=== PATIENT | female | born 1955 | race Caucasian/White ===

== ENCOUNTER 2019-12-17 08:41 | Outpatient (CLI) | payer BC, SELFPAY ==
--- NOTE | ~2019-12-17 | DEXA_ITS ---
Bone Density Report Name: Rosaura Barber Age: 64 Sex: Female Ethnicity: White Date of : 1955 Indication: postmenopausal osteoporosis; parental hip fracture; height loss; prior fracture; cancer; asthma or emphysema; hysterectomy; Referring Provider: Tylor Jaeger Study: Bone densitometry was performed. Exam Date: December 17, 2019 Accession number: [id number] Bone Density: Region BMD T-score Z-score Classification AP Spine (L2, L3, L4) 0.794 -2.6 -0.8 Osteoporosis Femoral Neck (Left) 0.683 -1.5 0.0 Osteopenia Total Hip (Left) 0.984 0.3 1.5 Normal Total Hip Bilateral Avg 0.967 0.2 1.4 Normal Femoral Neck (Right) 0.713 -1.2 0.3 Osteopenia Total Hip (Right) 0.949 0.1 1.3 Normal World Health Organization criteria for BMD impression classify patients as: Normal (T-score at or above -1.0), Osteopenia (T-score between -1.0 and -2.5), or Osteoporosis (T-score at or below -2.5). 10-year Fracture Risk: FRAX not reported because: Some T-score for Spine Total or Hip Total or Femoral Neck at or below -2.5 Previous Exams: Region Exam Age BMD T-score BMD Change BMD Change Date g/cm2 vs Baseline vs Previous AP Spine(L2, L3, L4) 12/17/2019 64 0.794 -2.6 -0.100(-11.2%) 0.012(1.5%) 11/08/2017 62 0.782 -2.7 -0.112(-12.5%) -0.112(-12.5%) 09/29/2004 49 0.894 -1.7 Total Hip(Left) 12/17/2019 64 0.984 0.3 0.001(0.1%)# -0.013(-1.3%) 11/08/2017 62 0.997 0.4 0.014(1.4%)# 0.014(1.4%)# 09/29/2004 49 0.983 0.3 Total Hip(Right) 12/17/2019 64 0.949 0.1 -0.005(-0.5%)# 0.040(4.4%)* 11/08/2017 62 0.909 -0.3 -0.045(-4.7%)# -0.045(-4.7%)# 09/29/2004 49 0.953 0.1 *Denotes significance at 95% confidence level, LSC for AP Spine = 0.022 g/cm2, LSC for Total Hip = 0.027 g/cm2 Clinical Information Provided by Patient: Has had a low trauma fracture Parent has had a hip fracture Has used the following medications: Vitamin D, Calcium Has the following medical conditions: Asthma or Emphysema, Cancer, Hysterectomy Patient maximum height was 62.5 No regular weight bearing exercise Does not regularly consume dairy products Drinks caffeinated beverages Onset of menses at age 12 Number of children 2 Impression: The patient has established osteoporosis, based on the Total Spine T-score and the existence of a prior fracture. The patient has risk factors, including: parental hip fracture, previous fracture. No significant bone l
== END 2019-12-17 08:42 | disposition home or self-care (01) ==
LOC: ANHIMG 08:44
PROVIDERS: PCP Internal Medicine; Visit Provider Internal Medicine Hematology & Oncology
DX: M81.0 Age-related osteoporosis without current pathological fracture (principal); M85.852 Other specified disorders of bone density and structure, left thigh; M85.851 Other specified disorders of bone density and structure, right thigh
CPT/HCPCS: 77080

== ENCOUNTER 2021-08-02 08:02 | Outpatient (CLI) | payer MEDICARE, SELFPAY ==
--- NOTE | ~2021-08-02 | CT_ITS ---
EXAMINATION: CT diagnostic chest w con EXAM DATE: 08/02/2021 08:55 INDICATION: Lung nodule. MDS. TECHNIQUE: Spiral CT of the chest following intravenous injection of 75 mL Omnipaque 350. Axial, cor onal and sagittal images of the chest were reviewed. Coronal maximum intensity pixel images of chest reviewed. The dose-length product (DLP) for this examination was 498.84 mGy-cm. The exposure was t ailored according to patient size (auto mA exposure control), and iterative reconstruction (ASIR) was used as additional dose reduction technique. Correlation is made to chest x-ray from 2011. FINDINGS: There is an 8 mm nodule in the left upper lobe which may have faint calcification centrall y versus less likely possibility of enhancement. No spiculations. Appearance more suggestive of granu trang or hamartoma than malignancy, but a PET/CT, or a follow-up [address] without contrast is recommended for a nodule of this size. There are no pleural or pericardial effusions. Tracheobronchial tree is patent. There is no media stinal, hilar or axillary lymphadenopathy. There is no pneumothorax. Heart normal in size. Ther e is mild coronary arterial calcification, arterial sclerosis. Hepatic steatosis. There is thoracic spondylosis without osteoblastic or osteolytic lesions identified. IMPRESSION: Left upper lobe indeterminate nodule; recommend PET/CT or 3 month follow-up noncontrast c hest CT. Reviewed, dictated and finalized at location A. OOM HOST/HOSTESS IMPRESSION: Left upper lobe indeterminate nodule; recommend PET/CT or 3 month f ollow-up noncontrast chest CT.
[2021-08-02 08:43] LABS: Estimated Glomerular Filt Rate > 60
== END 2021-08-02 08:03 | disposition home or self-care (01) ==
PROVIDERS: PCP Internal Medicine; Visit Provider Internal Medicine Hematology & Oncology
DX: R91.1 Solitary pulmonary nodule (principal)
CPT/HCPCS: 71260; Q9967

== ENCOUNTER 2021-10-31 08:44 | Outpatient (CLI) | payer MEDICARE, SELFPAY ==
[2021-10-31 09:13] LABS: Basophils Percent Auto 0.3 % (0.2-1.2); Eosinophils Absolute Auto 0.3 K/mm3 (0-0.3); Eosinophils Percent Auto 3.2 % (0-4.4); Hematocrit 32.4 % (37.0-47.0); Immature Granulocyte Absolute 0.03 K/mm3 (0.00-0.031); Immature Granulocyte Percent A 0.3 % (0-0.5); Lymphocytes Absolute Auto 2.92 K/mm3 (0.9-3.2); Lymphocytes Percent Auto 33.4 % (18.3-44.2); Mean Corpuscular HGB Conc 30.9 g/dl (32-36); Mean Corpuscular Hemoglobin 30.3 pg (26-34); Mean Corpuscular Volume 98.2 fl (80-100); Mean Platelet Volume 9.4 fl (7.4-10.4); Monocytes Absolute Auto 0.5 K/mm3 (0.1-0.6); Monocytes Percent Auto 5.6 % (2.6-8.5); Neutrophils Percent Auto 57.2 % (45.5-73.1); Platelet Count Result 244 k/mm3 (150-375); Red Cell Distribution Width 13.3 % (11.5-14.5); White Blood Count 8.7 K/mm3 (4.5-10.0)
[2021-10-31 12:30] LABS: Iron 113 ug/dL (37-170)
[2021-10-31 12:44] LABS: Percent Iron Saturation 44 % (20-50)
== END 2021-10-31 08:45 | disposition home or self-care (01) ==
PROVIDERS: PCP Internal Medicine; Visit Provider Internal Medicine Hematology & Oncology
DX: D46.9 Myelodysplastic syndrome, unspecified (principal)
CPT/HCPCS: 36415; 82607; 82728; 83540; 83550; 85025

== ENCOUNTER 2021-11-02 09:55 | Outpatient (CLI) | payer MEDICARE, SELFPAY ==
--- NOTE | ~2021-11-02 | CT_ITS ---
EXAMINATION: CT diagnostic chest wo con DATE: 11/02/2021 10:16 INDICATION: Follow-up lung nodules TECHNIQUE: Computed tomography (CT) of the chest was performed without intravenous contrast. The dose -length product was 340.33 mGy-cm. Automated exposure control and iterative reconstruction technique were employed. COMPARISON: CT dated 08/02/2021 FINDINGS: There is a 10 x 9 mm left upper lobe nodule without significant change from prior examinati on allowing for technique. This nodule measures maximum SUV of 143 and is likely centrally calcified. No thoracic lymphadenopathy. No significant pleural or pericardial effusion. Fatty infiltration of t he liver. There is a small 3 mm satellite nodule which is unchanged. No endobronchial lesions. There is a 3 mm left lower lobe nodule, image 77, unchanged. There is a stable pleural-based right lower lo be nodule measuring 6 x 3 mm, image 78. No focal airspace consolidation. IMPRESSION: 1. Stable bilateral pulmonary nodules, largest in the left upper lobe measuring 10 mm, likely sequela of previous infectious/inflammatory disease. Follow-up low dose CT chest in 12 months recommended. Reviewed, dictated and finalized at location A. OENGRAVING RETOUCHER IMPRESSION: 1. Stable bilateral pulmonary nodules, largest in the left upper lobe measuring 10 mm, likely sequela of previous infectious/inflammatory disease. Follow-up l ow dose CT chest in 12 months recommended.
== END 2021-11-02 09:56 | disposition home or self-care (01) ==
LOC: ANHIMG 10:00
PROVIDERS: PCP Internal Medicine; Visit Provider Internal Medicine Hematology & Oncology
DX: R91.8 Other nonspecific abnormal finding of lung field (principal)
CPT/HCPCS: 71250

== ENCOUNTER 2022-11-01 06:34 | Outpatient (CLI) | payer MEDICARE, SELFPAY ==
--- NOTE | ~2022-11-01 | CT_ITS ---
EXAMINATION: CT diagnostic chest wo con DATE: 11/01/2022 07:07 INDICATION: Lung nodule. TECHNIQUE: Computed tomography (CT) of the chest was performed without intravenous contrast. The dose -length product was 232.92 mGy-cm. Automated exposure control and iterative reconstruction technique were employed. COMPARISON: CT dated 11/02/2021 and 08/02/2021 FINDINGS: Heart size is normal. No significant pleural or pericardial effusion. Status post cholecyst ectomy. No thoracic lymphadenopathy. No pneumothorax. There is a calcified nodule in the left upper l obe measuring 8 mm, consistent with chronic granulomatous disease. Stable 3 mm left upper lobe nodule . Stable 3-4 mm pleural-based nodule right lower lobe. Stable 3-4 mm right middle lobe nodule, image 68 . Stable 2 mm pleural-based nodules, image 60 in the right mid thorax laterally. No endobronchial lesio ns. No pneumothorax. Mild thoracic spondylosis. Mild chronic anterior wedging of multiple midthoracic vertebra. No focal lytic or blastic lesions. IMPRESSION: 1. Stable bilateral pulmonary nodules, likely benign granulomatous disease. Consider follow-up low do se CT chest in 12 months. Reviewed, dictated and finalized at location B. NISTRATIVE DIETITIAN IMPRESSION: 1. Stable bilateral pulmonary nodules, likely benign granulomatous disease. 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
== END 2022-11-01 06:35 | disposition home or self-care (01) ==
PROVIDERS: PCP Physician Assistant Medical; Visit Provider Internal Medicine Hematology & Oncology
DX: R91.8 Other nonspecific abnormal finding of lung field (principal)
CPT/HCPCS: 71250

== ENCOUNTER 2023-09-10 14:37 | Outpatient (CLI) | payer MEDICARE, SELFPAY ==
[2023-09-10 16:55] LABS: Appearance Urine Cloudy (Clear); Bacteria Urine None Seen /hpf; Bilirubin Urine Negative (Negative); Blood Urine Negative (Negative); Calcium Oxalate Crystals Urine Present /hpf; Color Urine Yellow (Yellow); Glucose Urine UA Negative (Negative); Ketones Urine Trace mg/dL (Negative); Leukocyte Esterase Ur Negative LEU/UL (Negative); Need Manual Microscopic Reviewed; Nitrate Urine Negative (Negative); Non Pathogenic Casts 0-2; Protein Urine Negative (Negative); RBC Urine 0-2 /hpf (0-2); Specific Grav Ur 1.024 (1.001-1.035); Squamous Epithelial Cell Urine Few /hpf (Few); Urobilinogen Urine 0.2 mg/dL (<2.0); WBC Urine 0-5 /hpf
[2023-09-10 17:01] LABS: Add Urine Microscopic? YES
== END 2023-09-10 14:38 | disposition home or self-care (01) ==
LOC: ANHLAB 14:40
PROVIDERS: Nurse Practitioner Family; PCP Physician Assistant Medical; Visit Provider Internal Medicine Hematology & Oncology
DX: N39.0 Urinary tract infection, site not specified (principal)
CPT/HCPCS: 81001

== ENCOUNTER 2023-09-14 10:43 | Emergency (ER) | payer MEDICARE, SELFPAY ==
[2023-09-14 10:48] VITALS: BP 142/82; PULSE 100; RESP 14; TEMP 36.7; O2SAT 98
--- NOTE | 2023-09-14 11:26 | ED.WOUNDLAC ---
HPI - Wound/Laceration General Chief Complaint: Wound/Laceration Stated Complaint: cut off tip of finger on Sunday Time Seen by Provider: 09/14/23 11:05 History of Present Illness HPI narrative: 68-year-old female history of hypertension reports for evaluation for concern for an infection to her left finger. Patient accidentally avulsed her left 2nd finger 3 days ago while using a filler leaf cutter long while sewing. States she with [facility] where they stop the bleeding, obtained x-rays are unremarkable. She states her tetanus is up-to-date. They did not start her on any medications but did apply a Xeroform dressing and advised her to follow-up with her PCP. States the body she followed up with her PCP who prescribed her pain medications which she has been taking with improvement. She reports today because yesterday she developed a fluid-filled blister to the proximal phalanx of the left 2nd finger and today developed streaking down the finger. She has been soaking her finger and hydrogen peroxide and soapy water. She denies fever, vomiting or other signs of infection. No history of diabetes or vascular disease. Related Data Home Medications Medication Instructions Recorded Confirmed ffuoalvcwnco-oxszkyqs-chicq acid 1 cap PO DAILY 07/05/20 08/10/23 400 mcg-vitamin K 80 mcg capsule (Multi For Her 50 Plus) aspirin 81 mg tablet,delayed 81 mg PO DAILY 11/22/20 08/10/23 release phenylephrine HCl 10 mg tablet 10 mg PO Q4-6H PRN 08/10/23 08/10/23 (Sudafed PE) Allergies Allergy/AdvReac Type Severity Reaction Status Date / Time iodine Allergy Intermediate SWELLING Verified 09/14/23 10:51 Sulfa (Sulfonamide Allergy Intermediate hives Verified 09/14/23 10:51 Antibiotics) shellfish derived Allergy Mild Swelling Verified 09/14/23 10:51 of Lip/Tongue/Throat amlodipine AdvReac Other Verified 09/14/23 10:51 Review of Systems Review of Systems: CONSTITUTIONAL: Denies fever, chills, or sweats. EYES: Denies visual changes, redness, or discharge. ENT: Denies rhinorrhea, congestion, sore throat, or otalgia. CARDIOVASCULAR: Denies chest pain, palpitations, or edema. RESPIRATORY: Denies cough or dyspnea. GASTROINTESTINAL: Denies abdominal pain, nausea, vomiting, or diarrhea. GENITOURINARY: Denies dysuria or hematuria. SKIN: See HPI MUSCULOSKELETAL: Denies back pain, joint pain, or myalgia. NEUROLOGIC: Denies headache, numbness, or weakness. PSYCHIATRIC: Denies anxiety or depression. [facility] Past Medical History Medical History Arthritis Arthritis of finger of left hand Depression Hepatic steatosis Hyperglycemia Trigger finger, left little finger Surgical History Surgical History History of cholecystectomy History of elbow surgery ORIF History of tonsillectomy History of total hysterectomy with bilateral salpingo-oophorectomy (BSO) Family History Family History Sibling Diabetes mellitus Malignant neoplasm of prostate Mother Family history of suicide Father Family history of Alzheimer's disease Social History Social History Smoking status: Never smoker Second hand tobacco smoke exposure: No Alcohol intake: never Substance use: never Substance use type: does not use Lack of Transportation: No Lack of Food: Never True Current Housing: I Have Housing Concerned About Future Housing: No Difficulty Paying Gas/Electric Bills: No Difficulty Paying for Meds: No Currently Unemployed: No Difficulty w/ Childcare or Family Care: No Living arrangements: with family Occupation/Education: retired Gender identity (if verbalized by the patient): Female Sexual Orientation (if Verbalized by the Patient): Straight or Heterosexual
[2023-09-14] MEDS: IBUPROFEN 600 MG TABLET PO (11:41)
[2023-09-14] MEDS: CEPHALEXIN 500 MG CAPSULE PO (11:42)
[2023-09-14 11:49] VITALS: RESP 22
== END 2023-09-14 11:53 | disposition home or self-care (01) ==
PROVIDERS: Emergency Provider Physician Assistant; PCP Nurse Practitioner Family
DX: S61.201A Unspecified open wound of left index finger without damage to nail, initial encounter (principal); L03.012 Cellulitis of left finger; I10 Essential (primary) hypertension; M19.042 Primary osteoarthritis, left hand; Z79.82 Long term (current) use of aspirin; Z90.49 Acquired absence of other specified parts of digestive tract; Z90.710 Acquired absence of both cervix and uterus; Z90.722 Acquired absence of ovaries, bilateral; Z90.79 Acquired absence of other genital organ(s); W27.8XXA Contact with other nonpowered hand tool, initial encounter
CPT/HCPCS: 99283; A9270

== ENCOUNTER 2023-11-21 09:49 | Outpatient (CLI) | payer MEDICARE, SELFPAY ==
--- NOTE | ~2023-11-21 | CT_ITS ---
EXAMINATION: CT diagnostic chest wo con DATE: 11/21/2023 10:04 INDICATION: Lung nodule TECHNIQUE: Computed tomography (CT) of the chest was performed without intravenous contrast. Automate d exposure control and iterative reconstruction technique were employed. Exam dose: 238.42 mGy-cm to padimni exam DLP. COMPARISON: 11/01/2022 CT chest FINDINGS: A centrally calcified left upper lobe pulmonary granuloma measuring approximately 9.5 mm, r elatively stable since 11/01/2022. Relatively stable 2.5 mm peripheral posterolateral left lower lobe pulmonary nodule (series 4 image 7 3). Scattered stable additional peripheral small pulmonary nodular densities of the middle lobe (2 mm and 1.8 mm (image 58), 4 mm pleural-based opacity of posterior aspect of superior segment right lower lo be (image 45), 5 mm pleura-based nodule posterolateral right lower lobe (image 71), lateral right fredis g base 2.5 mm pleural-based opacity (image 77). No new or developing pulmonary mass lesion is noted. No pulmonary infiltrate or consolidation. Normal heart size. No hilar or mediastinal enlargement. No thoracic aortic aneurysm. Normal morphology of the adrenal glands. IMPRESSION: Stable scattered pulmonary nodular densities; no significant new or developing density s kizzy 11/01/2022 Reviewed, dictated and finalized at Location A. Reviewed, dictated and finalized at location B. IMPRESSION: Stable scattered pulmonary nodular densities; no significant new o r developing density since 11/01/2022
== END 2023-11-21 09:50 | disposition home or self-care (01) ==
LOC: ANHIMG 09:53
PROVIDERS: PCP Physician Assistant Medical; Visit Provider Nurse Practitioner Family
DX: R91.1 Solitary pulmonary nodule (principal); R91.8 Other nonspecific abnormal finding of lung field
CPT/HCPCS: 71250

== ENCOUNTER 2024-01-10 07:42 | Outpatient (CLI) | payer MEDICARE, SELFPAY ==
--- NOTE | ~2024-01-10 | DEXA_ITS ---
Bone Density Report Name: ELINOR SHEFFIELD Age: 68 Sex: Female Ethnicity: White Date of : 1955 Indication: postmenopausal; screening for osteoporosis; height loss; prior fracture; cancer; asthma or emphysema; hysterectomy; secondary osteoporosis; Referring Provider: SAUNDRA BECKER Study: Bone densitometry was performed. Exam Date: January 10, 2024 Accession number: [id number] Bone Density: Region BMD T-score Z-score Classification AP Spine(L1-L4) 0.832 -2.0 0.1 Osteopenia Femoral Neck (Left) 0.543 -2.8 -1.0 Osteoporosis Total Hip (Left) 0.908 -0.3 1.2 Normal Femoral Neck (Right) 0.615 -2.1 -0.4 Osteopenia Total Hip (Right) 0.873 -0.6 0.9 Normal Total Hip Mean 0.891 -0.5 1.1 Normal World Health Organization criteria for BMD impression classify patients as: Normal (T-score at or above -1.0), Osteopenia (T-score between -1.0 and -2.5), or Osteoporosis (T-score at or below -2.5). 10-year Fracture Risk: FRAX not reported because: Some T-score for Spine Total or Hip Total or Femoral Neck at or below -2.5 Prior hip or vertebral fracture Clinical Information Provided by Patient: Have had a previous hip or vertebral fracture Has had a low trauma fracture Has secondary osteoporosis Has used the following medications: Vitamin D, Calcium Has the following medical conditions: Asthma or Emphysema, Cancer, Hysterectomy Patient maximum height was 62 Menopause Age: 30 No regular weight bearing exercise Drinks caffeinated beverages Onset of menses at age 11 Number of children 2 Impression: The patient has established osteoporosis, based on the Left Femoral Neck T-score and the existence of a prior fracture. The patient has risk factors, including: previous fracture. Discussion: HIGH RISK OF FRACTURE. BONE DENSITY IS UNDESIRABLY LOW AT ONE OR MORE SKELETAL SITES, CONSISTENT WITH POSTMENOPAUSAL OSTEOPOROSIS. This patient's lowest T-score, in a patient who has previously fractured, meets the World Health Organization's (WHO) criteria for severe osteoporosis. In untreated patients, the risk of osteoporotic fracture increases approximately two-fold for each 1.0 SD decrease in T-score. Low bone density is not the only risk factor for fracture; also consider factors such as patient's age, frailty or poor health, risk of falling, risk of injury, previous osteoporotic fracture, family history of osteoporosis, cigarette smoking, low body weight, etc. Not everyone with low bone mineral density has osteoporosis; osteomalacia and other metabolic bone disorders should also be considered. Patients who have osteoporosis should be evaluated for specific diseases and conditions (secondary causes) that may cause or contribute to bone loss. The [place] [employer] Endocrinologists (AACE) and National O
== END 2024-01-10 07:43 | disposition home or self-care (01) ==
PROVIDERS: PCP Physician Assistant Medical; Visit Provider Internal Medicine Hematology & Oncology
DX: R91.1 Solitary pulmonary nodule (principal); M85.88 Other specified disorders of bone density and structure, other site; M81.0 Age-related osteoporosis without current pathological fracture; M85.851 Other specified disorders of bone density and structure, right thigh
CPT/HCPCS: 77080

== ENCOUNTER 2024-01-26 11:56 | Emergency (ER) | payer MEDICARE, SELFPAY ==
--- NOTE | ~2024-01-26 | XR_ITS ---
AP and lateral views of the left femur Clinical History: Pain Findings: No acute fracture or dislocation is seen. Osseous alignment is anatomic. Moderate tricompar tmental degenerative change of the left knee noted. Left hip joint is intact. Soft tissues are unrema rkable. Impression: No acute fracture or dislocation. Degenerative changes at the knee, as above. Reviewed, dictated and finalized at location . Impression: No acute fracture or dislocation. Degenerative changes at the knee, as above.
--- NOTE | ~2024-01-26 | XR_ITS ---
AP and lateral views of the left tibia/fibula Clinical History: Trauma Findings: No acute fracture or dislocation is seen. Osseous alignment is anatomic. There is moderate degenerative change of the knee. Soft tissues are unremarkable. Impression: No acute fracture or dislocation. Moderate degenerative change at the knee. Reviewed, dictated and finalized at [facility]. Impression: No acute fracture or dislocation. Moderate degenerative change at the knee.
--- NOTE | ~2024-01-26 | US_ITS ---
Duplex Sonography of the left extremity: Indication: Pain Findings: Sagittal and transverse B-mode images as well as color-flow imaging were performed on the l eft femoral and popliteal veins. B-mode examination was done without and with compression in the tra nsverse plane. There is good visualization of the common femoral, proximal profunda femoral, superfi cial femoral, greater saphenous, and popliteal veins. Normal flow was seen on color-flow imaging. No rmal compressibility was demonstrated. Visualized calf veins are also patent. There is a 7.2 x 2.7 x 2.0 cm cystic mass in the popliteal region, most compatible large Mccray's cyst . Impression: No evidence of deep vein thrombosis involving the left lower extremity. 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 Reviewed, dictated and finalized at location . Impression: No evidence of deep vein thrombosis involving the left lower extremity. 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
[2024-01-26 12:10] VITALS: BP 144/65; PULSE 98; RESP 18; TEMP 36.8; O2SAT 98
[2024-01-26 14:59] LABS: Basophils Percent Auto 0.3 % (0.2-1.2); Eosinophils Absolute Auto 0.2 K/mm3 (0-0.3); Eosinophils Percent Auto 2.5 % (0-4.4); Hematocrit 33.9 % (37.0-47.0); Hemoglobin 10.8 g/dL (12.0-15.0); Immature Granulocyte Absolute 0.04 K/mm3 (0.00-0.031); Immature Granulocyte Percent A 0.4 % (0-0.5); Lymphocytes Absolute Auto 2.72 K/mm3 (0.9-3.2); Lymphocytes Percent Auto 28.3 % (18.3-44.2); Mean Corpuscular HGB Conc 31.9 g/dl (32-36); Mean Corpuscular Hemoglobin 30.2 pg (26-34); Mean Corpuscular Volume 94.7 fl (80-100); Mean Platelet Volume 9.9 fl (7.4-10.4); Monocytes Absolute Auto 0.5 K/mm3 (0.1-0.6); Monocytes Percent Auto 5.1 % (2.6-8.5); Neutrophils Absolute Auto 6.1 K/mm3 (1.3-6.7); Neutrophils Percent Auto 63.4 % (45.5-73.1); Platelet Count Result 285 k/mm3 (150-375); Red Blood Count 3.58 M/mm3 (4.2-5.4); Red Cell Distribution Width 13.5 % (11.5-14.5); White Blood Count 9.6 K/mm3 (4.5-10.0)
[2024-01-26 15:09] LABS: Alanine Aminotransferase 21 U/L (6-35); Albumin Level 4.3 g/dL (3.5-5.1); Alkaline Phosphatase 95 U/L (38-126); Anion Gap 9 mmol/L (4-12); Aspartate Amino Transferase 30 U/L (14-36); Bilirubin,Total 0.6 mg/dL (0.2-1.3); Blood Urea Nitrogen 8 mg/dL (7-17); Calcium 8.5 mg/dL (8.4-10.2); Carbon Dioxide 23 mmol/L (22-30); Chloride 109 mmol/L (98-107); Estimated CRCL calculation 74 ml/min; Estimated Glomerular Filt Rate > 60; Glucose 125 mg/dL (65-110); Potassium 3.8 mmol/L (3.4-5.0); Sodium 141 mmol/L (137-145)
--- NOTE | 2024-01-26 15:39 | ED.LOWEXIN ---
HPI - Extremity Injury (Lower) General Chief Complaint: Extremity Injury, Lower Stated Complaint: L leg pain Time Seen by Provider: 01/26/24 13:57 Source: patient Mode of arrival: ambulatory Limitations: no limitations History of Present Illness HPI Narrative: Patient is a 68-year-old female who presents the ED with report of left lower extremity pain. Patient reports she sees Dr. Jaeger for osteoporosis and hypocalcemia. She received her 1st calcium infusion last week for this. She was told she may have some bone pain related to the infusions. Two days ago, she fell off a swing and felt as though she strained her left leg. She has had pain throughout her left posterior thigh/knee/calf since then. She spoke with Dr. Jaeger and was referred here for further evaluation. Denies numbness. Denies hip or back pain. Denied HI/LOC. Related Data Home Medications Medication Instructions Recorded Confirmed fmedlsqgqlzc-rryncjqv-cwlqp acid 1 cap PO DAILY 07/05/20 01/24/24 400 mcg-vitamin K 80 mcg capsule (Multi For Her 50 Plus) aspirin 81 mg tablet,delayed 81 mg PO DAILY 11/22/20 01/24/24 release phenylephrine HCl 10 mg tablet 10 mg PO Q4-6H 08/10/23 01/24/24 (Sudafed PE) Allergies Allergy/AdvReac Type Severity Reaction Status Date / Time iodine Allergy Intermediate SWELLING Verified 01/26/24 12:15 Sulfa (Sulfonamide Allergy Intermediate hives Verified 01/26/24 12:15 Antibiotics) shellfish derived Allergy Mild Swelling Verified 01/26/24 12:15 of Lip/Tongue/Throat amlodipine AdvReac Other Verified 01/26/24 12:15 Review of Systems Review of Systems: CONSTITUTIONAL: Denies fever, chills, or sweats. GASTROINTESTINAL: Denies abdominal pain, nausea, vomiting MUSCULOSKELETAL: See HPI. NEUROLOGIC: Denies headache, dizziness, numbness, or weakness. All systems reviewed & are unremarkable except as noted in HPI and below PMFSH Past Medical History Medical History Arthritis Arthritis of finger of left hand Depression Hepatic steatosis Hyperglycemia Osteoporosis Trigger finger, left little finger Surgical History Surgical History History of cholecystectomy History of elbow surgery ORIF History of tonsillectomy History of total hysterectomy with bilateral salpingo-oophorectomy (BSO) Family History Family History Sibling Diabetes mellitus Malignant neoplasm of prostate Mother Family history of suicide Father Family history of Alzheimer's disease Social History Social History Smoking status: Never smoker Second hand tobacco smoke exposure: No Alcohol intake: never Substance use: never Substance use type: does not use Lack of Transportation: No Lack of Food: Never True Current Housing: I Have Housing Concerned About Future Housing: No Difficulty Paying Gas/Electric Bills: No Difficulty Paying for Meds: No Currently Unemployed: No Difficulty w/ Childcare or Family Care: No Living arrangements: with family Occupation/Education: retired Gender identity (if verbalized by the patient): Female Sexual Orientation (if Verbalized by the Patient): Straight or Heterosexual Exam Narrative: GENERAL: Well appearing, morbidly obese with BMI of 43.5, non-toxic, in no acute distress. HEAD: Normocephalic, atraumatic. RESPIRATORY: Airway patent, respirations nonlabored. CARDIOVASCULAR: Regular rate and rhythm without murmurs, rubs, or gallops. Pedal pulses intact. MUSCULOSKELETAL: Moves all extremities. No gross deformities. No tenderness over lumbar spine, lumbosacral region, left hip joint. Mild tenderness throughout left distal posterior thigh/popliteal region/upper calf region. No tenderness over anterior
== END 2024-01-26 16:20 | disposition home or self-care (01) ==
PROVIDERS: Emergency Provider Physician Assistant; PCP Physician Assistant Medical
DX: S86.912A Strain of unspecified muscle(s) and tendon(s) at lower leg level, left leg, initial encounter (principal); M71.22 Synovial cyst of popliteal space [Baker], left knee; M19.90 Unspecified osteoarthritis, unspecified site; F32.A Depression, unspecified; W09.1XXA Fall from playground swing, initial encounter
CPT/HCPCS: 36415; 73552; 73590; 80053; 85025; 93971; 99284

== ENCOUNTER 2024-09-15 12:28 | Outpatient (CLI) | payer MEDICARE, SELFPAY ==
--- NOTE | ~2024-09-15 | CT_ITS ---
EXAMINATION:CT diagnostic chest wo con DATE: 09/15/2024 12:53 INDICATION: Lung nodule. TECHNIQUE: Computed tomography (CT) of the chest was performed without intravenous contrast. Automate d exposure control and iterative reconstruction technique were employed. The dose-length product (DLP ) was 409.72 mGy-cm. COMPARISON: Chest CT 11/21/2023, 11/01/2022 FINDINGS: There is a 3 mm nodule in left lower lobe, likely benign. There is a nodule with central ca lcification in left upper lobe, consistent with old granulomatous disease. There is a 3 mm nodule in left upper lobe, likely benign. No pleural effusion. The heart size is normal. There are coronary art aaron calcifications. No pericardial effusion. There is diffuse hepatic steatosis. There is mild thorac ic spondylosis. There is mild chronic anterior wedging of multiple vertebral bodies. IMPRESSION: 1. Stable pulmonary nodules, likely benign. Reviewed, dictated and finalized at location A. TIONAL TRAINER
== END 2024-09-15 12:29 | disposition home or self-care (01) ==
PROVIDERS: PCP Physician Assistant Medical; Visit Provider Internal Medicine Hematology & Oncology
DX: R91.8 Other nonspecific abnormal finding of lung field (principal)
CPT/HCPCS: 71250

== ENCOUNTER 2024-12-02 06:50 | Outpatient (CLI) | payer MEDICARE, SELFPAY ==
--- NOTE | ~2024-12-02 | CT_ITS ---
CT Scan of the Chest without Contrast: Clinical Indication: Lung nodule Technique: Contiguous sections were acquired throughout the chest without intravenous contrast. Dose reduction technique was used on this scan by utilizing automated exposure control and iterative recon struction technique. The dose-length product (DLP) was 404.92 mGy-cm. COMPARISON: 09/15/2024 Findings: There is no evidence of any significant mediastinal, hilar or axillary lymphadenopathy. The mediastin al soft tissues appear normal. There is no evidence of pleural or pericardial effusion. Stable left upper lobe granuloma with central coarse calcification. Additional tiny noncalcified pulm onary nodules are unchanged.. Images through the upper abdomen reveal no abnormalities. Impression: Stable subcentimeter pulmonary nodules. Stable left upper lobe granuloma. Reviewed, dictated and finalized at [facility]. Impression: Stable subcentimeter pulmonary nodules. Stable left upper lobe granuloma.
--- OUTSIDE RECORDS SUMMARY | 2024-12-02 06:54 | XMS_ITS | Clinical Summary ---
Author Organization [facility] Address [address] [place] [address] Care Team Providers Care Transport Technician Name Role Phone Unavailable Primary Care Provider Unavailabl e Allergies Active Allergy Reactions Criticality Noted Date Comments Iodine Itching Low 06/07/2020 Shellfish Containing Products Shortness of Breath/Wheezing High 06/07/2020 Shellfish Derived Hyperkalemia Medium 11/06/2016 Medications sertraline (ZOLOFT) 100 mg tablet Take 100 mg by mouth daily. Active montelukast (SINGULAIR) 10 mg tablet TAKE 1 TABLET BY MOUTH EVERY DAY 05/03/2020 Active celecoxib (CeleBREX) 200 mg capsule Take 200 mg by mouth daily. 02/01/2022 Active MULTIVITAMIN ORAL Take by mouth. Active predniSONE (DELTASONE) 50 mg tablet Take 1 tablet by mouth 13 hours, 7 hours, and [address] Scan. 3 Tablet 11/27/2024 Active Active Problems Problem Noted Date Diagnosed Date Morbid obesity with body mass index of 40.0-49.9 09/07/2017 Obesity (BMI 35.0-39.9 without comorbidity) 04/2017 Myelodysplastic syndrome 12/26/2016 Chronic anemia 11/06/2016 Encounters Date Type Department Care Team Description 11/27/[address] [facility] Oncology and Hematology - [place] [address] [place] [address] Tylor Jaeger MD Procedure Results 11/26/[address] [facility] Oncology and Hematology [place] [address] [place] [address] Tylor Jaeger MD 11/19/2024 External Device Data STL ABSTRACTION Provider, Abstract 11/08/2024 External Device Data STL ABSTRACTION Provider, Abstract 11/07/2024 External Device Data STL ABSTRACTION Provider, Abstract 11/05/2024 External Device Data STL ABSTRACTION Provider, Abstract 11/04/2024 External Device Data STL ABSTRACTION Provider, Abstract 10/21/2024 External Device Data STL ABSTRACTION Provider, Abstract 09/24/2024 External Device Data STL ABSTRACTION Provider, Abstract 09/23/2024 External Device Data STL ABSTRACTION Provider, Abstract 09/17/2024 4:30 PM PATTERN ASSEMBLER Telephone Check Up [facility] Oncology and Hematology [facility] [address] [place] [address] Tylor Jaeger MD 09/17/2024 External Device Data STL ABSTRACTION Provider, Abstract 09/16/[address] [facility] Oncology and Hematology [facility] [address] [place] [address] Tylor Jaeger MD 09/15/2024 11:00 AM PATTERN ASSEMBLER Office Visit [facility] Oncology and Hematology [facility] [address] [place] [address] Tylor Jaeger MD Lung nodule (Primary Dx) from Last 3 Months Family History Medical History Relation Name Comments Diabetes Brother 1 Heart Disease Brother 1 Other Brother 1 Unknown Brother 3 Heart Disease Father Diabetes Sister 1 Ovarian Cancer Sister 2 Relation Name Status Comments Brother 1 Alive Brother 2 Alive Brother 3 Alive Brother 4 Alive Brother 5 Father Mother Sister 1 Alive Sister 2 Alive Sister 3 Alive Social History Tobacco Use Types Packs/Day Years Used Date Smoking Tobacco: Never Tobacco Cessation:Counseling Given: Not Answered Alcohol Use Standard Drinks/Week Comments Yes 7 (1 standard drink = 0.6 oz pur e alcohol) a night weekly Comments No Sex and Gender Information Value Date Recorded Sex Assigned at Not on file Legal Sex Female 8:31 AM PATTERN ASSEMBLER Gender Identity Not on file Sexual Orientation Not on file Last Filed Vital Signs Vital Sign Reading Time Taken Comments Blood Pressure 132/70 09/15/2024 11:43 AM PATTERN ASSEMBLER Pulse 99 09/15/2024 11:43 AM PATTERN ASSEMBLER Temperature 36.7 C (98 F) 09/15/2024 11:43 AM PATTERN ASSEMBLER Respiratory Rate 16 09/15/2024 11:4 3 AM PATTERN ASSEMBLER Oxygen Saturation 96% 09/15/2024 11: 43 AM PATTERN ASSEMBLER Inhaled Oxygen Concentration - - Weight 103.8 kg (228 lb 12.8 oz) 2024 11:43 AM PATTERN ASSEMBLER Height 157.5 cm (5' 2 ) 06/07/2022 9:52 AM CDT Body Mass Index 41.85 06/07/2022 9:52 AM CDT Plan of Treatment Upcoming Encounters Date Type Department Care Team (Late st Contact Info) Description 12/11/2024 4:30 PM CDT Telephone Check Up [facility] Oncology [place] [address] [place] [address] Tylor Jaeger MD [address] [place] [phone] 09/18/2025 8:30 AM PATTERN ASSEMBLER Office Visit [facility] Oncology and [facility] [address] [place] [address] [place] [address] [place] [address] [employer] [address] [place] [id number] Health Maintenance Due Date Last Done Comments Pre-Diabetes and Diabetes Screening 1955 DTAP/TDAP/TD VACCINES (1 - Tdap) 1974 Traditional Medicare (ACO) A nnual Wellness Visit 1974 BREAST CANCER SCREENING 1995 COLORECTAL SCREENING 2000 Colorectal Cancer Screening 2000 FIT-DNA Q 3 years 2000 FIT/FOBT Q 1 year 2000 Flex Sig/CT Colonography Q 5 years 2000 PNEUMOCOCCAL VACCINE 50+ YEA RS (1 of 1 - PCV) 2005 ZOSTER VACCINE (1 of 2) 2005 RSV VACCINE (60+ or ) (1 - Risk 60-74 years 1-dose series) 2015 INFLUENZA VACCINE (#1) 2024 COVID-19 Vaccine (3 - season) 2024, 11/23/2020 OSTEOPOROSIS SCREENING Completed 01/10/2024, 2019 Procedures Procedure Name Priority Date/Time Associated Diagnosis Comments XR CHEST LAT 1 VW Routine 10/24/2024 1:0 7 PM PATTERN ASSEMBLER BASIC METABOLIC PANEL Routine 09/15/2024 1:[address] CHEST WO CONTRAST Routine 09/15/2024 11:20 AM PATTERN ASSEMBLER XR DEXA BONE DENSITY AXIAL 1 OR MORE SITES Routine 12/17/2019 Osteoporosis, unspecified osteoporosis type, unspecified pathological fracture presence from Last 3 Months or Most Recently Relevant to Health Maintenance Results * XR CHEST LAT 1 VW (10/24/2024 1:07 PM PATTERN ASSEMBLER) Anatomical Region Laterality Modality Chest Other us Tylor Jaeger MD DIAGNOSTIC IMAGING ORDERABLES F inal Result * BASIC METABOLIC PANEL (09/15/2024 1:30 PM PATTERN ASSEMBLER) Blood us Tylor Jaeger MD CHEMISTRY ORDERABLES Final Resu lt * CT CHEST WO CONTRAST (09/15/2024 11:20 AM PATTERN ASSEMBLER) Anatomical Region Laterality Modality Chest Computed Tomogra phy us Tylor Jaeger MD CT ORDERABLES Final Result * XR DEXA BONE DENSITY AXIAL 1 OR MORE SITES (12/17/2019) Anatomical Region Laterality Modality Other us Tylor Jaeger MD DIAGNOSTIC IMAGING ORDERABLES F inal Result from Last 3 Months or Most Recently Relevant to Health Maintenance Insurance MEDICARE PART A AND B AET MEDICARE SUPP AESSI MEDICARE PART A AND B AET MEDICARE SUPP AESSI
--- OUTSIDE RECORDS SUMMARY | 2024-12-02 06:54 | XMS_ITS | Clinical Summary ---
Author Organization [facility] Address [address] [place] [address] Care Team Providers Care Marketing Automation Specialist Name Role Phone Prabha Dotson PA-C Primary Care Provider [phone] Allergies Active Allergy Reactions Criticality Noted Date Comments Shellfish-Derived Products Anaphylaxis High 04/03/20 21 Medications sertraline (ZOLOFT) 100 MG tablet Take 1 tablet (100 mg total) by mouth daily. Active nirmatrelvir & ritonavir 300/100 (PAXLOVID, 300/100,) 20 x 150 MG & 10 x 100MG tablet pack Take TWO nirmatrelvir 150 mg tablet(s) along with ONE ritonavir 100 mg tablet, with all three tablets taken together, twice daily for 5 days. May take with or without food. Swallow tablets whole. Do not chew, break or crush.. 30 tablet 3 Active HYDROcodone-tess taminophen (NORCO) 5-325 MG tabletIndicatio ns:Acute Pain < 3 Day Supply Take 1 tablet by mouth every 6 (six) hours as needed for Pain. Indications: Acute Pain < 3 Day Supply 10 tablet 4 Active Encounters Date Type Department Care Team Description 10/05/2024 2:00 PM LAND CLASSIFIER - 10/05/2024 3:[address] [facility] Emergency [facility] Emergency Room [id number] [place] [address] Alvaro Gonzales MD URI Discharge Disposition: Home or Self Care (Routine Discharge) 10/05/2024 Travel from Last 3 Months Immunizations Name Administration Dates Next Due MODERNA COVID-19 (12+) MRNA, LNP-S, PF, 100 MCG/ 0.5 ML DOSE 12/21/2020,11/23/2020 Social History Tobacco Use Types Packs/Day Years Used Date Smoking Tobacco: Never Smokeless Tobacco: Never Tobacco Cessation:Counseling Given: Not Answered Alcohol Use Standard Drinks/Week Comments Never 0 (1 standard drink = 0.6 oz pur e alcohol) Comments No Sex and Gender Information Value Date Recorded Sex Assigned at Not on file Legal Sex Female 7:40 PM CDT Gender Identity Not on file Sexual Orientation Not on file Last Filed Vital Signs Vital Sign Reading Time Taken Comments Blood Pressure 160/66 10/05/2024 3:19 PM LAND CLASSIFIER Pulse 70 10/05/2024 3:19 PM LAND CLASSIFIER Temperature 37.2 C (98.9 F) 10/05/2024 3:19 PM LAND CLASSIFIER Respiratory Rate 18 10/05/2024 3:19 PM LAND CLASSIFIER Oxygen Saturation 99% 10/05/2024 3:19 PM LAND CLASSIFIER Inhaled Oxygen Concentration - - Weight 101 kg (222 lb 10.6 oz) 10/05/2024 2:06 P M LAND CLASSIFIER Height 157.5 cm (5' 2 ) 10/05/2024 2:06 PM LAND CLASSIFIER Body Mass Index 40.73 10/05/2024 2:06 PM LAND CLASSIFIER Plan of Treatment Health Maintenance Due Date Last Done Comments Colorectal Cancer Screening Colonoscopy (10 Years) 1955 Hepatitis C 1973 DTaP, Tdap and Td Vaccines ( 1 - Tdap) 1974 Mammogram Screening 1995 Zoster Vaccines (1 of 2) 2005 RSV Immunization or 60+ Years (1 - Risk 60-74 years 1-dose series) 2015 Annual Medicare Wellness Visit 2020 Pneumococcal Vaccine: 65+ Years (1 of 1 - PCV) 2020 COVID-19 Vaccine (3 - 2023-2 5 season) 2024 12/21/2020, 11/23/2020 Influenza Adult (#1) 2024 Dexa Scan (General) Completed 12/17/2019, 12/17/2019 Meningococcal B Vaccine Aged Out No l onger eligible based on patient's age to complete this topic Meningococcal Vaccine Aged Out No victor hugo farhad eligible based on patient's age to complete this topic RSV Immunizations Under 20 Months Aged Out No longer eligible b ased on patient's age to complete this topic Procedures Procedure Name Priority Date/Time Associated Diagnosis Comments XR CHEST PORTABLE STAT 10/05/2024 2:3 8 PM LAND CLASSIFIER INFLUENZA A & B STAT 10/05/2024 2:10 PM LAND CLASSIFIER CORONAVIRUS (COVID 19) STAT 10/05/2024 2:10 PM LAND CLASSIFIER from Last 3 Months Results * XR CHEST PORTABLE (10/05/2024 2:38 PM LAND CLASSIFIER) Anatomical Region Laterality Modality Chest Radiographic Carito ging 10/05/2024 2:40 PM LAND CLASSIFIER Impressions 10/05/2024 2:43 PM LAND CLASSIFIER IMPRESSION: There is a small nodular opacity in the left upper lung as described. A CT chest is recommended for further evaluation. Referred By: Interpreted By: Gerry Dalton MD, 10/05/2024 2:40 PM Narrative 10/05/2024 2:43 PM LAND CLASSIFIER [address] [place] [address] Examination: XR CHEST PORTABLE Exam time: 10/05/2024 2:11 PM Indication: Cough and fatigue Comparison: Chest 09/02/2015 Findings: Upright AP view of the chest was obtained. The heart size is upper limits of normal/mildly enlarged. No vascular congestion. There is a 7 mm nodular opacity in the left upper lung projected between the second and third anterior ribs. No pleural effusion or pneumothorax. Procedure Note Gerry Dalton MD - 10/05/[address] [place] [address] Examination: XR CHEST PORTABLE Exam time: 10/05/2024 2:11 PM Indication: Cough and fatigue Comparison: Chest 09/02/2015 Findings: Upright AP view of the chest was obtained. The heart size isupper limits of normal/mildly enlarged. No vascular congestion. There [place] 7 mm nodular opacity in the left upper lung projected between the secondand third anterior ribs. No pleural effusion or pneumothorax. IMPRESSION: There is a small nodular opacity in the left upper lung asdescribed. A CT chest is recommended for further evaluation. Referred By: Interpreted By: Gerry Dalton MD, 10/05/2024 2:40 PM Alvaro Gonzales MD GENERAL IMAGING Final Result * CORONAVIRUS (COVID-19) MOLECULAR (10/05/2024 2:10 PM LAND CLASSIFIER) CORONAVIRUS SARS COV 2 RNA NEGATIVE NEGATIVE 10/05/2024 2:42 PM LAND CLASSIFIER [facility] Comment: NEGATIVE RESULTS DO NOT RULE OUT COVID 19 AND SHOULD NOT BE USED THE SOLE BASIS FOR TREATMENT OR PATIENT MANAGEMENT DECISIONS, INCLUDING INFECTION CONTROL DECISIONS. NEGATIVE RESULTS SHOULD BE CONSIDERED IN THE CONTEXT OF A PATIENT'S RECENT EXPOSURES, HISTORY AND THE PRESENCE OF CLINICAL SIGNS AND SYMPTOMS CONSISTENT WITH COVID 19. THE ID NOW COVID-19 2.0 TEST HAS BEEN AUTHORIZED BY THE FDA UNDER EAU FOR USE BY AUTHORIZED LABORATORIES. PERFORMED BY NUCLEIC ACID AMPLIFICATION FOR MOLECULAR QUALITATIVE DETECTION OF SARS-COV-2. SPECIMEN TYPE NASAL 10/05/2024 2:11 PM LAND CLASSIFIER [facility] NASOPHARYNGEAL SWAB / Unknown 10/05/2024 2:10 PM LAND CLASSIFIER Alvaro Gonzales MD MICROBIOLOGY - GENERAL ORDERABLE S Final Result [facility] [address] [place] [address], [place] [phone] * INFLUENZA A & B (10/05/2024 2:10 PM LAND CLASSIFIER) SPECIMEN TYPE NASOPHARYNGEAL SWAB 10/05/2024 2:18 PM LAND CLASSIFIER [facility] INFLUENZA A NEGATIVE NEGATIVE 10/05/2024 2:39 PM LAND CLASSIFIER [facility] INFLUENZA B NEGATIVE NEGATIVE 10/05/2024 2:39 PM LAND CLASSIFIER [facility] NASOPHARYNGEAL SWAB / Unknown 10/05/2024 2:10 PM LAND CLASSIFIER us Alvaro Gonzales MD MICROBIOLOGY - GENERAL ORDERABLE S Final Result [facility] [address] [place] [address], [place] [phone] from Last 3 Months Insurance MEDICARE AETNA Care Teams Marketing Automation Specialist Relationship Specialty Start Date End Date Prabha Dotson PA-C [address] [place], [place] [address] [place], [place] [id number] PCP - General PHYSICIAN SOFTWARE APPLICATIONS SPECIALIST 08/08/23
--- OUTSIDE RECORDS SUMMARY | 2024-12-02 06:54 | XMS_ITS | Encounter Summary ---
Author Organization [facility] Address [facility] [place] [address] Care Team Providers Care Gut Dropper Name Role Phone Mario Alberto Murray MD Primary Care Provider [phone] Prabha Dotson PA-C Primary Care Provider [phone] Encounter Details Date Type Department Care Team (Late st Contact Info) Description 11/30/2015 Abstract [facility] CONVERSION [address] [place] [address] , Generic Conversion, Social History Tobacco Use Types Packs/Day Years Used Date Smoking Tobacco: Never Assessed Comments Unknown Sex and Gender Information Value Date Recorded Sex Assigned at Not on file Legal Sex Female 7:40 PM CDT Gender Identity Not on file Sexual Orientation Not on file documented as of this encounter Plan of Treatment Not on file documented as of this encounter Visit Diagnoses Not on filedocumented in this encounter Additional Health Concerns Infection Onset Date Last Indicated Resolved Time COVID-19 Rule Out 10/03/2021 10/03/2021 10/03/2021 10:02 PM DIRECTOR PERSONAL COVID-19 Confirmed 10/03/2021 10/03/2021 12:32 AM DIRECTOR PERSONAL COVID-19 Rule Out 08/08/2023 08/08/2023 08/08/2023 10:12 AM DIRECTOR PERSONAL COVID-19 Confirmed 08/08/2023 08/08/2023 12:32 AM DIRECTOR PERSONAL COVID-19 Rule Out 10/05/2024 10/05/2024 10/05/2024 2:42 PM DIRECTOR PERSONAL documented as of this encounter Care Teams Gut Dropper Relationship Specialty Start Date End Date Mario Alberto Murray MD PCP - General INTERNAL MEDICINE 04/03/21 08/07/23 Prabha Dotson PA-C [address] [place] [address] [address] [place] [address] PCP - General PHYSICIAN TONNAGE COMPILATION CLERK 08/08/23 documented as of this encounter
--- OUTSIDE RECORDS SUMMARY | 2024-12-02 06:54 | XMS_ITS | Encounter Summary ---
Author Organization [facility] Address [address] [place] [address] Care Team Providers Care Aircraft Assembler Name Role Phone Unavailable Primary Care Provider Unavailabl e Encounter Details Date Type Department Care Team (Late Contact Info) Description 11/26/2024 Orders Only [facility] Oncology and Hematology [facility] [address] [place] [address] Tylor Jaeger MD [address] [place] [address] Social History Tobacco Use Types Packs/Day Years Used Date Smoking Tobacco: Never Alcohol Use Standard Drinks/Week Comments Yes 7 (1 standard drink = 0.6 oz pur e alcohol) a night weekly Comments No Sex and Gender Information Value Date Recorded Sex Assigned at Not on file Legal Sex Female 8:31 AM TALENT ACQUISITION RELATIONSHIP MANAGER Gender Identity Not on file Sexual Orientation Not on file documented as of this encounter Plan of Treatment Upcoming Encounters Date Type Department Care Team (Late Contact Info) Description 12/11/2024 4:30 PM CDT Telephone Check Up [facility] Oncology [facility] Hematology [facility] [address] [place] [address] Tylor Jaeger MD [address] [place] [address] 09/18/2025 8:30 AM TALENT ACQUISITION RELATIONSHIP MANAGER Office Visit [facility] Oncology and Hematology - [place] [address] [facility] [address] [place] [address] Tylor Jaeger MD [address] [facility] [address] [place] [address] documented as of this encounter Procedures Procedure Name Priority Date/Time Associated Diagnosis Comments XR CHEST LAT 1 VW Routine 10/24/2024 1:07 PM TALENT ACQUISITION RELATIONSHIP MANAGER documented in this encounter Results * XR CHEST LAT 1 VW (10/24/2024 1:07 PM TALENT ACQUISITION RELATIONSHIP MANAGER) Anatomical Region Laterality Modality Chest Other Tylor Jageer MD DIAGNOSTIC IMAGING ORDERABLES F inal Result documented in this encounter Visit Diagnoses Not on filedocumented in this encounter
== END 2024-12-02 06:51 | disposition home or self-care (01) ==
PROVIDERS: PCP Physician Assistant Medical; Visit Provider Internal Medicine Hematology & Oncology
DX: R91.1 Solitary pulmonary nodule (principal); R91.8 Other nonspecific abnormal finding of lung field
CPT/HCPCS: 71250

== ENCOUNTER 2025-03-12 08:35 | Observation (INO) | payer MEDICARE, SELFPAY ==
[2025-03-12] VITALS (15 sets, daily range): BP systolic 118–156; BP diastolic 60–74; PULSE 94–119; RESP 16–22; TEMP 36.4–36.6; O2SAT 96–99; BMI 46.4
--- NOTE | ~2025-03-12 | XR_ITS ---
EXAMINATION: XR chest 1V portable DATE: 03/12/2025 08:57 INDICATION: Cough and congestion TECHNIQUE: frontal view of the chest was obtained. COMPARISON: Chest CT dated 12/02/2024 FINDINGS: Again seen is a calcified left upper lobe nodule consistent with old granulomatous disease. No other airspace opacities, pulmonary edema, pleural effusion or pneumothorax. The cardiomediastinal silhouet te is normal. IMPRESSION: 1. Left upper lobe calcite granulomas. No acute cardiopulmonary disease. Reviewed, dictated and finalized at location A.
--- OUTSIDE RECORDS SUMMARY | 2025-03-12 08:38 | XMS_ITS | Encounter Summary ---
Author Organization [facility] Address [facility] [place] [address] Care Team Providers Care Revenue Investigator Name Role Phone Mario Alberto Murray MD Primary Care Provider [phone] Prabha Dotson PA-C Primary Care Provider [phone] Encounter Details Date Type Department Care Team (Late st Contact Info) Description 11/30/2015 Abstract [facility] CONVERSION [address] [place] [address] , Generic Conversion, Social History Tobacco Use [...] Rule Out 10/03/2021 10/03/2021 10/03/2021 10:02 PM AREA OPERATIONS DIRECTOR COVID-19 Confirmed 10/03/2021 10/03/2021 12:32 AM AREA OPERATIONS DIRECTOR COVID-19 Rule Out 08/08/2023 08/08/2023 08/08/2023 10:12 AM AREA OPERATIONS DIRECTOR COVID-19 Confirmed 08/08/2023 08/08/2023 12:32 AM AREA OPERATIONS DIRECTOR COVID-19 Rule Out 10/05/2024 10/05/2024 10/05/2024 2:42 PM AREA OPERATIONS DIRECTOR documented as of this encounter Care Teams Revenue Investigator Relationship Specialty Start Date End Date Mario Alberto Murray MD PCP - General INTERNAL MEDICINE 04/03/21 08/07/23 Prabha Dotson PA-C [address] [place] [address] [address] [place] [address] PCP - General PHYSICIAN SOLE SEAMER 08/08/23 documented as of this encounter
--- OUTSIDE RECORDS SUMMARY | 2025-03-12 08:38 | XMS_ITS | Clinical Summary ---
Author Organization [facility] Address [address] [place] [address] Care Team Providers Care Legal Practice Manager Name Role Phone Prabha Dotson PA-C Primary Care Provider [phone] Allergies Active Allergy Reactions Criticality Noted Date [...] 3 Day Supply 10 tablet 4 Active Immunizations Immunization Administration Dates Next Due MODERNA COVID-19 (12+) [...] Comments Blood Pressure 160/66 10/05/2024 3:19 PM NICKING MACHINE OPERATOR Pulse 70 10/05/2024 3:19 PM NICKING MACHINE OPERATOR Temperature 37.2 C (98.9 F) 10/05/2024 3:19 PM NICKING MACHINE OPERATOR Respiratory Rate 18 10/05/2024 3:19 PM NICKING MACHINE OPERATOR Oxygen Saturation 99% 10/05/2024 3:19 PM NICKING MACHINE OPERATOR Inhaled Oxygen Concentration - - Weight 101 kg (222 lb 10.6 oz) 10/05/2024 2:06 P M NICKING MACHINE OPERATOR Height 157.5 cm (5' 2) 10/05/2024 2:06 PM NICKING MACHINE OPERATOR Body Mass Index 40.73 10/05/2024 2:06 PM NICKING MACHINE OPERATOR Plan of Treatment Health Maintenance Due Date Last Done Comments Colorectal Cancer Screening Colonoscopy (10 Years) 1955 Hepatitis C 1973 DTaP, Tdap and Td Vaccines ( 1 - Tdap) 1974 Mammogram Screening 1995 Pneumococcal Vaccine: 50+ Years (1 of 1 - PCV) 2005 Zoster Vaccines (1 of 2) 2005 RSV Immunization or 60+ Years (1 - Risk 60-74 years 1-dose series) 2015 Annual Medicare Wellness Visit 2020 COVID-19 Vaccine (3 - 2023-2 5 season) 2024 12/21/2020, 11/23/2020 Dexa Scan (General) Completed 12/17/2019, 12/17/2019 Meningococcal B Vaccine Aged Out No l onger eligible based on patient's age to complete this topic Meningococcal Vaccine Aged Out No victor hugo farhad eligible based on patient's age to complete this topic RSV Immunizations Under 20 Months Aged Out No longer eligible b ased on patient's age to complete this topic Insurance AET Care Teams Legal Practice Manager Relationship Specialty Start Date End Date Prabha Dotson PA-C [address] [place] [address] [address] [place] [address] PCP - General PHYSICIAN ROCK DRILL OPERATOR 08/08/23
--- OUTSIDE RECORDS SUMMARY | 2025-03-12 08:38 | XMS_ITS | Clinical Summary ---
Author Organization [facility] JORGE GAYLE MD Address [address] [place] [address] Care Team Providers Care Underwriter Solicitation Director Name Role Phone Unavailable Primary Care Provider [...] Encounters Date Type Department Care Team Description 01/21/2025 External Device Data STL ABSTRACTION Provider, Abstract 01/20/2025 External Device Data STL ABSTRACTION Provider, Abstract 12/11/2024 4:30 PM CDT Telephone Check Up [facility] ([facility] Oncology and Hematology - [place] [address] [place] [address] Tylor Jaeger MD from Last 3 Months Family History Medical [...] on file Legal Sex Female 8:31 AM CREATIVE CONSULTANT Gender Identity Not on file Sexual Orientation Not on file Last Filed Vital Signs Vital Sign Reading Time Taken Comments Blood Pressure 132/70 09/15/2024 11:43 AM CREATIVE CONSULTANT Pulse 99 09/15/2024 11:43 AM CREATIVE CONSULTANT Temperature 36.7 C (98 F) 09/15/2024 11:43 AM CREATIVE CONSULTANT Respiratory Rate 16 09/15/2024 11:4 3 AM CREATIVE CONSULTANT Oxygen Saturation 96% 09/15/2024 11: 43 AM CREATIVE CONSULTANT Inhaled Oxygen Concentration - - Weight 103.8 kg (228 lb 12.8 oz) 2024 11:43 AM CREATIVE CONSULTANT Height 157.5 cm (5' 2) 06/07/2022 9:52 AM CDT Body Mass Index 41.85 06/07/2022 9:52 AM CDT Plan of Treatment Upcoming Encounters Date Type Department Care Team (Late st Contact Info) Description 09/18/2025 8:30 AM CREATIVE CONSULTANT Office Visit [facility] ([facility] Oncology and Hematology - [place] [address] [place] [address] Tylor Jaeger MD [address] [place] [address] Health Maintenance Due Date Last Done Comments Pre-Diabetes and Diabetes Screening 1955 DTAP/TDAP/TD VACCINES (1 - Tdap) 1974 BREAST CANCER SCREENING 1995 COLORECTAL SCREENING 2000 Colorectal Cancer Screening 2000 FIT-DNA Q 3 years 2000 FIT/FOBT Q 1 year 2000 Flex Sig/CT Colonography Q 5 years 2000 PNEUMOCOCCAL VACCINE 50+ YEA RS (1 of 1 - PCV) 2005 ZOSTER VACCINE (1 of 2) 2005 RSV VACCINE (60+ or ) (1 - Risk 60-74 years 1-dose series) 2015 COVID-19 Vaccine (3 - 2023- season) 2024, 11/23/2020 INFLUENZA VACCINE (#1) 2025 OSTEOPOROSIS SCREENING 01/09/2029 01/10/2024, 2019 Procedures Procedure Name Priority Date/Time Associated Diagnosis Comments XR DEXA BONE DENSITY AXIAL 1 OR MORE SITES Routine 12/17/2019 Osteoporosis, unspecified osteoporosis type, unspecified pathological fracture presence from Last 3 Months or Most Recently Relevant to Health Maintenance Results * XR DEXA BONE DENSITY AXIAL 1 OR MORE SITES (12/17/2019) Anatomical Region Laterality Modality Other Tylor Jaeger MD DIAGNOSTIC IMAGING ORDERABLES F inal Result from Last 3 Months or Most Recently Relevant to Health Maintenance Insurance MEDICARE PART A AND B AETNA MEDICARE SUPP AESSI MEDICARE PART A AND B AETNA MEDICARE SUPP AESSI
--- NOTE | 2025-03-12 08:48 | PC.NURSE ---
covid swab sent to lab
[2025-03-12] MEDS: SODIUM CHLORIDE 0.9% IV 1,000 ML 999 ML IV CONT (08:50)
[2025-03-12 09:03] LABS: Hematocrit 29.0 % (35.0-42.0); Hemoglobin 9.2 g/dL (11.7-13.8); Immature Granulocyte Percent A 0.6 % (0.0-0.0); Lymphocytes Absolute Auto 2.68 K/mm3 (1.10-4.50); Mean Corpuscular HGB Conc 31.7 g/dL (32-36); Mean Corpuscular Hemoglobin 29.9 pg (27.0-31.0); Mean Corpuscular Volume 94.2 fL (78.0-102.0); Nucleated Red Blood Cells Absolute Auto 0.00 K/mm3 (0.00-0.00); Nucleated Red Blood Cells Perc 0.0 % (0-0.0); Platelet Count Result 256 K/mm3 (150-420); Red Blood Count 3.08 M/mm3 (4.20-5.40); White Blood Count 8.8 K/mm3 (4.8-10.8)
[2025-03-12 09:15] LABS: Alanine Aminotransferase 44 U/L (6-35); Albumin Level 3.0 g/dL (3.5-5.1); Alkaline Phosphatase 91 U/L (38-126); Anion Gap 4 mmol/L (4-12); Aspartate Amino Transferase 35 U/L (14-36); Bilirubin,Total 1.4 mg/dL (0.2-1.3); Blood Urea Nitrogen 8 mg/dL (7-17); Calcium 7.8 mg/dL (8.4-10.2); Carbon Dioxide 28 mmol/L (22-30); Chloride 102 mmol/L (98-107); Estimated CRCL calculation 87 ml/min; Estimated Glomerular Filt Rate > 60; Glucose 129 mg/dL (65-110); Osmolality Calculated 278 mOsm/kg (285-295); Sodium 134 mmol/L (137-145); Total Protein 5.9 g/dL (6.3-8.2)
[2025-03-12 09:21] LABS: Potassium 2.7 mmol/L (3.4-5.0)
--- OUTSIDE RECORDS SUMMARY | 2025-03-12 09:36 | XMS_ITS | Clinical Summary ---
Author Organization [facility] JORGE GAYLE [place] Address [address] [place] [address] Care Team Providers Care Marketing Project Lead Name Role Phone Unavailable Primary Care Provider [...] 12/11/2024 4:30 PM CDT Telephone Check Up [facility] Oncology and Hematology - [place] [address] [place] [address] Tylor Jaeger MD from Last [...] on file Legal Sex Female 8:31 AM CITRIX SYSTEMS ADMINISTRATOR Gender Identity Not on file Sexual Orientation Not on file Last Filed Vital Signs Vital Sign Reading Time Taken Comments Blood Pressure 132/70 09/15/2024 11:43 AM CITRIX SYSTEMS ADMINISTRATOR Pulse 99 09/15/2024 11:43 AM CITRIX SYSTEMS ADMINISTRATOR Temperature 36.7 C (98 F) 09/15/2024 11:43 AM CITRIX SYSTEMS ADMINISTRATOR Respiratory Rate 16 09/15/2024 11:4 3 AM CITRIX SYSTEMS ADMINISTRATOR Oxygen Saturation 96% 09/15/2024 11: 43 AM CITRIX SYSTEMS ADMINISTRATOR Inhaled Oxygen Concentration - - Weight 103.8 kg (228 lb 12.8 oz) 2024 11:43 AM CITRIX SYSTEMS ADMINISTRATOR Height 157.5 cm (5' 2) 06/07/2022 9:52 AM CDT Body Mass Index 41.85 06/07/2022 9:52 AM CDT Plan of Treatment Upcoming Encounters Date Type Department Care Team (Late st Contact Info) Description 09/18/2025 8:30 AM CITRIX SYSTEMS ADMINISTRATOR Office Visit [facility] Oncology and Hematology - [place] [address] [place] [address] Tylor Jaeger MD [address] [facility] [address] [place] [address] Health Maintenance Due Date Last [...]
--- OUTSIDE RECORDS SUMMARY | 2025-03-12 09:36 | XMS_ITS | Clinical Summary ---
Author Organization [facility] Address [address] [place] [address] Care Team Providers Care Inoculator Name Role Phone Prabha Dotson PA-C Primary Care Provider [phone]- [phone] Allergies Active Allergy Reactions Criticality Noted Date [...] Comments Blood Pressure 160/66 10/05/2024 3:19 PM SKULL GRINDER Pulse 70 10/05/2024 3:19 PM SKULL GRINDER Temperature 37.2 C (98.9 F) 10/05/2024 3:19 PM SKULL GRINDER Respiratory Rate 18 10/05/2024 3:19 PM SKULL GRINDER Oxygen Saturation 99% 10/05/2024 3:19 PM SKULL GRINDER Inhaled Oxygen Concentration - - Weight 101 kg (222 lb 10.6 oz) 10/05/2024 2:06 P M SKULL GRINDER Height 157.5 cm (5' 2) 10/05/2024 2:06 PM SKULL GRINDER Body Mass Index 40.73 10/05/2024 2:06 PM SKULL GRINDER Plan of Treatment Health Maintenance Due Date [...] complete this topic Insurance AET Care Teams Inoculator Relationship Specialty Start Date End Date Prabha Dotson PA-C [address] [place] [address] [address] [place] [address] PCP - General PHYSICIAN WOOD ROOM HAND 08/08/23
--- OUTSIDE RECORDS SUMMARY | 2025-03-12 09:36 | XMS_ITS | Encounter Summary ---
Author Organization [facility] Address [facility] [place] [address] Care Team Providers Care Distribution System Operator Name Role Phone Mario Alberto Murray MD Primary Care Provider [phone] Prabha Dotson PA-C Primary Care Provider [phone]- [phone] Encounter Details Date Type Department Care Team (Late st Contact Info) Description 11/30/2015 Abstract [facility] CONVERSION [address] [place] [address] , Generic Conversion, Social History Tobacco Use [...] Rule Out 10/03/2021 10/03/2021 10/03/2021 10:02 PM ABSTRACT MAKER COVID-19 Confirmed 10/03/2021 10/03/2021 12:32 AM ABSTRACT MAKER COVID-19 Rule Out 08/08/2023 08/08/2023 08/08/2023 10:12 AM ABSTRACT MAKER COVID-19 Confirmed 08/08/2023 08/08/2023 12:32 AM ABSTRACT MAKER COVID-19 Rule Out 10/05/2024 10/05/2024 10/05/2024 2:42 PM ABSTRACT MAKER documented as of this encounter Care Teams Distribution System Operator Relationship Specialty Start Date End Date Mario Alberto Murray MD PCP - General INTERNAL MEDICINE 04/03/21 08/07/23 Prabha Dotson PA-C [address] [place] [address] [address] [place] [address] PCP - General PHYSICIAN LABOR ARBITRATOR 08/08/23 documented as of this encounter
--- NOTE | 2025-03-12 09:37 | ECG_ITS ---
Test Date: 2025-03-12 09:51:59 Measurements Intervals Odin Rate: 101 P: 29 ID: 164 QRS: 38 QRSD: 89 T: 48 QT: 362 QTc: 471 Interpretive Statements SINUS TACHYCARDIA NONSPECIFIC T-WAVE ABNORMALITY ABNORMAL RHYTHM ECG No previous ECG available for comparison Electronically Signed On 03-12-2025 13:03:09 CDT by Virgil Grewal M.D.
[2025-03-12 09:39] LABS: Influenza A QL RT-PCR Negative (Negative); Influenza B QL RT-PCR Negative (Negative); RSV RNA, RT-PCR Negative (Negative); SARS-CoV-2 RNA PCR Negative (Negative)
[2025-03-12] MEDS: KCL 20 MEQ/SW 100 ML 100 ML 50 MEQ IVPB ×2 (09:42→13:04)
[2025-03-12] MEDS: POTASSIUM BICARBONATE 25 MEQ TABEF 50 MEQ PO (09:43)
[2025-03-12] MEDS: SODIUM CHLORIDE 0.9% IV 500 ML 200 ML IV CONT (09:47)
--- NOTE | 2025-03-12 10:41 | ED.URI ---
HPI - URI/Sore Throat General Chief Complaint: Upper Respiratory Infection Stated Complaint: cough Time Seen by Provider: 03/12/25 08:42 Source: patient Mode of arrival: ambulatory Limitations: no limitations History of Present Illness HPI Narrative: this is a 69-year-old female with history of COPD hypertension and history of MDS presents with a one-week history of cough and has been having some nausea and a sense of being dehydrated. Her primary care physician recommended that she come to the emergency room for evaluation. Currently has a nonproductive cough with no shortness of breath no audible wheezing no chest pain no abdominal pain has felt nauseated but currently no nausea. No fever chills no abdominal pain no dysuria or hematuria no flank pain. MD elicited complaint: cough Onset (ago): week(s) Description of mucous: clear Able to tolerate fluids by mouth: Yes Related Data Home Medications ?Medication ?Instructions ?Recorded ?Confirmed ?Last Taken ?Type lvyyaixlfzrd-fgttbjhi-nyspw acid 1 cap PO DAILY 07/05/20 03/05/25 Unknown History 400 mcg-vitamin K 80 mcg capsule (Multi For Her 50 Plus) aspirin 81 mg tablet,delayed 81 mg PO DAILY 11/22/20 03/05/25 Unknown History release Allergies Allergy/AdvReac Type Severity Reaction Status Date / Time iodine Allergy Intermediate SWELLING Verified 03/12/25 08:39 Sulfa (Sulfonamide Allergy Intermediate hives Verified 03/12/25 08:39 Antibiotics) shellfish derived Allergy Mild Swelling Verified 03/12/25 08:39 of Lip/Tongue/Throat amlodipine AdvReac Other Verified 03/12/25 08:39 Review of Systems Review of Systems: All systems reviewed & are unremarkable except as noted in HPI and below PMFSH Past Medical History Medical History Osteoporosis Hepatic steatosis Depression Arthritis Hyperglycemia Arthritis of finger of left hand Trigger finger, left little finger Surgical History Surgical History History of elbow surgery ORIF History of tonsillectomy History of total hysterectomy with bilateral salpingo-oophorectomy (BSO) History of cholecystectomy Family History Family History Sibling Diabetes mellitus Malignant neoplasm of prostate Mother Family history of suicide Father Family history of Alzheimer's disease Social History Social History Social History: 02/26/25 somewhat confident with medical forms Smoking status: Never smoker Second hand tobacco smoke exposure: No Alcohol intake: never Substance use: never Substance use type: does not use Do You Feel Safe in your Home?: Yes Lack of Transportation: No Lack of Food: Never True Current Housing: I Have Housing Concerned About Future Housing: No Difficulty Paying Gas/Electric Bills: No Difficulty Paying for Meds: No Currently Unemployed: No Education: Trade/Vocational Certificate Difficulty w/ Childcare or Family Care: No Living arrangements: with family Occupation/Education: retired Gender identity (if verbalized by the patient): Female Sexual Orientation (if Verbalized by the Patient): Straight or Heterosexual Exam Const: General: healthy appearing and no acute distress Nutritional Appearance: well nourished Orientation/consciousness: patient oriented x3 Limitations: no limitations Neck: Neck: normal visual inspection, no lymphadenopathy and no meningeal signs Chest: Chest palpation & inspection: normal inspection of the chest Resp: Auscultation: clear to auscultation bilaterally Cardio: Rate: regular rate Rhythm: regular rhythm GI: GI Palp: Yes Soft to palpation Auscultation: normal bowel sounds Skin: General skin exam: normal color Rashes: no rashes Wounds: no wounds Neuro: General: patient oriented x3, moves all extremities, no meningeal signs and no focal motor deficits Extrem: General: normal to inspection, no clubbing, cyanosis or edema and no pedal edema Course Course Emergency Course: Patient received IV fluids normal saline and additional IV fluids to run K rider and was given p.o. potassium. Patient with lactic acid of 4.3 potassium level of 2.7, EKG showed no acute abnormalities. Chest x-ray with some chronic granulomatous disease with no acute cardiopulmonary abnormality. Spoke with the hospitals that will accept patient for admission is for observation and telemetry. Vital Signs Vital signs: Vital Signs Temperature 36.4 C 03/12/25 08:37 Pulse Rate 119 H 03/12/25 08:37 Respiratory Rate 16 03/12/25 08:37 Blood Pressure 138/63 03/12/25 08:37 Pulse Oximetry 97 03/12/25 08:37 Oxygen Delivery Room Air 03/12/25 08:37 Temperature 36.4 C 03/12/25 08:37 Pulse Rate 119 H 03/12/25 08:37 Respiratory Rate 16 03/12/25 08:37 Blood Pressure 138/63 03/12/25 08:37 Pulse Oximetry 96 03/12/25 08:43 Oxygen Delivery Autopap 03/12/25 08:43 MDM - URI/Sore Throat Lab Data 03/12/25 08:59 03/12/25 08:59 Labs: Lab Results 03/12/25 03/12/25 Range/Units 08:59 09:01 WBC 8.8 (4.8-10.8) K/mm3 RBC 3.08 L (4.20-5.40) M/mm3 Hgb 9.2 L (11.7-13.8) g/dL Hct 29.0 L (35.0-42.0) % MCV 94.2 (78.0-102.0) fL MCH 29.9 (27.0-31.0) pg MCHC 31.7 L (32-36) g/dL RDW 17.5 H (11.6-14.4) % Plt Count 256 (150-420) K/mm3 MPV 9.3 (9.2-11.8) fl Immature Gran % (Auto) 0.6 H (0.0-0.0) % Neut % (Auto) 56.0 (50.0-70.0) % Lymph % (Auto) 30.4 (18.0-42.0) % [place] % (Auto) 6.5 (2.0-11.0) % Eos % (Auto) 6.0 (1.0-6.0) % Baso % (Auto) 0.5 (0.0-1.0) % Lymph # (Auto) 2.68 (1.10-4.50) K/mm3 [place] # (Auto) 0.57 (0.10-0.90) K/mm3 Eos # (Auto) 0.53 H (0.02-0.50) K/mm3 Baso # (Auto) 0.04 (0.00-0.10) K/mm3 Abs Immat Gran (auto) 0.05 H (0.00-0.00) K/mm3 Absolute Neuts (auto) 4.96 (1.70-7.20) K/mm3 Absolute Nucleated RBC 0.00 (0.00-0.00) K/mm3 Nucleated RBC % 0.0 (0-0.0) % Sodium 134 L (137-145) mmol/L Potassium 2.7 L* (3.4-5.0) mmol/L Chloride 102 (98-107) mmol/L Carbon Dioxide 28 (22-30) mmol/L Anion Gap 4 (4-12) mmol/L BUN 8 (7-17) mg/dL Creatinine 0.60 L (0.7-1.0) mg/dL Estim Creat Clear Calc 87 ml/min Estimated GFR > 60 (59 - ) Glucose 129 H (65-110) mg/dL Calculated Osmolality 278 L (285-295) mOsm/kg Lactic Acid 4.3 H (0.4-2.0) mmol/L Calcium 7.8 L (8.4-10.2) mg/dL Total Bilirubin 1.4 H (0.2-1.3) mg/dL AST 35 (14-36) U/L ALT 44 H (6-35) U/L Alkaline Phosphatase 91 (38-126) U/L Total Protein 5.9 L (6.3-8.2) g/dL Albumin 3.0 L (3.5-5.1) g/dL Influenza A (RT-PCR) Negative (Negative) Influenza B (RT-PCR) Negative (Negative) RSV (RT-PCR) Negative (Negative) SARS-CoV-2 RNA (RT-PCR) Negative (Negative) Critical Care Time Critical Care Time Critical Care Time: No Discharge Plan Discharge Clinical Impression: Acute dehydration, Acute hypokalemia Patient Disposition: Home Condition: Guarded Prognosis Instructions: Antibiotic Form Patient Language: Lao Prescriptions: No Action Multi For Her 50 Plus 400-80 mcg Capsule 1 cap PO DAILY aspirin [Aspir-Low] 81 mg Tablet,Delayed Release (Dr/Ec) 81 mg PO DAILY tramadol 50 mg tablet 50 mg PO Q6H PRN (Reason: pain) Qty: 30 0RF sertraline 100 mg tablet 100 mg PO DAILY Qty: 90 1RF montelukast 10 mg tablet 10 mg PO DAILY Qty: 90 1RF losartan 25 mg tablet 25 mg PO DAILY Qty: 90 1RF ibuprofen 800 mg tablet 800 mg PO TID PRN (Reason: pain) Qty: 90 0RF albuterol sulfate 2.5 mg /3 mL (0.083 %) solution for nebulization 2.5 mg inhalation Q6H Qty: 180 0RF albuterol 90 mcg-budesonide 80 mcg/actuation HFA aerosol inhaler 90-80 mcg/actuation HFA aerosol inhaler 0RF celecoxib [Celebrex] 200 mg capsule 200 mg PO BID Qty: 180 0RF benzonatate 100 mg capsule 100 mg PO TID PRN (Reason: cough) Qty: 30 0RF Follow-up/Referrals: Prabha Dotson PA-C [Primary Care Provider] - Time of Disposition: 10:45
--- OUTSIDE RECORDS SUMMARY | 2025-03-12 12:28 | XMS_ITS | Encounter Summary ---
Author Organization [facility] Address [facility] [place] [address] Care Team Providers Care Changeover Operator Name Role Phone Mario Alberto Murray MD Primary Care Provider Prabha Dotson PA-C Primary Care Provider [phone]- [phone] Encounter Details Date Type Department Care Team (Late st Contact Info) Description 11/30/2015 Abstract [facility] CONVERSION [address] [place] [address] , Generic Conversion, Social History Tobacco Use [...] Rule Out 10/03/2021 10/03/2021 10/03/2021 10:02 PM OLIVE PITTER COVID-19 Confirmed 10/03/2021 10/03/2021 12:32 AM OLIVE PITTER COVID-19 Rule Out 08/08/2023 08/08/2023 08/08/2023 10:12 AM OLIVE PITTER COVID-19 Confirmed 08/08/2023 08/08/2023 12:32 AM OLIVE PITTER COVID-19 Rule Out 10/05/2024 10/05/2024 10/05/2024 2:42 PM OLIVE PITTER documented as of this encounter Care Teams Changeover Operator Relationship Specialty Start Date End Date Mario Alberto Murray MD PCP - General INTERNAL MEDICINE 04/03/21 08/07/23 Prabha Dotson PA-C [address] [place] [address] [address] [place] [address] PCP - General PHYSICIAN DIRECT SUPPORT PROFESSIONAL 08/08/23 documented as of this encounter
--- OUTSIDE RECORDS SUMMARY | 2025-03-12 12:28 | XMS_ITS | Clinical Summary ---
Author Organization [facility] Address [address] [place] [address] Care Team Providers Care Wick And Base Assembler Name Role Phone Prabha Dotson PA-C Primary Care Provider +1- [phone] Allergies Active Allergy Reactions Criticality Noted Date [...] Comments Blood Pressure 160/66 10/05/2024 3:19 PM CABLE ENGINEER Pulse 70 10/05/2024 3:19 PM CABLE ENGINEER Temperature 37.2 C (98.9 F) 10/05/2024 3:19 PM CABLE ENGINEER Respiratory Rate 18 10/05/2024 3:19 PM CABLE ENGINEER Oxygen Saturation 99% 10/05/2024 3:19 PM CABLE ENGINEER Inhaled Oxygen Concentration - - Weight 101 kg (222 lb 10.6 oz) 10/05/2024 2:06 P M CABLE ENGINEER Height 157.5 cm (5' 2) 10/05/2024 2:06 PM CABLE ENGINEER Body Mass Index 40.73 10/05/2024 2:06 PM CABLE ENGINEER Plan of Treatment Health Maintenance Due Date [...] complete this topic Insurance AET Care Teams Wick And Base Assembler Relationship Specialty Start Date End Date Prabha Dotson PA-C [address] [place] [address] [address] [place] [address] PCP - General PHYSICIAN COIL CONNECTOR 08/08/23
--- OUTSIDE RECORDS SUMMARY | 2025-03-12 12:28 | XMS_ITS | Clinical Summary ---
Author Organization [facility] JORGE GAYLE [place] Address [address] [place] [address] Care Team Providers Care Channel Rougher Name Role Phone Unavailable Primary Care Provider [...] 12/11/2024 4:30 PM CDT Telephone Check Up [facility] Oncology and Hematology - [place] [address] [place] [address] Tylor Jaeger MD from Last [...] on file Legal Sex Female 8:31 AM SEWING MACHINE REPAIRER Gender Identity Not on file Sexual Orientation Not on file Last Filed Vital Signs Vital Sign Reading Time Taken Comments Blood Pressure 132/70 09/15/2024 11:43 AM SEWING MACHINE REPAIRER Pulse 99 09/15/2024 11:43 AM SEWING MACHINE REPAIRER Temperature 36.7 C (98 F) 09/15/2024 11:43 AM SEWING MACHINE REPAIRER Respiratory Rate 16 09/15/2024 11:4 3 AM SEWING MACHINE REPAIRER Oxygen Saturation 96% 09/15/2024 11: 43 AM SEWING MACHINE REPAIRER Inhaled Oxygen Concentration - - Weight 103.8 kg (228 lb 12.8 oz) 2024 11:43 AM SEWING MACHINE REPAIRER Height 157.5 cm (5' 2) 06/07/2022 9:52 AM CDT Body Mass Index 41.85 06/07/2022 9:52 AM CDT Plan of Treatment Upcoming Encounters Date Type Department Care Team (Late st Contact Info) Description 09/18/2025 8:30 AM SEWING MACHINE REPAIRER Office Visit [facility] Oncology and Hematology - [place] [address] [place] [address] Tylor Jaeger MD [address] [facility] [address] [place] [address] Health Maintenance Due Date Last [...]
[2025-03-12] MEDS: ALBUTEROL SULFATE NEB 2.5 MG/3 ML INH INHALATION ×2 (12:59→23:04)
[2025-03-12] MEDS: SODIUM CHLORIDE 0.9% IV 1,000 ML 75 ML IV CONT (13:03)
--- NOTE | 2025-03-12 14:06 | ADMGEN ---
9717 This patient, Rosaura Sarmiento, was admitted to 2nd Floor Room 203-1. Patient/family oriented to hospital policies and general routines including ID bracelet, bed and alarms, visiting hours, pain management, procedures, bathroom and other care routines, personal items, smoking policy, room service/diet, and visiting hours. Information on how to activate the Rapid Response Team has been discussed. Patient/Family are encouraged to report perceived risks to care and to ask questions if they do not understand what they are told or what they should do.
[2025-03-12 17:22] LABS: Potassium 3.1 mmol/L (3.4-5.0)
[2025-03-12] MEDS: POTASSIUM CHLORIDE 20 MEQ ER TABLET PO (19:22)
[2025-03-12 19:44] LABS: Magnesium 1.6 mg/dL (1.6-2.3)
--- NOTE | 2025-03-12 20:30 | PC.NURSE ---
Mag results @1.6. Per STUDENT SUCCESS ADVISOR order, no magnesium rider given d/t results being above 1.5.
[2025-03-13] VITALS: BP 116/52; PULSE 94; RESP 17; TEMP 37.7; O2SAT 96
[2025-03-13] MEDS: SODIUM CHLORIDE 0.9% IV 1,000 ML 75 ML IV CONT (01:49)
[2025-03-13] MEDS: IBUPROFEN 400 MG TABLET 800 MG PO (02:04)
[2025-03-13 04:00] VITALS: PULSE 92
[2025-03-13 05:35] VITALS: PULSE 90; RESP 20; O2SAT 97
[2025-03-13] MEDS: ALBUTEROL SULFATE NEB 2.5 MG/3 ML INH INHALATION (05:36)
[2025-03-13 05:45] LABS: Hematocrit 27.8 % (35.0-42.0); Hemoglobin 8.6 g/dL (11.7-13.8); Immature Granulocyte Percent A 0.6 % (0.0-0.0); Lymphocytes Absolute Auto 3.08 K/mm3 (1.10-4.50); Mean Corpuscular HGB Conc 30.9 g/dL (32-36); Mean Corpuscular Hemoglobin 30.0 pg (27.0-31.0); Mean Corpuscular Volume 96.9 fL (78.0-102.0); Nucleated Red Blood Cells Absolute Auto 0.00 K/mm3 (0.00-0.00); Nucleated Red Blood Cells Perc 0.0 % (0-0.0); Platelet Count Result 202 K/mm3 (150-420); Red Blood Count 2.87 M/mm3 (4.20-5.40); White Blood Count 7.8 K/mm3 (4.8-10.8)
[2025-03-13 05:47] VITALS: PULSE 90; RESP 20; O2SAT 99
[2025-03-13 06:15] LABS: Alanine Aminotransferase 36 U/L (6-35); Albumin Level 2.5 g/dL (3.5-5.1); Alkaline Phosphatase 81 U/L (38-126); Anion Gap 0 mmol/L (4-12); Aspartate Amino Transferase 30 U/L (14-36); Bilirubin,Total 1.1 mg/dL (0.2-1.3); Blood Urea Nitrogen 8 mg/dL (7-17); Calcium 7.2 mg/dL (8.4-10.2); Carbon Dioxide 29 mmol/L (22-30); Chloride 107 mmol/L (98-107); Estimated CRCL calculation 86 ml/min; Estimated Glomerular Filt Rate > 60; Glucose 110 mg/dL (65-110); Magnesium 1.6 mg/dL (1.6-2.3); Osmolality Calculated 281 mOsm/kg (285-295); Potassium 2.9 mmol/L (3.4-5.0); Sodium 136 mmol/L (137-145); Total Protein 5.2 g/dL (6.3-8.2)
[2025-03-13 08:00] VITALS: BP 124/52; PULSE 104; RESP 20; TEMP 36.6; O2SAT 96
[2025-03-13] MEDS: THERAPEUTIC MULTIVITAMINS/MINERALS TAB (*BKC) 1 TABLET PO (08:59)
[2025-03-13] MEDS: SERTRALINE HCL 50 MG TABLET 100 MG PO (08:59)
[2025-03-13] MEDS: MONTELUKAST SODIUM 10 MG TABLET PO (08:59)
[2025-03-13] MEDS: LOSARTAN POTASSIUM 25 MG TABLET PO (08:59)
[2025-03-13] MEDS: KCL 20 MEQ/SW 100 ML 100 ML 50 MEQ IVPB ×2 (09:50→11:55)
[2025-03-13] MEDS: POTASSIUM CHLORIDE 20 MEQ ER TABLET 40 MEQ PO ×2 (10:38→16:31)
--- NOTE | 2025-03-13 11:20 | P.SS_ITS ---
Same Day Admit/Disch: HPI History of Present Illness Chief complaint: N/V/dehydration Narrative: Rosaura Sarmiento is a 69 year old female who presented to the emergency department after speaking with her primary care physician due to 4 days nausea vomiting and no appetite but thought it was food poisoning. she was sent to the emergency department for further evaluation with concerns of severe dehydration electrolyte imbalance. Patient also reported a mild productive cough denied any chest pain, dizziness, fever, or chills or visual changes. patient did also report some mild abdominal pain from vomiting and coughing. patient did report she was attempting to drink water or Gatorade at home was unable to keep it down she then began to start having a mild productive cough which increased and would lead to her vomiting sputum. In the ED: evaluation in the emergency department patient was tachycardic, hypertensive, dehydrated with hypokalemia of 2.7, lactic acidosis of 4.3. CXR showed no acute cardiopulmonary disease. [facility] Past Medical History Medical History Osteoporosis Hepatic steatosis Depression Arthritis Hyperglycemia Arthritis of finger of left hand Trigger finger, left little finger Surgical History Surgical History History of elbow surgery ORIF History of tonsillectomy History of total hysterectomy with bilateral salpingo-oophorectomy (BSO) History of cholecystectomy Family History Family History Sibling Diabetes mellitus Malignant neoplasm of prostate Mother Family history of suicide Father Family history of Alzheimer's disease Social History Social History Social History: 02/26/25 somewhat confident with medical forms Smoking status: Unknown if ever smoked Second hand tobacco smoke exposure: No Alcohol intake: never Substance use: never Substance use type: does not use Do You Feel Safe in your Home?: Yes Lack of Transportation: No Lack of Food: Never True Current Housing: I Have Housing Concerned About Future Housing: No Difficulty Paying Gas/Electric Bills: No Difficulty Paying for Meds: No Currently Unemployed: No Education: High School Diploma/GED Difficulty w/ Childcare or Family Care: No Living arrangements: with family Occupation/Education: retired Gender identity (if verbalized by the patient): Female Sexual Orientation (if Verbalized by the Patient): Straight or Heterosexual Spiritual care concerns: No Same Day Admit/Disch: Med Pre-admit Medications Home Medications ?Medication ?Instructions ?Recorded ?Confirmed ?Type qczkupuuhgrb-uxasqvdd-eekdu acid 1 cap PO DAILY 07/05/20 03/12/25 History 400 mcg-vitamin K 80 mcg capsule (Multi For Her 50 Plus) tramadol 50 mg tablet 50 mg PO Q6H PRN pain #30 tabs 09/04/24 03/12/25 Rx ibuprofen 800 mg tablet 800 mg PO TID PRN pain #90 tabs 03/05/25 03/12/25 Rx losartan 25 mg tablet 25 mg PO DAILY #90 tabs 03/05/25 03/12/25 Rx montelukast 10 mg tablet 10 mg PO DAILY #90 tabs 03/05/25 03/12/25 Rx sertraline 100 mg tablet 100 mg PO DAILY #90 tabs 03/05/25 03/12/25 Rx albuterol sulfate 2.5 mg/3 mL 2.5 mg (3 mL) inhalation Q6H #75 mL 03/13/25 Rx (0.083 %) solution for nebulization benzonatate 100 mg capsule 100 mg PO TID PRN cough #30 caps 03/13/25 Rx ondansetron 4 mg disintegrating 4 mg PO Q8H PRN nausea and 03/13/25 Rx tablet vomiting #30 tabs Review of Systems Review of Systems All systems reviewed & are unremarkable except as noted in HPI and below Exam Const: General: comfortable and no acute distress Other: Pleasant female up in chair HENMT: Face/Nose/Sinus: Normal nares present Mouth: Yes moist mucous m embranes Eyes: General: appearance normal, both eyes and all related structures Sclera: sclerae normal Pupils: Equal, round and reactive pupils present Neck: Neck: supple and no JVD Resp: Auscultation: wheezes (Scant) upper bilaterally Other: Non-productive cough Cardio: Rate: regular rate Rhythm: regular rhythm GI: GI Palp: Yes Soft to palpation Auscultation: normal bowel sounds Other: Mild tenderness due to coughing and recent vomiting Skin: General skin exam: normal color and no rashes or lesions noted Wounds: no wounds Neuro: General: gait normal Speech: normal speech Motor exam (neuro): 5/5 motor strength present throughout Sensory Exam: normal sensation Extrem: General: normal to inspection Psych: Mental Status: mental status grossly normal Affect: normal affect DS: Data Data Completed and Pending Labs on day of discharge: Labs from last 24 hours 03/13/25 03/12/25 03/12/25 05:31 18:57 17:06 WBC 7.8 RBC 2.87 L Hgb 8.6 L Hct 27.8 L MCV 96.9 MCH 30.0 MCHC 30.9 L RDW 18.3 H Plt Count 202 MPV 9.5 Immature Gran % (Auto) 0.6 H Neut % (Auto) 45.7 L Lymph % (Auto) 39.3 [place] % (Auto) 7.5 Eos % (Auto) 6.4 H Baso % (Auto) 0.5 Lymph # (Auto) 3.08 [place] # (Auto) 0.59 Eos # (Auto) 0.50 Baso # (Auto) 0.04 Abs Immat Gran (auto) 0.05 H Absolute Neuts (auto) 3.58 Absolute Nucleated RBC 0.00 Nucleated RBC % 0.0 Sodium 136 L Potassium 2.9 L 3.1 L Chloride 107 Carbon Dioxide 29 Anion Gap 0 L BUN 8 Creatinine 0.61 L Estim Creat Clear Calc 86 Estimated GFR > 60 Glucose 110 Calculated Osmolality 281 L Lactic Acid 2.0 3.1 H Calcium 7.2 L Magnesium 1.6 1.6 Total Bilirubin 1.1 AST 30 ALT 36 H Alkaline Phosphatase 81 Total Protein 5.2 L Albumin 2.5 L Imaging Radiologist's impression: EXAMINATION: XR chest 1V portable DATE: 03/12/2025 08:57 INDICATION: Cough and congestion TECHNIQUE: frontal view of the chest was obtained. COMPARISON: Chest CT dated 12/02/2024 FINDINGS: Again seen is a calcified left upper lobe nodule consistent with old granulomatous disease. No other airspace opacities, pulmonary edema, pleural effusion or pneumothorax. The cardiomediastinal silhouette is normal. IMPRESSION: 1. Left upper lobe calcite granulomas. No acute cardiopulmonary disease. DS: Summary Hospital Course Reason for hospitalization: Dehydration/N/V/URI/Hypokalemia Hospital Course: Rosaura Sarmiento is a 69 year old female who presented to the emergency department after speaking with her primary care physician due to 4 days nausea vomiting and no appetite but thought it was food poisoning. she was sent to the emergency department for further evaluation with concerns of severe dehydration electrolyte imbalance. Patient also reported a mild productive cough denied any chest pain, dizziness, fever, or chills or visual changes. patient did also report some mild abdominal pain from vomiting and coughing. patient did report she was attempting to drink water or Gatorade at home was unable to keep it down she then began to start having a mild productive cough which increased and would lead to her vomiting sputum. In the ED: evaluation in the emergency department patient was tachycardic, hypertensive, dehydrated with hypokalemia of 2.7, lactic acidosis of 4.3. CXR showed no acute cardiopulmonary disease. Hospital Course: patient was admitted to the medical unit for observation overnight with continued potassium replacement and aggressive IV fluid hydration as well as antiemetics. patient with overall improvement IV hydration was able to tolerate oral intake and hypokalemia resolving last potassium was 3.3 gave another 40 mg p.o. prior to discharge however did not discharge on potassium since patient does take losartan and her nausea and vomiting had resolved. EKG showed no ST /T changes. lactic acidosis resolving with IV fluid likely secondary to nausea and vomiting dehydration. Patient did still report a mild to moderate productive cough with scant wheezing to upper lobes she appeared to be an upper respiratory viral infection with normal WBC and no significant findings on CXR. patient did report she believes she may have a history of COPD but has not been officially diagnosed does use a albuterol nebulizer at home when needed. patient seen assessed prior to discharge in no acute distress and resolution of symptoms other than mild to moderate cough. Patient was tolerating oral intake reported she only gets nauseous when she coughs. patient was discharged home recommended continued use of her albuterol nebulizer, Tessalon Perles for cough as well as recommended OTC Mucinex supportive care with acetaminophen for mild fevers or body aches and to continue to use her incentive spirometer. she was also instructed to avoid heat and allergen irritants. patient ambulatory at time of discharge acknowledged and agreed with discharge plan discharged home and follow-up with care physician. Status at Discharge Functional status at discharge: independent ambulation Overall status at discharge: patient is back to baseline Time Spent with Patient Time attestation: Total time spent providing and/or coordinating discharge services: DS: Admitting Diagnosis Discharge Date 03/13/2025 Admitting Diagnosis URI/N/V/dehydration/Hypokalemia DS: Discharge Diagnosis Discharge Diagnosis (1) Acute dehydration: Code(s): E86.0 - Dehydration Status: Acute (2) Acute hypokalemia: Code(s): E87.6 - Hypokalemia Status: Acute (3) URI (upper respiratory infection): Code(s): J06.9 - Acute upper respiratory infection, unspecified Status: Acute (4) N&V (nausea and vomiting): Code(s): R11.2 - Nausea with vomiting, unspecified Status: Acute (5) Lactic acidosis: Code(s): E87.20 - Acidosis, unspecified Status: Acute Discharge Plan Discharge Attending physician on discharge: Cesar Hernandez Consulting providers: Amy Mcgee Discharging Clinician: Amy Mcgee Anticipated Discharge Date/Time: 03/13/25 15:00 Patient Disposition: Home Activity: may shower and as tolerated Diet: heart healthy Discharge Instructions: 1). Upper respiratory * Supportive care may use acetaminophen for mild fevers and body aches * I prescribed Tessalon Pearls for cough * May use your Nebulizer for shortness of breath and wheezing * May use OTC Mucinex as needed * Avoid the heat and allergens 2). N/V with hypokalemia * I replaced your potassium while hospitalized * I did prescribed Zofran for any Nausea take as needed * Stay hydrated with water Patient Instructions: Antibiotic Form, Hypokalemia (DC), Upper Respiratory Infection (DC) Patient Language: Portuguese Stand Alone Forms: General Discharge Information Follow-up/Referrals: Prabha Dotson PA-C [Primary Care Provider] - 2 weeks Discharge Medications: New ondansetron 4 mg tablet,disintegrating 4 mg PO Q8H PRN (Reason: nausea and vomiting) Qty: 30 0RF Continued albuterol sulfate 2.5 mg /3 mL (0.083 %) solution for nebulization 2.5 mg inhalation Q6H Qty: 75 0RF benzonatate 100 mg capsule 100 mg PO TID PRN (Reason: cough) Qty: 30 0RF Multi For Her 50 Plus 400-80 mcg Capsule 1 cap PO DAILY tramadol 50 mg tablet 50 mg PO Q6H PRN (Reason: pain) Qty: 30 0RF sertraline 100 mg tablet 100 mg PO DAILY Qty: 90 1RF montelukast 10 mg tablet 10 mg PO DAILY Qty: 90 1RF losartan 25 mg tablet 25 mg PO DAILY Qty: 90 1RF Patient Comments: takes at bedtime ibuprofen 800 mg tablet 800 mg PO TID PRN (Reason: pain) Qty: 90 0RF Date of admission: 03/12/25 10:46 Primary Care Provider: Prabha Dotson Admitting Provider: Cesar Hernandez Attending physician on admission: Cesar Hernandez Condition: Stable Quality -Patient's previous records reviewed on admission -ER notes reviewed in detail on admission -discussed all findings and current treatment plan with patient/Family/POA -Consultations reviewed for recommendations -Patient's disposition for safe discharge discussed with case packer Dictation performed by [employer] direct speech recognition software, therefore cemetery warden variants and typographical errors may occur. Hospitalist MIPS Advance Care Plan I have confirmed that the patient's Advanced Care Plan is present, code status is documented, or surrogate decision maker is listed in patient medical record.: Yes Medication Reconciliation I have utilized all available resources to obtain, update and review the patients current medications (includes all prescriptions, OTC, herbals, cannabis, and nutritional supplements).: Yes The patient is not eligible for med reconciliation; the patient is in a emergent medical situation where delaying treatment would jeopardize the patients health.: No Heart Failure (Exclusion) Patient has history of Heart Transplant or Left Ventricular Assistive Device?: No IF YES, STOP HERE Heart Failure (Qualifier) Patient has current or prior documentation of LVEF less than or equal to 40%, or mod/servere depressed LVSF?: No IF NO, STOP HERE
[2025-03-13 14:26] LABS: Anion Gap 3 mmol/L (4-12); Blood Urea Nitrogen 8 mg/dL (7-17); Calcium 7.2 mg/dL (8.4-10.2); Carbon Dioxide 24 mmol/L (22-30); Chloride 108 mmol/L (98-107); Estimated CRCL calculation 88 ml/min; Estimated Glomerular Filt Rate > 60; Glucose 152 mg/dL (65-110); Osmolality Calculated 281 mOsm/kg (285-295); Potassium 3.3 mmol/L (3.4-5.0); Sodium 135 mmol/L (137-145)
--- NOTE | 2025-03-13 17:30 | PC.NURSE ---
verbalizes an understanding of dc instructions. iv removed. dc to daughter and son-n-law per wc for home.
--- NOTE | 2025-03-16 16:07 | PC.NURSE ---
Discharge call back made. Spoke with Rosaura, asked if she understood all discharge instructions and education? Rosaura informs Oh yes then she was asked, did the nurse go over side effects of any new meds you may been sent home with. Rosaura replies, NO, I have taken them all before and I did not have any questions about side effects.
== END 2025-03-13 16:55 | disposition home or self-care (01) ==
LOC: CHSED 10:45 → CHS2ND 12:26
PROVIDERS: Nurse Practitioner Adult Health; Admitting Provider Internal Medicine; Emergency Provider Emergency Medicine; PCP Physician Assistant Medical; Visit Provider Nurse Practitioner Family
DX: E86.0 Dehydration (principal); E87.6 Hypokalemia; J06.9 Acute upper respiratory infection, unspecified; R11.2 Nausea with vomiting, unspecified; E87.20 Acidosis, unspecified; I10 Essential (primary) hypertension; D46.9 Myelodysplastic syndrome, unspecified; M81.0 Age-related osteoporosis without current pathological fracture; K76.0 Fatty (change of) liver, not elsewhere classified; Z20.822 Contact with and (suspected) exposure to COVID-19; Z79.82 Long term (current) use of aspirin; Z79.51 Long term (current) use of inhaled steroids; Z79.899 Other long term (current) drug therapy; Z88.2 Allergy status to sulfonamides; Z88.8 Allergy status to other drugs, medicaments and biological substances; Z90.710 Acquired absence of both cervix and uterus; Z90.79 Acquired absence of other genital organ(s); Z90.722 Acquired absence of ovaries, bilateral; Z90.49 Acquired absence of other specified parts of digestive tract
CPT/HCPCS: 36415; 71045; 80048; 80053; 83605; 83735; 84132; 85025; 87637; 93005; 94640; 96361; 96365; 96366; 99285; A9270; G0378; J3480; J7030; J7040

== ENCOUNTER 2025-06-04 09:01 | Outpatient (CLI) | payer MEDICARE, SELFPAY ==
--- NOTE | ~2025-06-04 | CT_ITS ---
CT ABDOMEN AND PELVIS WITHOUT CONTRAST Clinical History: K42.9 - Umbilical hernia without obstruction or gangrene Comparison: None Technique: Unenhanced axial images lung bases to symphysis pubis Coronal, sagittal reformats CT images acquired with automatic exposure control for dose reduction DLP: 1342 mGy-cm Findings: Without intravenous contrast, sensitivity for detecting visceral parenchymal abnormalities decreased. Lung bases: Mild dependent changes. Visualized heart and pericardium: Unremarkable. Liver: Enlarged. Steatosis. Gallbladder: Removed. Spleen: Unremarkable. Pancreas: Unremarkable. Adrenal glands: Unremarkable. Kidneys: Right kidney- No hydronephrosis. Pain probable 1 mm stone. Left kidney- No hydronephrosis. No stones. Distal esophagus/stomach: Unremarkable. Small bowel loops: Normal caliber and wall thickness. Colon: Diverticula. Normal caliber and wall thickness. Normal RLQ appendix. Nodes: No enlarged nodes. Peritoneum: No ascites. No free intraperitoneal air. Urinary bladder: Unremarkable. Uterus: Removed. Adnexa: No masses. Bones: No acute bony abnormality. Soft tissues: Small umbilical hernia with fat, no stranding or fluid. Small nodular focus right breast periareolar 10:00. Unopacified abdominal aorta: No aneurysmal dilatation. IMPRESSION: 1. No acute findings. 2. Small focus right breast. Recommend mammogram and/or ultrasound. 3. Small umbilical hernia with fat. No evidence of strangulation. 4. Additional findings as above. Reviewed, dictated and finalized at location R.
--- OUTSIDE RECORDS SUMMARY | 2025-06-04 09:24 | XMS_ITS | Patient Health Record ---
Author Organization [facility] Address [address] [facility] [address] [place] [address] Care Team Providers Care Wheat Buyer Name Role Phone Amy Spears Unavailable [phone] Reason For Referral No Information Medications Medication SIG (Take, Route, Frequency, Duration) Notes Start Date End Date Status Losartan Potassium 50 MG Tablet Oral 07/26/2020 Active Losartan Potassium 100 MG Tablet Oral 07/26/2020 Active Sertraline HCl 100 MG Tablet Oral 07/26/2020 Active Montelukast Sodium 10 MG Tablet Oral 07/26/2020 Active Amoxicillin-Pot Clavulanate 875-125 MG Tablet Oral 07/26/2020 Active Gabapentin 300 MG Capsule Oral 07/26/2020 Active DULoxetine HCl 30 MG Capsule Delayed Release Particles Oral 07/26/2020 Active Immunizations Vaccine Route Administration Date Status Comme nts Influenza virus vaccine, quadrivalent (IIV4), split virus, 0.25 mL dosage Unknown 06/11/2018 Administered Influenza virus vaccine, quadrivalent (IIV4), split virus, 0.25 mL dosage Unknown 06/03/2020 Administered Social History Social History Additional Details Category Social Info Options Details Migrated Social History Migrated Social History Alcohol Intake: None 07/06/2020,Tobacco Years: Never smoker 07/06/2020,Smoking Status: 0 07/06/2020 Plan Of Treatment No Information Insurance Providers Payer Name Payer Address Payer Phone Subscriber Number Group Number Insured Name Patient Relationship to Insured Coverage Start Date Coverage End Date [place] [address] [place] [phone] [id number] ELINOR MARC Self - patient is the insured Aetna Medicare Supplement [address] [place] [address] [id number] MAGNOLIAELINOR MISTRY Self - patient is the insured Medical (General) History Surgical History Surgery Date(Month/Year) Hysterectomy/revise vagina (31780) Removal of gallbladder (04279)
--- OUTSIDE RECORDS SUMMARY | 2025-06-04 09:24 | XMS_ITS | Encounter Summary ---
Author Organization [facility] Address Replaced by [facility] [place] [address] Care Team Providers Care Instrumentation And Controls Technician Name Role Phone Mario Alberto Murray MD Primary Care Provider [phone] Prabha Dotson PA-C Primary Care Provider [phone] Encounter Details Date Type Department Care Team (Late st Contact Info) Description 11/30/2015 Abstract [facility] CONVERSION [address] [place] [address] , Generic Conversion, Social History Tobacco Use [...] Rule Out 10/03/2021 10/03/2021 10/03/2021 10:02 PM CRUSHER DRY GROUND MICA COVID-19 Confirmed 10/03/2021 10/03/2021 12:32 AM [employer] COVID-19 Rule Out 08/08/2023 08/08/2023 08/08/2023 10:12 AM [employer] COVID-19 Confirmed 08/08/2023 08/08/2023 3 12:32 AM CR[employer]HER [employer] COVID-19 Rule Out 10/05/2024 10/05/2024 10/05/2024 2:42 PM CRUSHER [employer] MICA documented as of this encounter Care Teams Instrumentation And Controls Technician Relationship Specialty Start Date End Date Mario Alberto Murray MD PCP - General INTERNAL MEDICINE 04/03/21 08/07/23 Prabha Dotson PA-C [address] [place] [address] [address] [place] [address] PCP - General PHYSICIAN AD COPY WRITER 08/08/23 documented as of this encounter
--- OUTSIDE RECORDS SUMMARY | 2025-06-04 09:24 | XMS_ITS | Clinical Summary ---
Author Organization [facility] Address [address] [place] [address] Care Team Providers Care Seed Cleaning Machine Operator Name Role Phone Prabha Dotson PA-C Primary Care Provider [phone] Allergies Active Allergy Reactions Criticality Noted Date [...] Comments Blood Pressure 160/66 10/05/2024 3:19 PM CARD HANGER Pulse 70 10/05/2024 3:19 PM CARD HANGER Temperature 37.2 C (98.9 F) 10/05/2024 3:19 PM CARD HANGER Respiratory Rate 18 10/05/2024 3:19 PM CARD HANGER Oxygen Saturation 99% 10/05/2024 3:19 PM CARD HANGER Inhaled Oxygen Concentration - - Weight 101 kg (222 lb 10.6 oz) 10/05/2024 2:06 P M CARD HANGER Height 157.5 cm (5' 2) 10/05/2024 2:06 PM CARD HANGER Body Mass Index 40.73 10/05/2024 2:06 PM CARD HANGER Plan of Treatment Health Maintenance Due Date [...] Wellness Visit 2020 COVID-19 Vaccine (3 - 2024-2 6 season) 2025 12/21/2020, 11/23/2020 Dexa Scan (General) Completed 12/17/2019, [...] complete this topic Insurance AET Care Teams Seed Cleaning Machine Operator Relationship Specialty Start Date End Date Prabha Dotson PA-C [address] [place] [address] [address] [place] [address] PCP - General PHYSICIAN PIPELINE GANG SUPERVISOR 08/08/23
--- OUTSIDE RECORDS SUMMARY | 2025-06-04 09:24 | XMS_ITS | Clinical Summary ---
Author Organization [facility] Address [address] [place] [address] Care Team Providers Care Supervisor Taping Name Role Phone Unavailable Primary Care Provider [...] Encounters Date Type Department Care Team Description 05/19/2025 External Device Data [facility] ABSTRACTION Provider, Abstract 05/19/2025 External Device Data STL ABSTRACTION Provider, Abstract 04/21/2025 External Device Data STL ABSTRACTION Provider, Abstract 04/08/2025 External Device Data [facility] ABSTRACTION Provider, Abstract 04/07/2025 External Device Data [facility] ABSTRACTION Provider, Abstract 04/07/2025 External Device Data [facility] ABSTRACTION Provider, Abstract 03/18/2025 External Device Data [facility] ABSTRACTION Provider, Abstract 03/18/2025 External Device Data [facility] ABSTRACTION Provider, Abstract 03/17/2025 External Device Data [facility] ABSTRACTION Provider, Abstract from Last 3 Months Family History Medical [...] on file Legal Sex Female 8:31 AM NEONATAL INTENSIVE CARE UNIT NURSE Gender Identity Not on file Sexual Orientation Not on file Last Filed Vital Signs Vital Sign Reading Time Taken Comments Blood Pressure 132/70 09/15/2024 11:43 AM NEONATAL INTENSIVE CARE UNIT NURSE Pulse 99 09/15/2024 11:43 AM NEONATAL INTENSIVE CARE UNIT NURSE Temperature 36.7 C (98 F) 09/15/2024 11:43 AM NEONATAL INTENSIVE CARE UNIT NURSE Respiratory Rate 16 09/15/2024 11:4 3 AM NEONATAL INTENSIVE CARE UNIT NURSE Oxygen Saturation 96% 09/15/2024 11: 43 AM NEONATAL INTENSIVE CARE UNIT NURSE Inhaled Oxygen Concentration - - Weight 103.8 kg (228 lb 12.8 oz) 2024 11:43 AM NEONATAL INTENSIVE CARE UNIT NURSE Height 157.5 cm (5' 2) 06/07/2022 9:52 AM CDT Body Mass Index 41.85 06/07/2022 9:52 AM CDT Plan of Treatment Upcoming Encounters Date Type Department Care Team (Late st Contact Info) Description 09/18/2025 8:30 AM NEONATAL INTENSIVE CARE UNIT NURSE Office Visit [facility] Oncology and Hematology - [place] [address] [facility] [address] [place] [address] Tylor Jaeger MD [address] [facility] [address] [place] [address] Health Maintenance Due Date Last [...] years 1-dose series) 2015 INFLUENZA VACCINE (#1) 2025 COVID-19 Vaccine (3 - season) 2025, 11/23/2020 OSTEOPOROSIS SCREENING 01/09/2029 01/10/2024, 2019 Procedures Procedure [...] SUPP [facility]IC[facility]
== END 2025-06-04 09:02 | disposition home or self-care (01) ==
PROVIDERS: PCP Physician Assistant Medical; Visit Provider Surgery
DX: K42.9 Umbilical hernia without obstruction or gangrene (principal)
CPT/HCPCS: 74176

== ENCOUNTER 2025-06-25 08:29 | Outpatient (CLI) | payer MEDICARE, SELFPAY ==
--- NOTE | ~2025-06-25 | MMUS_ITS ---
EXAMINATION: MM diagnostic bridger RT w benny, US breast RT limited INDICATION: 70-year old female; presents for evaluation of an abnormality seen on CT scan completed on 06/04/2025 that showed a small nodular focus in the right breast periareolar 10:00 location. COMPARISON: 02/26/2012 through 10/12/2006 TECHNIQUE: Digital breast tomosynthesis ML, CC and MLO views of the LEFT breast were obtained with computer-aided detection to assist in interpretation of the study. FINDINGS: There are scattered areas of fibroglandular density. There are no suspicious masses, calcifications, architectural distortion or any other abnormality in either breast. No suspicious mammographic abnormality correlates to the radiopaque skin marker. RIGHT BREAST ULTRASOUND FINDINGS: There are prominent ducts containing fluid with low-level echoes. No suspicious solid or cystic masses seen. This findings are probably benign. IMPRESSION: 1. NO MAMMOGRAPHIC OR SONOGRAPHIC FINDING CORRELATES TO THE CT SCAN FINDINGS. FOLLOW-UP CLINICALLY WARRANTED. 2. PROBABLY BENIGN PROMINENT DILATED DUCTS IN THE SUBAREOLAR LOCATION. SHORT- TERM FOLLOW-UP ADVISED. RECOMMENDATION: 6 MONTH FOLLOW-UP RIGHT BREAST ULTRASOUND. BI-RADS 3, PROBABLY BENIGN Reviewed, dictated and finalized at location B. IMPRESSION: 1. NO MAMMOGRAPHIC OR SONOGRAPHIC FINDING CORRELATES TO THE CT SCAN FINDINGS. F OLLOW-UP CLINICALLY WARRANTED. 2. PROBABLY BENIGN PROMINENT DILATED DUCTS IN THE SUBAREOLAR LOCATION. SHORT-TE RM FOLLOW-UP ADVISED. RECOMMENDATION: 6 MONTH FOLLOW-UP RIGHT BREAST ULTRASOUND. BI-RADS 3, PROBABLY BENIGN
--- OUTSIDE RECORDS SUMMARY | 2025-06-25 08:36 | XMS_ITS | Encounter Summary ---
Author Organization [facility] Address [address] [place] [address] Care Team Providers Care Boarding House Manager Name Role Phone Unavailable Primary Care Provider Unavailabl e Encounter Details Date Type Department Care Team (Late st Contact Info) Description 06/24/2025 External Device Data [facility] Provider, Abstract NO ADDRESS ON FILE Social History Tobacco Use Types Packs/Day Years Used Date Smoking Tobacco: Never Alcohol Use Standard Drinks/Week Comments Yes 7 (1 standard drink = 0.6 oz pur e alcohol) a night weekly Comments No Sex and Gender Information Value Date Recorded Sex Assigned at Not on file Legal Sex Female 8:31 AM CABLE WIRER Gender Identity Not on file Sexual Orientation Not on file documented as of this encounter Plan of Treatment Upcoming Encounters Date Type Department Care Team (Late st Contact Info) Description 09/18/2025 8:30 AM CABLE WIRER Office Visit [facility] Oncology and Hematology - [place] [address] [facility] [address] [place] [address] Tylor Jaeger MD [address] [facility] [address] [place] [address] documented as of this encounter Visit Diagnoses Not on filedocumented in this encounter
--- OUTSIDE RECORDS SUMMARY | 2025-06-25 08:36 | XMS_ITS | Encounter Summary ---
Author Organization [facility] Address [address] [place] [address] Care Team Providers Care Estate Attorney Name Role Phone Unavailable Primary Care Provider Unavailabl e Encounter Details Date Type Department Care Team (Late st Contact Info) Description 06/23/2025 External Device Data STL ABSTRACTION Provider, Abstract NO ADDRESS ON FILE Social History Tobacco Use Types Packs/Day Years Used Date Smoking Tobacco: Never Alcohol Use Standard Drinks/Week Comments Yes 7 (1 standard drink = 0.6 oz pur e alcohol) a night weekly Comments No Sex and Gender Information Value Date Recorded Sex Assigned at Not on file Legal Sex Female 8:31 AM POLL CLERK Gender Identity Not on file Sexual Orientation Not on file documented as of this encounter Plan of Treatment Upcoming Encounters Date Type Department Care Team (Late st Contact Info) Description 09/18/2025 8:30 AM POLL CLERK Office Visit [facility] Oncology and Hematology - [place] [address] [facility] [address] [place] [address] Tylor Jaeger MD [address] [facility] [address] [place] [address] documented as of this encounter Visit Diagnoses Not on filedocumented in this encounter
--- OUTSIDE RECORDS SUMMARY | 2025-06-25 08:36 | XMS_ITS | Clinical Summary ---
Author Organization [facility] Address [address] [place] [address] Care Team Providers Care Weatherization Coordinator Name Role Phone Unavailable Primary Care Provider [...] Encounters Date Type Department Care Team Description 06/24/2025 External Device Data STL ABSTRACTION Provider, Abstract 06/23/2025 External Device Data STL ABSTRACTION Provider, [...] on file Legal Sex Female 8:31 AM FORM LAYER Gender Identity Not on file Sexual Orientation Not on file Last Filed Vital Signs Vital Sign Reading Time Taken Comments Blood Pressure 132/70 09/15/2024 11:43 AM FORM LAYER Pulse 99 09/15/2024 11:43 AM FORM LAYER Temperature 36.7 C (98 F) 09/15/2024 11:43 AM FORM LAYER Respiratory Rate 16 09/15/2024 11:4 3 AM FORM LAYER Oxygen Saturation 96% 09/15/2024 11: 43 AM FORM LAYER Inhaled Oxygen Concentration - - Weight 103.8 kg (228 lb 12.8 oz) 2024 11:43 AM FORM LAYER Height 157.5 cm (5' 2) 06/07/2022 9:52 AM CDT Body Mass Index 41.85 06/07/2022 9:52 AM CDT Plan of Treatment Upcoming Encounters Date Type Department Care Team (Late st Contact Info) Description 09/18/2025 8:30 AM FORM LAYER Office Visit [facility] Oncology and Hematology - [place] [address] [facility] [address] [place] [address] Tylor Jaeger MD [address] [facility] [address] [place] [address] Health Maintenance Due Date Last Done Comments Pre-Diabetes and Diabetes Screening 1955 DTAP/TDAP/TD VACCINES (1 - Tdap) 1974 BREAST CANCER SCREENING 1995 COLORECTAL SCREENING 2000 Colorectal Cancer Screening 2000 FIT-DNA Q 3 years 2000 FIT/FOBT Q 1 year 2000 Flex Sig/CT Colonography Q 5 years 2000 PNEUMOCOCCAL VACCINE 50+ YEA RS (1 of 1 - PCV) 2005 RSV VACCINE (60+ or ) (1 - Risk 50-74 years 1-dose series) 2005 ZOSTER VACCINE (1 of 2) 2005 INFLUENZA VACCINE (#1) 2025 COVID-19 Vaccine ( - season) 2025, 11/23/2020 OSTEOPOROSIS SCREENING 01/09/2029 [...] SUPP AESSI MEDICARE PART A AND B T MEDICARE SUPP AESSI
== END 2025-06-25 08:30 | disposition home or self-care (01) ==
LOC: CHSIMG 08:30
PROVIDERS: PCP Physician Assistant Medical; Visit Provider Physician Assistant Medical
DX: R92.8 Other abnormal and inconclusive findings on diagnostic imaging of breast (principal); N63.10 Unspecified lump in the right breast, unspecified quadrant; R93.5 Abnormal findings on diagnostic imaging of other abdominal regions, including retroperitoneum
CPT/HCPCS: 76642; 77061; 77065; G0279

== ENCOUNTER 2025-07-16 07:17 | Outpatient (CLI) | payer MEDICARE, SELFPAY ==
--- OUTSIDE RECORDS SUMMARY | 2025-07-16 07:28 | XMS_ITS | Clinical Summary ---
Author Organization [facility] Address [address] [place] [address] Care Team Providers Care Gear Cutting Machine Operator Name Role Phone Prabha Dotson PA-C Primary Care Provider [phone]- [phone] Allergies Active Allergy Reactions Criticality Noted Date Comments Shellfish Protein-Containing Drug Products Anaphylaxis High 04/03/2021 Medications sertraline (ZOLOFT) 100 MG tablet Take [...] Comments Blood Pressure 160/66 10/05/2024 3:19 PM STITCH BONDING MACHINE DRAWER IN Pulse 70 10/05/2024 3:19 PM STITCH BONDING MACHINE DRAWER IN Temperature 37.2 C (98.9 F) 10/05/2024 3:19 PM STITCH BONDING MACHINE DRAWER IN Respiratory Rate 18 10/05/2024 3:19 PM STITCH BONDING MACHINE DRAWER IN Oxygen Saturation 99% 10/05/2024 3:19 PM STITCH BONDING MACHINE DRAWER IN Inhaled Oxygen Concentration - - Weight 101 kg (222 lb 10.6 oz) 10/05/2024 2:06 P M STITCH BONDING MACHINE DRAWER IN Height 157.5 cm (5' 2) 10/05/2024 2:06 PM STITCH BONDING MACHINE DRAWER IN Body Mass Index 40.73 10/05/2024 2:06 PM STITCH BONDING MACHINE DRAWER IN Plan of Treatment Health Maintenance Due Date [...] - 2024-2 6 season) 2025 12/21/2020, 11/23/2020 Influenza Adult (#1) 2025 Dexa Scan (General) Completed 12/17/2019, 12/17/2019 Hepatitis A Vaccines Aged Out No long er eligible based on patient's age to complete this topic Meningococcal B Vaccine Aged Out No l onger eligible based on patient's age to complete this topic Meningococcal Vaccine Aged Out No victor hugo farhad eligible based on patient's age to complete this topic RSV Immunizations Under 20 Months Aged Out No longer eligible b ased on patient's age to complete this topic Insurance MEDICARE AETNA Care Teams Gear Cutting Machine Operator Relationship Specialty Start Date End Date Prabha Dotson PA-C [address] [place], [place] [address] [place] [address] PCP - General PHYSICIAN DELIVERY STOCK CLERK 08/08/23
--- OUTSIDE RECORDS SUMMARY | 2025-07-16 07:28 | XMS_ITS | Encounter Summary ---
Author Organization [facility] Address [address] [place] [address] Care Team Providers Care Shank Stapler Name Role Phone Unavailable Primary Care Provider Unavailabl e Encounter Details Date Type Department Care Team (Late Contact Info) Description 07/15/2025 Orders Only [facility] Oncology and Hematology [facility] [address] [place] [address] Tylor Jaeger MD [address] [facility] [address] [place] [address] Chronic anemia (Primary Dx) Social History Tobacco Use Types Packs/Day Years Used Date Smoking Tobacco: Never Alcohol Use Standard Drinks/Week Comments Yes 7 (1 standard drink = 0.6 oz pur e alcohol) a night weekly Comments No Sex and Gender Information Value Date Recorded Sex Assigned at Not on file Legal Sex Female 8:31 AM RADIO INTELLIGENCE OPERATOR Gender Identity Not on file Sexual Orientation Not on file documented as of this encounter Plan of Treatment Upcoming Encounters Date Type Department Care Team (Late Contact Info) Description 09/18/2025 8:30 AM RADIO INTELLIGENCE OPERATOR Office Visit [facility] Oncology and Hematology [facility] [address] [place] [address] Tylor Jaeger MD [address] [facility] [address] [place] [address] Scheduled Orders Name Type Priority Associated Diagnoses Orde r Schedule CBC WITH DIFFERENTIAL Lab Routine Chronic anemia Expected: 07/15/2025, Expires: 07/15/2026 documented as of this encounter Visit Diagnoses Diagnosis Chronic anemia- Primary Anemia, unspecified documented in this encounter
--- OUTSIDE RECORDS SUMMARY | 2025-07-16 07:28 | XMS_ITS | Clinical Summary ---
Author Organization [facility] Address [address] [facility] [place] [address] Care Team Providers Care Software Implementation Project Manager Name Role Phone Unavailable Primary Care [...] Encounters Date Type Department Care Team Description 07/15/[address] [facility] Oncology and Hematology - [place] [address] [place] [address] Tylor Jaeger MD Chronic anemia (Primary Dx) 06/24/2025 External Device Data STL ABSTRACTION Provider, [...] on file Legal Sex Female 8:31 AM INTERNATIONAL OPERATIONS MANAGER Gender Identity Not on file Sexual Orientation Not on file Last Filed Vital Signs Vital Sign Reading Time Taken Comments Blood Pressure 132/70 09/15/2024 11:43 AM INTERNATIONAL OPERATIONS MANAGER Pulse 99 09/15/2024 11:43 AM INTERNATIONAL OPERATIONS MANAGER Temperature 36.7 C (98 F) 09/15/2024 11:43 AM INTERNATIONAL OPERATIONS MANAGER Respiratory Rate 16 09/15/2024 11:4 3 AM INTERNATIONAL OPERATIONS MANAGER Oxygen Saturation 96% 09/15/2024 11: 43 AM INTERNATIONAL OPERATIONS MANAGER Inhaled Oxygen Concentration - - Weight 103.8 kg (228 lb 12.8 oz) 2024 11:43 AM INTERNATIONAL OPERATIONS MANAGER Height 157.5 cm (5' 2) 06/07/2022 9:52 AM CDT Body Mass Index 41.85 06/07/2022 9:52 AM CDT Plan of Treatment Upcoming Encounters Date Type Department Care Team (Late st Contact Info) Description 09/18/2025 8:30 AM INTERNATIONAL OPERATIONS MANAGER Office Visit [facility] Oncology and Hematology - [place] [address] [facility] [address] [place] [address] Tylor Jaeger MD [address] [facility] [address] [place] [address] Health Maintenance Due Date Last [...] 2005 INFLUENZA VACCINE (#1) 2025 COVID-19 Vaccine (3 - 2024- season) 2025, 11/23/2020 OSTEOPOROSIS SCREENING 01/09/2029 01/10/2024, [...] SUPP AESSI MEDICARE PART A AND B [facility] MEDICARE SUPP AESSI
--- OUTSIDE RECORDS SUMMARY | 2025-07-16 07:28 | XMS_ITS | Encounter Summary ---
Author Organization [facility] Address [facility] [place] [address] Care Team Providers Care Hog Room Supervisor Name Role Phone Mario Alberto Murray MD Primary Care Provider [phone] Prabha Dotson PA-C Primary Care Provider [phone]- [phone] Encounter Details Date Type Department Care Team (Late st Contact Info) Description 11/30/2015 Abstract [facility] CONVERSION [address] [place] [address] , Generic Conversion, Social History Tobacco Use [...] Rule Out 10/03/2021 10/03/2021 10/03/2021 10:02 PM RETAIL MERCHANDISER COVID-19 Confirmed 10/03/2021 10/03/2021 12:32 AM RETAIL MERCHANDISER COVID-19 Rule Out 08/08/2023 08/08/2023 08/08/2023 10:12 AM RETAIL MERCHANDISER COVID-19 Confirmed 08/08/2023 08/08/2023 12:32 AM RETAIL MERCHANDISER COVID-19 Rule Out 10/05/2024 10/05/2024 10/05/2024 2:42 PM RETAIL MERCHANDISER documented as of this encounter Care Teams Hog Room Supervisor Relationship Specialty Start Date End Date Mario Alberto Murray MD PCP - General INTERNAL MEDICINE 04/03/21 08/07/23 Prabha Dotson PA-C [address] [place] [address] [address] [place] [address] PCP - General PHYSICIAN EMERGENCY SPECIALIST 08/08/23 documented as of this encounter
--- OUTSIDE RECORDS SUMMARY | 2025-07-16 07:28 | XMS_ITS | Patient Health Record ---
Author Organization [facility] Address [address] [facility] [address] [place] [address] Care Team Providers Care Strip Mine Supervisor Name Role Phone Amy Spears Unavailable [phone] Reason For Referral No Information Medications Medication [...] Coverage End Date [place] [address] [place] [address] [id number] ELINOR MARC Self - patient is the insured Aetna Medicare Supplement [address] [place] [address] [id number] MAGNOLIAELINOR MISTRY Self - patient is the insured Medical (General) History Surgical History Surgery Date(Month/Year) Hysterectomy/revise vagina (68718) Removal of gallbladder (61693)
[2025-07-16 08:34] LABS: Hematocrit 34.2 % (37.0-47.0); Hemoglobin 11.2 g/dL (12.0-15.0); Immature Granulocyte Percent A 0.3 % (0-0.5); Lymphocytes Absolute Auto 4.12 K/mm3 (0.9-3.2); Mean Corpuscular HGB Conc 32.7 g/dl (32-36); Mean Corpuscular Hemoglobin 29.9 pg (26-34); Mean Corpuscular Volume 91.2 fl (80-100); Nucleated Red Blood Cells Absolute Auto 0.000 K/mm3 (0.0-0.012); Nucleated Red Blood Cells Perc 0.0 % (0.0-0.2); Platelet Count Result 259 k/mm3 (150-375); Red Blood Count 3.75 M/mm3 (4.2-5.4); White Blood Count 7.4 K/mm3 (4.5-10.0)
== END 2025-07-16 07:18 | disposition home or self-care (01) ==
LOC: ANHLAB 07:26
PROVIDERS: PCP Physician Assistant Medical; Visit Provider Internal Medicine Hematology & Oncology
DX: D64.9 Anemia, unspecified (principal)
CPT/HCPCS: 36415; 85025

== ENCOUNTER 2025-07-17 03:25 | Day surgery (SDC) | payer MEDICARE, SELFPAY ==
[2025-07-13 08:33] VITALS: BMI 37.0
--- NOTE | 2025-07-16 09:54 | PC.NURSE ---
07/15/25late entry Clearance sent to Dr. Jaeger regarding EGD. Called office to inquire of status-spoke with MA in office and she stated Dr. Jaeger was out of the office. She spoke with provider in office and they would order CBC to be done 07/16/25- and if hgb was >8.2 pt could proceed with EGD. 07/16/25 CBC done this am and results are good hgb is 11.2- pt called and notified she is good to proceed.
[2025-07-17 06:52] VITALS: BP 117/74; PULSE 99; RESP 20; TEMP 36.4; O2SAT 96; BMI 35.4
--- NOTE | 2025-07-17 06:55 | WPDANESEPPF ---
Anes - Initial Pre Proc Eval Procedure: Operation Date: 07/17/25 07:45 Proposed Procedures p Esophagogastroduodenoscopy EGD - Rom Oseguera MD Date/Time: 07/17/25 06:55 Surgeon: Rom Oseguera MD Pre Op Diagnosis: Nausea Patient Data Age: 70 Gender: F Height: 1.52 m Weight: 82.4 kg Last Vital Signs Temp 36.4 C L 07/17/25 06:52 Pulse 99 07/17/25 06:52 Resp 20 07/17/25 06:52 BP 117/74 07/17/25 06:52 Pulse Ox 96 07/17/25 06:52 O2 Del Method Room Air 07/17/25 06:52 Allergies Allergy/AdvReac Type Severity Reaction Status Date / Time iodine Allergy Intermediate SWELLING Verified 07/17/25 06:51 Sulfa (Sulfonamide Allergy Intermediate hives Verified 07/17/25 06:51 Antibiotics) shellfish derived Allergy Mild Swelling Verified 07/17/25 06:51 of Lip/Tongue/Throat amlodipine AdvReac Other Verified 07/17/25 06:51 Home Medications ?Medication ?Instructions ?Recorded ?Confirmed ?Type gesxuhpsxyaw-fkqmgoal-aovql acid 1 cap PO DAILY 07/05/20 07/17/25 History 400 mcg-vitamin K 80 mcg capsule (Multi For Her 50 Plus) losartan 25 mg tablet 25 mg PO DAILY #90 tabs 03/05/25 07/17/25 Rx montelukast 10 mg tablet 10 mg PO DAILY #90 tabs 03/05/25 07/17/25 Rx sertraline 100 mg tablet 100 mg PO DAILY #90 tabs 03/05/25 07/17/25 Rx albuterol 90 mcg-budesonide 80 90-80 mcg/actuation Hfa Aerosol 03/18/25 07/13/25 Sample mcg/actuation HFA aerosol inhaler Inhaler#1 Samples (Airsupra) albuterol sulfate 2.5 mg/3 mL 2.5 mg (3 mL) inhalation Q6H #75 mL 04/30/25 07/13/25 Rx (0.083 %) solution for nebulization benzonatate 100 mg capsule 100 mg PO TID PRN cough #30 caps 06/08/25 07/13/25 Rx pantoprazole 40 mg tablet,delayed 40 mg PO BID #60 tabs 06/16/25 07/17/25 Rx release metoclopramide HCl 5 mg tablet See Rx Instructions .Route 06/30/25 07/13/25 Rx .COMPLEX #30 tabs Patient hx anesthesia problems: none Family hx anesthesia problems: none Results Review: All pre-operative results and documents have been reviewed as part of the pre-operative evaluation. [facility] Past Medical History Medical History MDS (myelodysplastic syndrome) Osteoporosis Hepatic steatosis Depression Arthritis Hyperglycemia Arthritis of finger of left hand Trigger finger, left little finger Surgical History Surgical History History of elbow surgery ORIF History of tonsillectomy History of total hysterectomy with bilateral salpingo-oophorectomy (BSO) History of cholecystectomy Family History Family History Sibling Diabetes mellitus Malignant neoplasm of prostate Mother Family history of suicide Father Family history of Alzheimer's disease Social History Social History Social History: 03/22/25 somewhat confident with medical forms Smoking status: Never smoker Second hand tobacco smoke exposure: No Alcohol intake: never Substance use: never Substance use type: does not use Do You Feel Safe in your Home?: Yes Lack of Transportation: No Lack of Food: Never True Current Housing: I Have Housing Concerned About Future Housing: No Difficulty Paying Gas/Electric Bills: No Difficulty Paying for Meds: No Currently Unemployed: No Education: Trade/Vocational Certificate Difficulty w/ Childcare or Family Care: No Living arrangements: with family Occupation/Education: retired Gender identity (if verbalized by the patient): Female Sexual Orientation (if Verbalized by the Patient): Straight or Heterosexual Spiritual care concerns: No Anes - Eval Final PreProcedure Day of Procedure 07/17/25 06:55 Patient weight: obese Heart: regular rate and rhythm Lungs: clear to auscultation Airway: Mallampati scale class II Neurological: alert and oriented Last oral intake: >/= 8 hours ASA classification: III Emergent: no Anesthetic plan: proceed Anesthesia type and monitoring: general GIVS and standard monitoring Results Review: All pre-operative results and documents have been reviewed as part of the pre-operative evaluation. Informed Consent: The patient's anesthetic plan and its attendant risks and benefits were discussed with the patient/family/POA. Questions were solicited and answers provided to the satisfaction of the patient/family/POA.
[2025-07-17] MEDS: LACTATED RINGERS 1,000 ML 150 ML IV CONT (07:02)
--- NOTE | 2025-07-17 07:45 | WPDHPUPDATE1 ---
History and Physical Update Update Date/Time: 07/17/25 07:45 History and Physical has been reviewed, including an updated exam of the patient. There are NO changes in the patient's condition. Risks, benefits, and alternatives have been discussed and questions answered. Patient agrees to proceed with procedure.
--- NOTE | 2025-07-17 07:57 | S_PTH ---
PATIENT: Rosaura Alcala LOC: [facility]#:[id number] AGE/SX: 70/F ROOM: RE07/17/[address]: Rom Oseguera MD : 1955 BED: DIS: 07/17/2025 SPEC #: [id number] RECD: 07/17/25 10:49 STATUS: NIKKI SANCHEZ #: [id number] LIZ: 07/17/25 07:[address]: Rom Oseguera DEPT: [facility] Surgical RECD BY: Aria Starkey ENTERED: 07/17/25 10:50 SP TYPE: Surgical OTHR DR: Prabha Dotson PA-C Tissues: A - Small Bowel Bx B - Gastric Biopsy C - Esophageal Biopsy Procedures: Hematoxylin and Eosin Stain Gross and Microscopic Level 4 H.Pylori
[2025-07-17 07:58] VITALS: BP 99/51; PULSE 75; RESP 28; O2SAT 94
[2025-07-17 08:08] VITALS: BP 100/58; PULSE 72; RESP 16; O2SAT 98
[2025-07-17 08:18] VITALS: BP 118/66; PULSE 73; RESP 15; O2SAT 99
== END 2025-07-17 08:23 | disposition home or self-care (01) ==
PROVIDERS: PCP Physician Assistant Medical; Referring Provider Nurse Practitioner; Visit Provider Internal Medicine Gastroenterology
PROC: 0DJ08ZZ Inspection of Upper Intestinal Tract, Via Natural or Artificial Opening Endoscopic (ICD-10-PCS; CPT 43239; principal; 2025-07-17 07:45)
DX: K21.00 Gastro-esophageal reflux disease with esophagitis, without bleeding (principal); K29.50 Unspecified chronic gastritis without bleeding; B96.81 Helicobacter pylori [H. pylori] as the cause of diseases classified elsewhere; M81.0 Age-related osteoporosis without current pathological fracture; R73.9 Hyperglycemia, unspecified; M19.042 Primary osteoarthritis, left hand; F32.A Depression, unspecified; D46.9 Myelodysplastic syndrome, unspecified; R05.3 Chronic cough; E66.9 Obesity, unspecified; Z68.35 Body mass index [BMI] 35.0-35.9, adult; Z79.51 Long term (current) use of inhaled steroids; Z98.890 Other specified postprocedural states; Z90.49 Acquired absence of other specified parts of digestive tract; Z87.19 Personal history of other diseases of the digestive system; Z80.42 Family history of malignant neoplasm of prostate
CPT/HCPCS: 43239; 88305; 88342; J2704; J7120

== ENCOUNTER 2025-08-02 18:02 | Inpatient (IN) | payer MEDICARE, SELFPAY ==
--- NOTE | ~2025-08-02 | XR_ITS ---
EXAMINATION: XR chest 1V, 08/02/2025 19:25 [employer] HISTORY: syncope COMPARISON: No comparisons available. Technique: Single view. Findings: The lungs are clear, no effusion. No pneumothorax. Heart is normal size. Mediastinal and hilar contours are within normal limits. Bony thorax no acute abnormality. Impression: No acute cardiopulmonary abnormality. Reviewed, dictated and finalized at location P. [employer] Impression: No acute cardiopulmonary abnormality.
--- NOTE | ~2025-08-02 | CT_ITS ---
CT ABDOMEN AND PELVIS WITHOUT CONTRAST Clinical History: abdominal pain, nausea and vomiting Comparison: CT abdomen pelvis without contrast 06/04/2025 Technique: Unenhanced axial images lung bases to symphysis pubis Coronal, sagittal reformats CT images acquired with automatic exposure control for dose reduction DLP: 718 mGy-cm Findings: Without intravenous contrast, sensitivity for detecting visceral parenchymal abnormalities decreased. Lung bases: Clear. Visualized heart and pericardium: Unremarkable. Liver: Enlarged. Steatosis. Micronodular contour suggesting cirrhosis. Gallbladder: Removed. Spleen: Unremarkable. Pancreas: Unremarkable. Adrenal glands: Unremarkable. Kidneys: Right kidney- No hydronephrosis. Tiny stone. Left kidney- No hydronephrosis. No renal stones. Distal esophagus/stomach: Unremarkable. Small bowel loops: Normal caliber and wall thickness. Colon: Diverticula. Normal caliber and wall thickness. Normal RLQ appendix. Nodes: No enlarged nodes. Peritoneum: No ascites. No free intraperitoneal air. Urinary bladder: Unremarkable. Uterus: Removed. Adnexa: No masses. Bones: No acute bony abnormality. Soft tissues: Small umbilical hernia with fat. Unopacified abdominal aorta: No aneurysmal dilatation. IMPRESSION: 1. No acute abnormality. 2. Additional findings as above. Reviewed, dictated and finalized at location R. COMM[employer]INTER
[2025-08-02 18:11] VITALS: BP 124/65; PULSE 109; RESP 20; TEMP 36.4; O2SAT 95
--- NOTE | 2025-08-02 19:04 | ECG_ITS ---
Test Date: 2025-08-02 19:10:14 Measurements Intervals [place] Rate: 69 P: 42 [place]: 172 QRS: 3 QRSD: 88 T: 30 QT: 453 QTc: 487 Interpretive Statements SINUS RHYTHM DELAYED PRECORDIAL R/S TRANSITION VOLTAGE CRITERIA FOR LVH BORDERLINE T WAVE ABNORMALITY- ANTERIOR LEADS BORDERLINE ECG Compared to ECG 03/12/2025 09:51:59 HEART RATE HAS DECREASED Electronically Signed On 08-03-2025 05:47:00 OSTEOPATHIC RESIDENT by Zander Steiner D.O.
[2025-08-02 19:16] LABS: Hematocrit 33.5 % (37.0-47.0); Hemoglobin 11.5 g/dL (12.0-15.0); Immature Granulocyte Percent A 0.2 % (0-0.5); Lymphocytes Absolute Auto 5.15 K/mm3 (0.9-3.2); Mean Corpuscular HGB Conc 34.3 g/dl (32-36); Mean Corpuscular Hemoglobin 29.9 pg (26-34); Mean Corpuscular Volume 87.0 fl (80-100); Nucleated Red Blood Cells Absolute Auto 0.000 K/mm3 (0.0-0.012); Nucleated Red Blood Cells Perc 0.0 % (0.0-0.2); Platelet Count Result 267 k/mm3 (150-375); Red Blood Count 3.85 M/mm3 (4.2-5.4); White Blood Count 9.9 K/mm3 (4.5-10.0)
[2025-08-02 19:32] LABS: Alanine Aminotransferase 65 U/L (6-35); Albumin Level 3.2 g/dL (3.5-5.1); Alkaline Phosphatase 120 U/L (38-126); Anion Gap 7 mmol/L (4-12); Aspartate Amino Transferase 92 U/L (14-36); Bilirubin,Total 1.2 mg/dL (0.2-1.3); Blood Urea Nitrogen 6 mg/dL (7-17); Calcium 8.6 mg/dL (8.4-10.2); Carbon Dioxide 25 mmol/L (22-30); Chloride 103 mmol/L (98-107); Estimated CRCL calculation 43 ml/min; Estimated Glomerular Filt Rate 54; Glucose 126 mg/dL (65-110); Potassium 3.0 mmol/L (3.4-5.0); Sodium 135 mmol/L (137-145); Total Protein 7.0 g/dL (6.3-8.2)
--- OUTSIDE RECORDS SUMMARY | 2025-08-02 19:33 | XMS_ITS | Encounter Summary ---
Author Organization [facility] Address [facility] [place] [address] Care Team Providers Care Highway Maintenance Worker Name Role Phone Mario Alberto Murray MD Primary Care Provider [phone] Prabha Dotson PA-C Primary Care Provider [phone] Encounter Details Date Type Department Care Team (Late st Contact Info) Description 11/30/2015 Abstract [facility] CONVERSION [address] [place] [address] , Generic Conversion, Social History Tobacco Use [...] Rule Out 10/03/2021 10/03/2021 10/03/2021 10:02 PM HEAVY DUTY MECHANIC FARM EQUIPMENT COVID-19 Confirmed 10/03/2021 10/03/2021 12:32 AM HEAVY DUTY MECHANIC FARM EQUIPMENT COVID-19 Rule Out 08/08/2023 08/08/2023 08/08/2023 10:12 AM HEAVY DUTY MECHANIC FARM EQUIPMENT COVID-19 Confirmed 08/08/2023 08/08/2023 12:32 AM HEAVY DUTY MECHANIC FARM EQUIPMENT COVID-19 Rule Out 10/05/2024 10/05/2024 10/05/2024 2:42 PM HEAVY DUTY MECHANIC FARM EQUIPMENT documented as of this encounter Care Teams Highway Maintenance Worker Relationship Specialty Start Date End Date Mario Alberto Murray MD PCP - General INTERNAL MEDICINE 04/03/21 08/07/23 Prabha Dotson PA-C [address] [place] [address] [address] [place] [address] PCP - General PHYSICIAN NBA PLAYER 08/08/23 documented as of this encounter
--- OUTSIDE RECORDS SUMMARY | 2025-08-02 19:33 | XMS_ITS | Clinical Summary ---
Author Organization [facility] Address [address] [place] [address] Care Team Providers Care Winding Rack Operator Name Role Phone Prabha Dotson PA-C Primary Care Provider [phone] Allergies Active Allergy Reactions Criticality Noted Date [...] Comments Blood Pressure 160/66 10/05/2024 3:19 PM CLINIC DIRECTOR Pulse 70 10/05/2024 3:19 PM CLINIC DIRECTOR Temperature 37.2 C (98.9 F) 10/05/2024 3:19 PM CLINIC DIRECTOR Respiratory Rate 18 10/05/2024 3:19 PM CLINIC DIRECTOR Oxygen Saturation 99% 10/05/2024 3:19 PM CLINIC DIRECTOR Inhaled Oxygen Concentration - - Weight 101 kg (222 lb 10.6 oz) 10/05/2024 2:06 P M CLINIC DIRECTOR Height 157.5 cm (5' 2) 10/05/2024 2:06 PM CLINIC DIRECTOR Body Mass Index 40.73 10/05/2024 2:06 PM CLINIC DIRECTOR Plan of Treatment Health Maintenance Due Date [...] this topic Insurance MEDICARE AETNA Care Teams Winding Rack Operator Relationship Specialty Start Date End Date Prabha Dotson PA-C [address] [place], [place] [address] [place] [address] PCP - General PHYSICIAN PIG MACHINE OPERATOR 08/08/23
--- OUTSIDE RECORDS SUMMARY | 2025-08-02 19:33 | XMS_ITS | Patient Health Record ---
Author Organization [facility] Address [address] [facility] [address] [place] [address] Care Team Providers Care Analytical Data Miner Name Role Phone Amy Spears Unavailable [phone] Reason For Referral No Information Medications Medication [...] Coverage End Date [place] [address] [place] [phone] [id number] ELINOR MARC Self - patient is the insured Aetna Medicare Supplement [address] [place] [address] [id number] MAGNOLIAELINOR MISTRY Self - patient is the insured Medical (General) History Surgical History Surgery Date(Month/Year) Hysterectomy/revise vagina (13584) Removal of gallbladder (78022)
[2025-08-02 19:39] LABS: Lipase 56 U/L (23-300); Magnesium 1.7 mg/dL (1.6-2.3)
[2025-08-02] MEDS: SODIUM CHLORIDE 0.9% IV 1,000 ML 999 ML IV CONT (19:46)
--- NOTE | 2025-08-02 20:11 | ED.GENADULT ---
HPI - General Adult General Chief complaint: Nausea/Vomiting/Diarrhea Stated complaint: vomiting Time Seen by Provider: 08/02/25 19:11 History of Present Illness HPI narrative: Patient is a 7-year-old female who presents emergency department with chief complaint of nausea vomiting the patient states that she has been treated for a infection in her intestines reports that she is taking antibiotics and reports he started having nausea vomiting and reports she has been able to keep anything down the patient reports she feels very weak and her stomach is bothering her as she has not eaten all day Related Data Home Medications ?Medication ?Instructions ?Recorded ?Confirmed ?Last Taken ?Type mjlixdbdmmfe-dgktozkw-igneg acid 1 cap PO DAILY 07/05/20 07/28/25 07/16/25 History 400 mcg-vitamin K 80 mcg capsule (Multi For Her 50 Plus) Allergies Allergy/AdvReac Type Severity Reaction Status Date / Time iodine Allergy Intermediate SWELLING Verified 07/28/25 09:14 Sulfa (Sulfonamide Allergy Intermediate hives Verified 07/28/25 09:14 Antibiotics) shellfish derived Allergy Mild Swelling Verified 07/28/25 09:14 of Lip/Tongue/Throat amlodipine AdvReac Other Verified 07/28/25 09:14 Review of Systems Review of Systems: A 10 system review of systems was completed on the patient and is negative except for what is stated in the HPI. Nursing and ancillary documentation was reviewed. PMFSH Past Medical History Medical History Helicobacter positive gastritis MDS (myelodysplastic syndrome) Osteoporosis Hepatic steatosis Depression Arthritis Hyperglycemia Arthritis of finger of left hand Trigger finger, left little finger Surgical History Surgical History History of elbow surgery ORIF History of tonsillectomy History of total hysterectomy with bilateral salpingo-oophorectomy (BSO) History of cholecystectomy Family History Family History Sibling Diabetes mellitus Malignant neoplasm of prostate Mother Family history of suicide Father Family history of Alzheimer's disease Social History Social History Social History: 03/22/25 somewhat confident with medical forms Smoking status: Unknown if ever smoked Second hand tobacco smoke exposure: No Alcohol intake: never Substance use: never Substance use type: does not use Lack of Transportation: No Lack of Food: Never True Current Housing: I Have Housing Concerned About Future Housing: No Difficulty Paying Gas/Electric Bills: No Difficulty Paying for Meds: No Currently Unemployed: No Education: Trade/Vocational Certificate Difficulty w/ Childcare or Family Care: No Living arrangements: with family Occupation/Education: retired Gender identity (if verbalized by the patient): Female Sexual Orientation (if Verbalized by the Patient): Straight or Heterosexual Spiritual care concerns: No Exam Narrative: GENERAL: Well-appearing, well-nourished, and in no acute distress. HEAD: Normocephalic, atraumatic. EYES: PERRLA and EOMI. ENT: Nares clear, no rhinorrhea or epistaxis. Mucous membranes dry. NECK: Supple. CHEST: Clear to auscultation. No respiratory distress. HEART: Regular rate and rhythm. No murmur heard. Normal peripheral pulses. ABDOMEN: Soft, mild tenderness to palpation, nondistended, normal active bowel sounds. EXTREMITIES: Normal range of motion. No edema. SKIN: Warm, dry, no rash. NEURO: No focal deficits. Alert and oriented x3. PSYCH: Normal mood and affect. Course Vital Signs Vital signs: Vital Signs Temperature 36.4 C 08/02/25 18:11 Pulse Rate 109 H 08/02/25 18:11 Respiratory Rate 20 08/02/25 18:11 Blood Pressure 124/65 08/02/25 18:11 Pulse Oximetry 95 08/02/25 18:11 Oxygen Delivery Room Air 08/02/25 18:11 Temperature 36.4 C 08/02/25 18:11 Pulse Rate 100 08/02/25 22:16 Respiratory Rate 20 08/02/25 22:16 Blood Pressure 106/65 08/02/25 22:16 Pulse Oximetry 96 08/02/25 22:16 Oxygen Delivery Room Air 08/02/25 18:11 Medical Decision Making [facility] Narrative Medical decision making narrative: Differential diagnosis includes intra-abdominal infection, dehydration, electrolyte abnormality, bowel obstruction, Laboratory studies were obtained on the patient showed a white count of 9.9 hemoglobin was 11.5 electrolytes showed a potassium at 3.0 BUN was 6 and creatinine was 1.02 magnesium 1.7 lipase was 56 urinalysis showed 1+ protein 1+ ketones 2+ leuks 21-50 white blood cells few squamous and 1+ bacteria. Chest x-ray showed no focal infiltrate CT scan showed no acute abnormality The case was discussed with the hospitalist patient received further care the patient states Vital Signs Vital Signs: Vital Signs Temperature 36.4 C 08/02/25 18:11 Pulse Rate 109 H 08/02/25 18:11 Respiratory Rate 20 08/02/25 18:11 Blood Pressure 124/65 08/02/25 18:11 Pulse Oximetry 95 08/02/25 18:11 Oxygen Delivery Room Air 08/02/25 18:11 Temperature 36.4 C 08/02/25 18:11 Pulse Rate 100 08/02/25 22:16 Respiratory Rate 20 08/02/25 22:16 Blood Pressure 106/65 08/02/25 22:16 Pulse Oximetry 96 08/02/25 22:16 Oxygen Delivery Room Air 08/02/25 18:11 Lab Data 08/02/25 19:11 08/02/25 19:11 Labs: Lab Results 08/02/25 08/02/25 08/02/25 Range/Units 19:06 19:11 20:15 WBC 9.9 (4.5-10.0) K/mm3 RBC 3.85 L (4.2-5.4) M/mm3 Hgb 11.5 L (12.0-15.0) g/dL Hct 33.5 L (37.0-47.0) % MCV 87.0 (80-100) fl MCH 29.9 (26-34) pg MCHC 34.3 (32-36) g/dl RDW 12.8 (11.5-14.5) % Plt Count 267 (150-375) k/mm3 MPV 9.9 (7.4-10.4) fl Immature Gran % (Auto) 0.2 (0-0.5) % Neut % (Auto) 38.6 L (45.5-73.1) % Lymph % (Auto) 51.9 H (18.3-44.2) % [place] % (Auto) 7.1 (2.6-8.5) % Eos % (Auto) 1.5 (0-4.4) % Baso % (Auto) 0.7 (0.2-1.2) % Lymph # (Auto) 5.15 H (0.9-3.2) K/mm3 [place] # (Auto) 0.7 H (0.1-0.6) K/mm3 Eos # (Auto) 0.2 (0-0.3) K/mm3 Baso # (Auto) 0.1 (0.0-0.1) K/mm3 Abs Immat Gran (auto) 0.02 (0.00-0.031) K/mm3 Absolute Neuts (auto) 3.8 (1.3-6.7) K/mm3 Absolute Nucleated RBC 0.000 (0.0-0.012) K/mm3 Nucleated RBC % 0.0 (0.0-0.2) % Sodium 135 L (137-145) mmol/L Potassium 3.0 L (3.4-5.0) mmol/L Chloride 103 (98-107) mmol/L Carbon Dioxide 25 (22-30) mmol/L Anion Gap 7 (4-12) mmol/L BUN 6 L (7-17) mg/dL Creatinine 1.02 H (0.7-1.0) mg/dL Estim Creat Clear Calc 43 ml/min Estimated GFR 54 L (59 - ) Glucose 126 H (65-110) mg/dL POC Capillary Glucose 126 H (65-105) mg/dl Lactic Acid 1.5 (0.7-2.0) mmol/L Calcium 8.6 (8.4-10.2) mg/dL Magnesium 1.7 (1.6-2.3) mg/dL Total Bilirubin 1.2 (0.2-1.3) mg/dL AST 92 H (14-36) U/L ALT 65 H (6-35) U/L Alkaline Phosphatase 120 (38-126) U/L Total Protein 7.0 (6.3-8.2) g/dL Albumin 3.2 L (3.5-5.1) g/dL Lipase 56 (23-300) U/L Urine Color (Yellow) Urine Appearance (Clear) Urine pH (5.0-9.0) Ur Specific [place] (1.001-1.035) Urine Protein (Negative) mg/dL Urine Glucose (UA) (Negative) mg/dL Urine Ketones (Negative) mg/dL Ur Blood (Man) (Negative) Urine Nitrate (Negative) Urine Bilirubin (Negative) Urine Urobilinogen (<2.0) mg/dL Add Ur Microanalysis Leukocyte Esterase Rfl (Negative) KRYSTLE/UL Urine RBC (0-2) /hpf Urine WBC (0-3) /hpf Ur Squamous Epith Cells (Few) /hpf Urine Bacteria /hpf Urine Casts 08/02/ Range/Units 22:57 WBC (4.5-10.0) K/mm3 RBC (4.2-5.4) M/mm3 Hgb (12.0-15.0) g/dL Hct (37.0-47.0) % MCV (80-100) fl MCH (26-34) pg MCHC (32-36) g/dl RDW (11.5-14.5) % Plt Count (150-375) k/mm3 MPV (7.4-10.4) fl Immature Gran % (Auto) (0-0.5) % Neut % (Auto) (45.5-73.1) % Lymph % (Auto) (18.3-44.2) % [place] % (Auto) (2.6-8.5) % Eos % (Auto) (0-4.4) % Baso % (Auto) (0.2-1.2) % Lymph # (Auto) (0.9-3.2) K/mm3 [place] # (Auto) (0.1-0.6) K/mm3 Eos # (Auto) (0-0.3) K/mm3 Baso # (Auto) (0.0-0.1) K/mm3 Abs Immat Gran (auto) (0.00-0.031) K/mm3 Absolute Neuts (auto) (1.3-6.7) K/mm3 Absolute Nucleated RBC (0.0-0.012) K/mm3 Nucleated RBC % (0.0-0.2) % Sodium (137-145) mmol/L Potassium (3.4-5.0) mmol/L Chloride (98-107) mmol/L Carbon Dioxide (22-30) mmol/L Anion Gap (4-12) mmol/L BUN (7-17) mg/dL Creatinine (0.7-1.0) mg/dL Estim Creat Clear Calc ml/min Estimated GFR (59 - ) Glucose (65-110) mg/dL POC Capillary Glucose (65-105) mg/dl Lactic Acid (0.7-2.0) mmol/L Calcium (8.4-10.2) mg/dL Magnesium (1.6-2.3) mg/dL Total Bilirubin (0.2-1.3) mg/dL AST (14-36) U/L ALT (6-35) U/L Alkaline Phosphatase (38-126) U/L Total Protein (6.3-8.2) g/dL Albumin (3.5-5.1) g/dL Lipase (23-300) U/L Urine Color Dark yellow (Yellow) Urine Appearance Cloudy H (Clear) Urine pH 6.0 (5.0-9.0) Ur Specific [place] 1.020 (1.001-1.035) Urine Protein 1+ H (Negative) mg/dL Urine Glucose (UA) Negative (Negative) mg/dL Urine Ketones 1+ H (Negative) mg/dL Ur Blood (Man) 1+ H (Negative) Urine Nitrate Negative (Negative) Urine Bilirubin 2+ H (Negative) Urine Urobilinogen 1.0 (<2.0) mg/dL Add Ur Microanalysis Reviewed Leukocyte Esterase Rfl 2+ H (Negative) KRYSTLE/UL Urine RBC 6-10 H (0-2) /hpf Urine WBC 21-50 H (0-3) /hpf Ur Squamous Epith Cells Few (Few) /hpf Urine Bacteria 1+ H /hpf Urine Casts 6-10 Discharge Plan Discharge Clinical Impression: Nausea and vomiting, Hypokalemia, Hypomagnesemia, Abnormal urinalysis Patient Disposition: Still a Patient Condition: Stable Patient Language: Guinean Prescriptions: No Action Multi For Her 50 Plus 400-80 mcg Capsule 1 cap PO DAILY sertraline 100 mg tablet 100 mg PO DAILY Qty: 90 1RF montelukast 10 mg tablet 10 mg PO DAILY Qty: 90 1RF losartan 25 mg tablet 25 mg PO DAILY Qty: 90 1RF Patient Comments: takes at bedtime albuterol 90 mcg-budesonide 80 mcg/actuation HFA aerosol inhaler 90-80 mcg/actuation HFA aerosol inhaler 0RF albuterol sulfate 2.5 mg /3 mL (0.083 %) solution for nebulization 2.5 mg inhalation Q6H Qty: 75 0RF benzonatate 100 mg capsule 100 mg PO TID PRN (Reason: cough) Qty: 30 0RF metoclopramide HCl 5 mg tablet See Rx Instructions .ROUTE .COMPLEX Qty: 30 0RF Dose Instruction: TAKE 1 TABLET BY MOUTH EVERY 6 HOURS NEEDED FOR NAUSEA AND VOMITING Rx Instructions: TAKE 1 TABLET BY MOUTH EVERY 6 HOURS NEEDED FOR NAUSEA AND VOMITING amoxicillin 500 mg capsule 1,000 mg PO Q12H 14 Days Qty: 56 0RF tetracycline 500 mg tablet 500 mg PO Q12H 14 Days Qty: 28 0RF pantoprazole 40 mg tablet,delayed release (DR/EC) See Rx Instructions .ROUTE .COMPLEX Qty: 180 1RF Dose Instruction: TAKE 1 TABLET BY MOUTH TWICE A DAY Rx Instructions: TAKE 1 TABLET BY MOUTH TWICE A DAY ondansetron HCl 4 mg tablet 4 mg PO Q8H PRN (Reason: nausea and vomiting) Qty: 60 0RF Follow-up/Referrals: Prabha Dotson PA-C [Primary Care Provider, Family Practice] Time of Disposition: 00:01
[2025-08-02] MEDS: KCL 20 MEQ/SW 100 ML 100 ML 50 MEQ IVPB (20:26)
[2025-08-02 22:13] VITALS: BP 130/68; PULSE 68; RESP 18; O2SAT 98
[2025-08-02 22:15] VITALS: BP 135/69; PULSE 82; RESP 15; O2SAT 97
[2025-08-02 22:16] VITALS: BP 106/65; PULSE 100; RESP 20; O2SAT 96
[2025-08-02 23:18] LABS: Add Urine Microscopic? YES; Appearance Urine Cloudy (Clear); Glucose Urine UA Negative (Negative); Leukocyte Esterase Ur 2+ LEU/UL (Negative); Need Manual Microscopic Reviewed; Nitrate Urine Negative (Negative); Specific Grav Ur 1.020 (1.001-1.035)
[2025-08-03] VITALS (9 sets, daily range): BP systolic 108–127; BP diastolic 48–63; PULSE 60–78; RESP 15–18; TEMP 36.6–37.1; O2SAT 97–99; BMI 30.6
--- NOTE | 2025-08-03 00:25 | PM.IMHP ---
H&P: HPI History of Present Illness Date/Time: 08/03/25 00:25 Chief Complaint: Nausea vomiting and diarrhea. Narrative: This is a 70-year-old female patient who came to the emergency today with intractable nausea vomiting and diarrhea. The patient was diagnosed with H pylori and has been on quad therapy for the HPI. She stated that she also has a history of GERD. The patient stated that she has been unable to keep down any fluids today. She did not notice any blood in her stool. H&H is 11.5 and 33.5. Sodium is 135 and potassium is 3.0. BUN is 6 and creatinine is 1.02 with a GFR 54. Glucose is 126. Lactic was normal 1.5. AST 92, ALT 65 and albumin 3.2. Urine is cloudy with 1+ protein, 1+ ketones, 1+ blood, 2+ urine bilirubin, 2+ leukocyte esterase, rbc's 6-10, wbc's 21-50, and urine bacteria 1+. Chest x-ray was read as no acute cardiopulmonary abnormality. As per ED physician CT scan reveals no acute abnormality. The patient was given IV fluids, Protonix, ceftriaxone, Zofran, K rider, and magnesium. The patient is being admitted to observation status on the date of service of 08/03/2025. Review of Systems Constitutional: Constitutional: Reports as per HPI and Reports no additional constitutional complaints Eyes: Eyes: Reports as per HPI and Reports no additional eye complaints ENT: Reports no additional ear, nose, mouth, and throat complaints and Reports Normal hearing present Cardiovascular: Cardiovascular: Reports no additional cardiovascular complaints Respiratory: Respiratory: Reports as per HPI and Reports no additional respiratory complaints Gastrointestinal: Gastrointestinal: Reports as per HPI and Reports no additional gastrointestinal complaints Genitourinary: Genitourinary: Reports no additional female genitourinary complaints Musculoskeletal: Musculoskeletal: Reports no additional musculoskeletal complaints Integumentary/Breasts: Skin/Breast: Reports system reviewed and no additional complaints, except as docu Neurologic: Reports no additional neurologic complaints and Reports Normal hearing present Psychiatric: Psychiatric: Reports no additional psychiatric complaints and Reports as per HPI Hematologic/Lymphatic: Hematologic/Lymphatic: Reports no additional hematologic/lymphatic complaints Allergic/Immunologic: Allergic/Immunologic: Reports no additional allergic/immunologic complaints [facility] Past Medical History Medical History (Updated 08/03/25 @ 13:19 by Laury Ramsey APRN) Intractable nausea and vomiting Asthma Helicobacter positive gastritis MDS (myelodysplastic syndrome) Osteoporosis Hepatic steatosis Depression Arthritis Hyperglycemia Arthritis of finger of left hand Trigger finger, left little finger Surgical History Surgical History (Updated 08/03/25 @ 00:29 by Jacki Waggoner APRN) H/O arthroscopic knee surgery right knee H/O left wrist surgery History of elbow surgery ORIF History of tonsillectomy History of total hysterectomy with bilateral salpingo-oophorectomy (BSO) History of cholecystectomy Family History Family History Sibling Diabetes mellitus Malignant neoplasm of prostate Mother Family history of suicide Father Family history of Alzheimer's disease Social History Social History (Updated 08/03/25 @ 03:23 by Jacki Waggoner APRN) Social History: 03/22/25 somewhat confident with medical forms. She lives with Skip who is her durable power immigration attorney for healthcare. She has 2 children. She is retired. code status: Full Code Smoking status: Never smoker Second hand tobacco smoke exposure: No Alcohol intake: never Substance use: never Substance use type: does not use Lack of Transportation: No Lack of Food: Never True Current Housing: I Have Housing Concerned About Future Housing: No Difficulty Paying Gas/Electric Bills: No Difficulty Paying for Meds: No Currently Unemployed: No Education: High School Diploma/GED Difficulty w/ Childcare or Family Care: No Living arrangements: with family Occupation/Education: retired Gender identity (if verbalized by the patient): Female Sexual Orientation (if Verbalized by the Patient): Straight or Heterosexual Spiritual care concerns: No Meds Home Medications and Allergies Home Medications ?Medication ?Instructions ?Recorded ?Confirmed ?Type [id number]-[id number]-gnssg acid 1 cap PO DAILY 07/05/20 08/03/25 History 400 mcg-vitamin K 80 mcg capsule (Multi For Her 50 Plus) losartan 25 mg tablet 25 mg PO DAILY #90 tabs 03/05/25 08/03/25 Rx montelukast 10 mg tablet 10 mg PO DAILY #90 tabs 03/05/25 08/03/25 Rx sertraline 100 mg tablet 100 mg PO DAILY #90 tabs 03/05/25 08/03/25 Rx albuterol 90 mcg-budesonide 80 90-80 mcg/actuation Hfa Aerosol 03/18/25 08/03/25 Sample mcg/actuation HFA aerosol inhaler Inhaler#1 Samples (Airsupra) tetracycline 500 mg tablet 500 mg PO Q12H 2 weeks #28 tabs 07/22/25 08/03/25 Rx pantoprazole 40 mg tablet,delayed See Rx Instructions .Route 07/28/25 08/03/25 Rx release .COMPLEX #180 tabs ondansetron HCl 4 mg tablet 4 mg PO Q8H PRN nausea and 07/31/25 08/03/25 Rx vomiting #60 tabs albuterol sulfate 2.5 mg/3 mL 2.5 mg inhalation Q6H PRN 08/03/25 08/03/25 History (0.083 %) solution for nebulization shortness of breath or wheezing Allergies Allergy/AdvReac Type Severity Reaction Status Date / Time iodine Allergy Intermediate SWELLING Verified 08/03/25 01:27 Sulfa (Sulfonamide Allergy Intermediate hives Verified 08/03/25 01:27 Antibiotics) shellfish derived Allergy Mild Swelling Verified 08/03/25 01:27 of Lip/Tongue/Throat Vital Signs Vital Signs - 24 hr 08/02/25 18:11 08/02/25 22:13 08/02/25 22:15 Temperature 97.6 F Pulse Rate 109 H 68 82 Respiratory Rate 20 18 15 Blood Pressure 124/65 130/68 135/69 Pulse Oximetry 95 98 97 Oxygen Delivery Room Air 08/02/25 22:16 Temperature Pulse Rate 100 Respiratory Rate 20 Blood Pressure 106/65 Pulse Oximetry 96 Oxygen Delivery Exam Const: General: cooperative, healthy appearing, no acute distress, well developed, awake, Physically active and average body habitus Orientation/consciousness: oriented to person, oriented to place, oriented to time and patient oriented x3 Limitations: no limitations HENMT: Head: normal to inspection, No palpable skull fracture present, normocephalic and atraumatic Eyes: General: appearance normal, both eyes and all related structures Alignment and Position: alignment normal Periorbital: periorbital findings normal Eyelids: eyelids normal Neck: Neck: normal visual inspection, full ROM and no lymphadenopathy Chest: Chest palpation & inspection: normal inspection of the chest Resp: Effort & Inspection: normal respiratory effort Auscultation: clear to auscultation bilaterally Percussion: percussion normal Cardio: Palpation: normal PMI Rate: regular rate Rhythm: regular rhythm Heart sounds: S1 normal heart sound present and S2 normal heart sound present Peripheral pulses: Peripheral pulses 2+ throughout GI: Inspection: normal to inspection GI Palp: Yes Soft to palpation and Yes Tenderness to palpation present (GI) Percussion: Yes normal to percussion Auscultation: normal bowel sounds Rectal Exam: deferred : General: Yes no CVA tenderness Back/Spine/Pelvis: Back: no CVA tenderness Cervical Spine: cervical ROM normal Thoracic/Lumbar Spine: thoracic and lumbar spine normal to inspection Pelvis: no pain with anterior-posterior compression Skin: General skin exam: normal color Lesions: no lesions Rashes: rashes noted (Under breast) Trauma: no lacerations or abrasions Wounds: no wounds Hair: normal Nails: normal Other: Erythematous blanchable rash under both breasts. Neuro: General: oriented to person, oriented to place, oriented to time and patient oriented x3 Cranial nerves: Yes Equal, round and reactive pupils present and Yes Normal hearing present Cognition (Neuro): normal cognition Speech: normal speech Motor exam (neuro): 5/5 motor strength present throughout Sensory Exam: normal sensation Extrem: General: normal to inspection Right upper extremity: normal to inspection and shoulder/upper arm Left upper extremity: normal to inspection and shoulder/upper arm Right lower extremity: normal to inspection Left lower extremity: normal to inspection Psych: Appearance: grossly normal Mental Status: mental status grossly normal Speech and movement: Normal speech and movement present Affect: normal affect Attitude: cooperative Thought process: Normal thought process present Thought content: Yes Normal thought content present Insight: Good insight present (Psych) Judgement: Good judgement present (Psych) H&P: Results Labs Labs: Short CBC 08/02/25 Range/Units 19:11 WBC 9.9 (4.5-10.0) K/mm3 Hgb 11.5 L (12.0-15.0) g/dL Hct 33.5 L (37.0-47.0) % Plt Count 267 (150-375) k/mm3 BMP 08/02/25 19:11 Sodium 135 L Potassium 3.0 L Chloride 103 Carbon Dioxide 25 BUN 6 L Creatinine 1.02 H Glucose 126 H Calcium 8.6 Liver Function 08/02/25 Range/Units 19:11 Total Bilirubin 1.2 (0.2-1.3) mg/dL AST 92 H (14-36) U/L ALT 65 H (6-35) U/L Alkaline Phosphatase 120 (38-126) U/L Albumin 3.2 L (3.5-5.1) g/dL Urine 08/02/25 Range/Units 22:57 Urine Color Dark yellow (Yellow) Urine Appearance Cloudy H (Clear) Urine pH 6.0 (5.0-9.0) Ur Specific [place] 1.020 (1.001-1.035) Urine Protein 1+ H (Negative) mg/dL Urine Glucose (UA) Negative (Negative) mg/dL ECG Interpretation: 69 LA 172 QRSd 88 QT 453 QTc 487 --[place]-- P 42 QRS 3 T 30 SINUS RHYTHM MODERATE VOLTAGE CRITERIA FOR LVH, CONSIDER NORMAL VARIANT [MEETS CRITERIA IN ONE OF: R(aVL), S(V1), R(V5), R(V5/V6)+S(V1)] PROLONGED QT INTERVAL Compared to ECG 03/12/2025 09:51:59 Prolonged QT interval now present Sinus tachycardia no longer present T-wave abnormality no longer present Imaging CT scan - abdomen: Radiologist's impression: Impressions Chest X-Ray 08/02/25 19:49 Impression: No acute cardiopulmonary abnormality. Chest x-ray: Radiologist's impression: Impressions Chest X-Ray 08/02/25 19:49 Impression: No acute cardiopulmonary abnormality. Abdomen/Pelvis CT 08/03/25 07:30 IMPRESSION: 1. No acute abnormality. 2. Additional findings as above. Assessment and Plan Assessment and plan (1) Intractable nausea and vomiting: Code(s): R11.2 - Nausea with vomiting, unspecified Status: Acute Assessment and Plan: -the patient has been on therapy for H pylori. She stated that this is been irritating her stomach. She also has a history of GERD. The patient continued to feel nauseated even though she received Zofran in the emergency room. She also had some electrolyte imbalances as well. She also has UTI. -she is on clear liquids. -CT scan of the abdomen was reported as negative for benign. -continue with antiemetic medication. -continue with IV fluids. -monitor electrolytes and replete as necessary. -continue with IV Protonix. -currently she is on clear liquids. (2) UTI (urinary tract infection): Code(s): N39.0 - Urinary tract infection, site not specified Status: Acute Assessment and Plan: -continue with Rocephin. -blood and urine cultures are pending. positive dysuria (3) Hypokalemia: Code(s): E87.6 - Hypokalemia Status: Acute Assessment and Plan: -her potassium was 3.0 and was replenished -monitor BMP and replenish potassium as necessary. (4) Hypomagnesemia: Code(s): E83.42 - Hypomagnesemia Status: Acute Assessment and Plan: -magnesium was 1.7. Which is low normal and she was replenished in the emergency room. -continue to monitor magnesium level. (5) Helicobacter positive gastritis: Code(s): K29.70 - Gastritis, unspecified, without bleeding; B96.81 - Helicobacter pylori [H. pylori] as the cause of diseases classified elsewhere Status: Acute Assessment and Plan: -continue with tetracycline if patient is able to tolerate. The patient stated that she took her medication for H pylori for 1 week so far but has another week to go. -she has been changed to IV Protonix. (6) Depression: Code(s): F32.A - Depression, unspecified Status: Acute Assessment and Plan: -continue with sertraline if she is able to take p.o. fluids. (7) HTN (hypertension): Qualifiers: Hypertension type: primary hypertension Qualified Code(s): I10 - Essential (primary) hypertension Code(s): I10 - Essential (primary) hypertension Status: Acute Assessment and Plan: -patient's blood pressure is on the soft side 122/61. -resume losartan if blood pressure allows. -monitor BMP (8) Asthma: Code(s): J45.909 - Unspecified asthma, uncomplicated Status: Acute Assessment and Plan: -continue with albuterol treatments p.r.n.. -continue with Singulair (9) Yeast infection: Code(s): B37.9 - Candidiasis, unspecified Status: Acute Assessment and Plan: -miconazole cream (10) Hepatic steatosis: Code(s): K76.0 - Fatty (change of) liver, not elsewhere classified Status: Acute Assessment and Plan: Monitor liver enzymes. May consider GI consult Quality VTE Prophylaxis VTE prophylaxis: mechanical ordered
--- NOTE | 2025-08-03 00:43 | WPCEDHO ---
ED Hand Off Checklist All vitals saved:yes IV Site documented:yes All med administrations documented:yes Triage Note Triage Note Pt to ambulatory co [facility]. Pt said 08/02/25 18:11 she can not keep any fluids and food down. Pt is from alert and oriented x4. Allergies iodine Allergy (Intermediate, Verified 07/28/25 09:14) SWELLING Sulfa (Sulfonamide Antibiotics) Allergy (Intermediate, Verified 07/28/25 09:14) hives shellfish derived Allergy (Mild, Verified 07/28/25 09:14) Swelling of Lip/Tongue/Throat amlodipine Adverse Reaction (Verified 07/28/25 09:14) Other GI upset, Malaise Family History (Last Reviewed 08/02/25 @ 20:12 by Cesar Lim MD) Sibling Diabetes mellitus Malignant neoplasm of prostate Mother Family history of suicide Father Family history of Alzheimer's disease Administered/Completed Medications Discontinued Medications Sodium Chloride (Normal Saline Iv) 1,000 mls @ 999 mls/hr IV CONT .Q1H1M STA Stop: 08/02/25 20:18 Last Infusion: 08/02/25 21:15 Dose: Infused Documented By: W Admin: 08/02/25 19:46 Dose: 999 mls/hr Documented By: ALICIA Potassium Chloride (Kcl 20 Meq/Sw 100 Ml) 100 mls @ 50 mls/hr IVPB ONCE STA Stop: 08/02/25 21:49 Last Admin: 08/02/25 20:26 Dose: 50 mls/hr Documented By: ALICIA Co-signed By: MADISYN Interventions/Assessments IV / Saline Lock, Insert Start: 08/02/25 19:04 Freq: STAT Status: Active Protocol: Document 08/02/25 19:10 [facility] (Rec: 08/02/25 19:10 [facility] [id number]) IV Assessment Peripheral Access Right Hand IV Catheter Access Initiated IV Insertion Date 08/02/25 IV Insertion Time 19:10 Catheter Gauge 18 IV Insertion 1 Attempts Ultrasound Used for No Placement IV Site Assessment WNL IV Care and WNL Maintenance PA: Gastrointestinal Assessment Start: 08/02/25 18:02 Freq: Status: Active Protocol: Document 08/02/25 19:35 [facility] (Rec: 08/02/25 19:35 [facility] [id number]) GI Assessment Gastrointestinal None Symptoms Description Non-Tender Last Vital Signs Temperature 97.6 F 08/02/25 18:11 Pulse Rate 100 08/02/25 22:16 Respiratory Rate 20 08/02/25 22:16 Pulse Oximetry 96 08/02/25 22:16 Blood Pressure 106/65 08/02/25 22:16 Blood Pressure Mean 78 08/02/25 22:16 Blood Pressure Position Standing 08/02/25 22:16 Oxygen Delivery Room Air 08/02/25 18:11 Weight 78.3 kg 08/02/25 18:11 Last Result - Abnormals Only RBC 3.85 M/mm3 (4.2-5.4) L 08/02/25 19:11 Hgb 11.5 g/dL (12.0-15.0) L 08/02/25 19:11 Hct 33.5 % (37.0-47.0) L 08/02/25 19:11 Neut % (Auto) 38.6 % (45.5-73.1) L 08/02/25 19:11 Lymph % (Auto) 51.9 % (18.3-44.2) H 08/02/25 19:11 Lymph # (Auto) 5.15 K/mm3 (0.9-3.2) H 08/02/25 19:11 [place] # (Auto) 0.7 K/mm3 (0.1-0.6) H 08/02/25 19:11 Sodium 135 mmol/L (137-145) L 08/02/25 19:11 Potassium 3.0 mmol/L (3.4-5.0) L 08/02/25 19:11 BUN 6 mg/dL (7-17) L 08/02/25 19:11 Creatinine 1.02 mg/dL (0.7-1.0) H 08/02/25 19:11 Estimated GFR 54 (59-) L 08/02/25 19:11 Glucose 126 mg/dL (65-110) H 08/02/25 19:11 POC Capillary Glucose 126 mg/dl (65-105) H 08/02/25 19:06 AST 92 U/L (14-36) H 08/02/25 19:11 ALT 65 U/L (6-35) H 08/02/25 19:11 Albumin 3.2 g/dL (3.5-5.1) L 08/02/25 19:11 Urine Appearance Cloudy (Clear) H 08/02/25 22:57 Urine Protein 1+ mg/dL (Negative) H 08/02/25 22:57 Urine Ketones 1+ mg/dL (Negative) H 08/02/25 22:57 Ur Blood (Man) 1+ (Negative) H 08/02/25 22:57 Urine Bilirubin 2+ (Negative) H 08/02/25 22:57 Leukocyte Esterase Rfl 2+ KRYSTLE/UL (Negative) H 08/02/25 22:57 Urine RBC 6-10 /hpf (0-2) H 08/02/25 22:57 Urine WBC 21-50 /hpf (0-3) H 08/02/25 22:57 Urine Bacteria 1+ /hpf H 08/02/25 22:57 Most Recent Suicide Severity Rating Suicide Severity Rating NO RISK INDICATED 08/02/25 18:11
[2025-08-03] MEDS: cefTRIAXone 1 GM in SODIUM CHLORIDE 0.9% IV 50 ML 100 ML IVPB (00:56)
--- NOTE | 2025-08-03 01:13 | PC.NURSE ---
iv k has been going (slowed down to 15ml/hr because unable to tolerate at ordered rate. refused to have another iv started until now. see iv documentation.
[2025-08-03] MEDS: SODIUM CHLORIDE 0.9% IV 1,000 ML 125 ML IV CONT ×3 (01:21→20:40)
--- NOTE | 2025-08-03 01:21 | ADMGEN ---
This patient, Rosaura Sarmiento, was admitted to Medical Room 342-01. Patient/family oriented to hospital policies and general routines including ID bracelet, bed and alarms, visiting hours, pain management, procedures, bathroom and other care routines, personal items, smoking policy, room service/diet, and visiting hours. Information on how to activate the Rapid Response Team has been discussed. Patient/Family are encouraged to report perceived risks to care and to ask questions if they do not understand what they are told or what they should do.
[2025-08-03] MEDS: MAGNESIUM SULF 1 GM/D5W 100 ML 1 GM/100 ML BAG IVPB (01:23)
[2025-08-03] MEDS: PROCHLORPERAZINE EDISYLATE 10 MG/2 ML VIAL IV PUSH (01:36)
[2025-08-03 06:02] LABS: Hematocrit 28.7 % (37.0-47.0); Hemoglobin 9.4 g/dL (12.0-15.0); Mean Corpuscular HGB Conc 32.8 g/dl (32-36); Mean Corpuscular Hemoglobin 29.7 pg (26-34); Mean Corpuscular Volume 90.8 fl (80-100); Platelet Count Result 155 k/mm3 (150-375); Red Blood Count 3.16 M/mm3 (4.2-5.4); White Blood Count 5.0 K/mm3 (4.5-10.0)
[2025-08-03 06:19] LABS: Magnesium 2.2 mg/dL (1.6-2.3)
[2025-08-03 06:39] LABS: Anion Gap 0 mmol/L (4-12); Blood Urea Nitrogen 5 mg/dL (7-17); Calcium 7.8 mg/dL (8.4-10.2); Carbon Dioxide 31 mmol/L (22-30); Chloride 104 mmol/L (98-107); Estimated CRCL calculation 56 ml/min; Estimated Glomerular Filt Rate > 60; Glucose 76 mg/dL (65-110); Potassium 2.7 mmol/L (3.4-5.0); Sodium 135 mmol/L (137-145)
--- NOTE | 2025-08-03 08:00 | PM.IMPN ---
Progress Note: A&P Assessment and Plan (1) Intractable nausea and vomiting: Code(s): R11.2 - Nausea with vomiting, unspecified Status: Acute Assessment and Plan: -the patient has been on therapy for H pylori. She stated that this is been irritating her stomach. She also has a history of GERD. The patient continued to feel nauseated even though she received Zofran in the emergency room. She also had some electrolyte imbalances as well. She also has UTI. -she is on full liquids now, advance as tolerated -CT scan of the abdomen was reported as negative for benign. -continue with antiemetic medication. -continue with IV fluids. -monitor electrolytes and replete as necessary. -continue with IV Protonix. -currently she is on clear liquids. (2) UTI (urinary tract infection): Code(s): N39.0 - Urinary tract infection, site not specified Status: Acute Assessment and Plan: -continue with Rocephin. +Dysuria -blood and urine cultures are pending. (3) Hypokalemia: Code(s): E87.6 - Hypokalemia Status: Acute Assessment and Plan: -her potassium was 2.7 this AM and replenished with 40meq IV -monitor BMP and replenish potassium as necessary. (4) Hypomagnesemia: Code(s): E83.42 - Hypomagnesemia Status: Acute Assessment and Plan: -magnesium was 1.7. Which is low normal and she was replenished in the emergency room. -continue to monitor magnesium level. (5) Helicobacter positive gastritis: Code(s): K29.70 - Gastritis, unspecified, without bleeding; B96.81 - Helicobacter pylori [H. pylori] as the cause of diseases classified elsewhere Status: Acute Assessment and Plan: -continue with tetracycline if patient is able to tolerate. The patient stated that she took her medication for H pylori for 1 week so far but has another week to go. -she has been changed to IV Protonix. (6) Depression: Code(s): F32.A - Depression, unspecified Status: Acute Assessment and Plan: -continue with sertraline (7) HTN (hypertension): Qualifiers: Hypertension type: primary hypertension Qualified Code(s): I10 - Essential (primary) hypertension Code(s): I10 - Essential (primary) hypertension Status: Acute Assessment and Plan: -patient's blood pressure is 127/57 this AM -resume losartan if blood pressure allows. -monitor BMP (8) Asthma: Code(s): J45.909 - Unspecified asthma, uncomplicated Status: Acute Assessment and Plan: -continue with albuterol treatments p.r.n.. -continue with Singulair (9) Yeast infection: Code(s): B37.9 - Candidiasis, unspecified Status: Acute Assessment and Plan: -miconazole cream (10) Cirrhosis: Code(s): K74.60 - Unspecified cirrhosis of liver Status: Acute Assessment and Plan: New per pt. -AST/ALT elevated, will continue to trend -Hep panel & lipid panel added for tomorrow AM labs -Pt established with Dr. Oliver BRENNAN, will f/u with him for hepatology referral since none at [place] -Denies drinking etoh or drug IV drug use but does admit to high fat diet Plan Advance diet as tolerated Time Spent With Patient Time: 35 Subjective Date/time seen: 08/03/25 1238 Interval history: Patient resting comfortably in bed upon my arrival. She is currently eating a full liquid diet and is tolerating thus far. Pt reports feeling much better today. Denies ever having diarrhea. Still nauseous. Pending toleration of full liquid diet. +Dysuria. Review of Systems Constitutional: Constitutional: Reports as per HPI and Reports no additional constitutional complaints Eyes: Eyes: Reports as per HPI and Reports no additional eye complaints ENT: Reports system reviewed and no additional complaints, except as documented and Reports Normal hearing present Cardiovascular: Cardiovascular: Reports no additional cardiovascular complaints Respiratory: Respiratory: Reports as per HPI and Reports no additional respiratory complaints Gastrointestinal: Gastrointestinal: Reports as per HPI and Reports no additional gastrointestinal complaints Genitourinary: Genitourinary: Reports no additional female genitourinary complaints Musculoskeletal: Musculoskeletal: Reports no additional musculoskeletal complaints Integumentary/Breasts: Skin/Breast: Reports system reviewed and no additional complaints, except as docu Neurologic: Reports system reviewed and no additional complaints, except as documented and Reports Normal hearing present Psychiatric: Psychiatric: Reports no additional psychiatric complaints and Reports as per HPI Hematologic/Lymphatic: Hematologic/Lymphatic: Reports no additional hematologic/lymphatic complaints Allergic/Immunologic: Allergic/Immunologic: Reports no additional allergic/immunologic complaints Exam Const: General: cooperative, no acute distress and average body habitus Orientation/consciousness: patient oriented x3 HENMT: Head: normocephalic and atraumatic Eyes: General: appearance normal, both eyes and all related structures Pupils: Equal, round and reactive pupils present Neck: Neck: full ROM Resp: Effort & Inspection: normal respiratory effort Auscultation: clear to auscultation bilaterally Cardio: Rate: regular rate Rhythm: regular rhythm Peripheral pulses: Peripheral pulses 2+ throughout GI: GI Palp: No abdominal tenderness Auscultation: normal bowel sounds Skin: General skin exam: rashes (Under breast) Other: Erythematous blanchable rash under both breasts. Neuro: General: patient oriented x3 Sensory Exam: normal sensation Extrem: Left lower extremity: normal to inspection Psych: Appearance: grossly normal Mental Status: mental status grossly normal Objective Data Vital Signs Vital Signs: Vital Signs - 24 hr 08/02/25 18:11 08/02/25 22:13 08/02/25 22:15 Temperature 97.6 F Pulse Rate 109 H 68 82 Respiratory Rate 20 18 15 Blood Pressure 124/65 130/68 135/69 Pulse Oximetry 95 98 97 Oxygen Delivery Room Air 08/02/25 22:16 08/03/25 01:56 08/03/25 03:05 Temperature 98.8 F Pulse Rate 100 73 Respiratory Rate 20 18 Blood Pressure 106/65 122/61 Pulse Oximetry 96 99 Oxygen Delivery Room Air 08/03/25 04:00 08/03/25 06:00 Temperature 98.2 F Pulse Rate 60 65 Respiratory Rate 18 Blood Pressure 127/57 L Pulse Oximetry 97 Oxygen Delivery Intake/Output Intake/Output: Intake & Output 07/31/25 08/01/25 08/02/25 08/03/25 23:59 23:59 23:59 23:59 Intake Total 1000 200 Balance 1000 200 Meds/Results Medications: Active Medications Generic Name Dose Route Start Last Admin Trade Name Freq PRN Reason Stop Dose Admin Albuterol 2.5 mg 08/03/25 03:19 Albuterol Sulfate Neb 2.5 Mg/3 Ml Inh INHALATION Q6H PRN Shortness Of Breath Or Wheezing Sodium Chloride 1,000 mls @ 125 mls/hr 08/02/25 23:55 08/03/25 01:21 Normal Saline Iv IV CONT 125 mls/hr .Q8H [facility]OTTIE Administration Ceftriaxone Sodium 1 gm/ 50 mls @ 100 mls/hr 08/04/25 00:00 Sodium Chloride IVPB Q24H [facility]IE Potassium Chloride 40 meq/ 520 mls @ 130 mls/hr 08/03/25 07:58 Sodium Chloride IVPB 08/03/25 11:57 ONCE ONE Losartan Potassium 25 mg 08/03/25 09:00 Losartan Potassium 25 Mg Tablet PO DAILY [facility] Miconazole Nitrate 1 applic 08/03/25 09:00 Miconazole Nitrate 2% Cream 30 Gm Tube TOPICAL Q12HR [facility] Montelukast Sodium 10 mg 08/03/25 09:00 Montelukast Sodium 10 Mg Tablet PO DAILY [facility] Ondansetron HCl 4 mg 08/02/25 23:55 Ondansetron Inj 4 Mg/2 Ml Vial IV PUSH Q4H PRN Nausea Pantoprazole Sodium 40 mg 08/03/25 09:00 Pantoprazole Sodium Iv 40 Mg Vial IV PUSH QAM [facility] Sertraline HCl 100 mg 08/03/25 09:00 Sertraline Hcl 50 Mg Tablet PO DAILY [facility] Tetracycline HCl 500 mg 08/03/25 09:00 Tetracycline Hcl 250 Mg Capsule PO 08/05/25 21:01 Q12HR [facility] Radiology Results: ITS Impressions Chest X-Ray 08/02/25 19:49 Impression: No acute cardiopulmonary abnormality. Abdomen/Pelvis CT 08/03/25 07:30 IMPRESSION: 1. No acute abnormality. 2. Additional findings as above. Labs Labs: Laboratory Results - last 24 hr 08/02/25 08/02/25 08/02/25 19:06 19:11 20:15 WBC 9.9 RBC 3.85 L Hgb 11.5 L Hct 33.5 L MCV 87.0 MCH 29.9 MCHC 34.3 RDW 12.8 Plt Count 267 MPV 9.9 Immature Gran % (Auto) 0.2 Neut % (Auto) 38.6 L Lymph % (Auto) 51.9 H Bradford % (Auto) 7.1 Eos % (Auto) 1.5 Baso % (Auto) 0.7 Lymph # (Auto) 5.15 H Bradford # (Auto) 0.7 H Eos # (Auto) 0.2 Baso # (Auto) 0.1 Abs Immat Gran (auto) 0.02 Absolute Neuts (auto) 3.8 Absolute Nucleated RBC 0.000 Nucleated RBC % 0.0 Sodium 135 L Potassium 3.0 L Chloride 103 Carbon Dioxide 25 Anion Gap 7 BUN 6 L Creatinine 1.02 H Estim Creat Clear Calc 43 Estimated GFR 54 L Glucose 126 H POC Capillary Glucose 126 H Lactic Acid 1.5 Calcium 8.6 Magnesium 1.7 Total Bilirubin 1.2 AST 92 H ALT 65 H Alkaline Phosphatase 120 Total Protein 7.0 Albumin 3.2 L Lipase 56 Urine Color Urine Appearance Urine pH Ur Specific [place] Urine Protein Urine Glucose (UA) Urine Ketones Ur Blood (Man) Urine Nitrate Urine Bilirubin Urine Urobilinogen Add Ur Microanalysis Leukocyte Esterase Rfl Urine RBC Urine WBC Ur Squamous Epith Cells Urine Bacteria Urine Casts 08/02/25 08/03/25 08/03/25 22:57 04:40 04:41 WBC 5.0 RBC 3.16 L Hgb 9.4 L Hct 28.7 L MCV 90.8 MCH 29.7 MCHC 32.8 RDW 12.8 Plt Count 155 MPV 10.5 H Immature Gran % (Auto) Neut % (Auto) Lymph % (Auto) Bradford % (Auto) Eos % (Auto) Baso % (Auto) Lymph # (Auto) Bradford # (Auto) Eos # (Auto) Baso # (Auto) Abs Immat Gran (auto) Absolute Neuts (auto) Absolute Nucleated RBC Nucleated RBC % Sodium 135 L Potassium 2.7 L* Chloride 104 Carbon Dioxide 31 H Anion Gap 0 L BUN 5 L Creatinine 0.88 Estim Creat Clear Calc 56 Estimated GFR > 60 Glucose 76 POC Capillary Glucose Lactic Acid Calcium 7.8 L Magnesium 2.2 Total Bilirubin AST ALT Alkaline Phosphatase Total Protein Albumin Lipase Urine Color Dark yellow Urine Appearance Cloudy H Urine pH 6.0 Ur Specific [place] 1.020 Urine Protein 1+ H Urine Glucose (UA) Negative Urine Ketones 1+ H Ur Blood (Man) 1+ H Urine Nitrate Negative Urine Bilirubin 2+ H Urine Urobilinogen 1.0 Add Ur Microanalysis Reviewed Leukocyte Esterase Rfl 2+ H Urine RBC 6-10 H Urine WBC 21-50 H Ur Squamous Epith Cells Few Urine Bacteria 1+ H Urine Casts 6-10 Quality VTE Prophylaxis VTE prophylaxis: mechanical ordered
[2025-08-03] MEDS: ONDANSETRON INJ 4 MG/2 ML VIAL IV PUSH ×3 (08:15→17:45)
[2025-08-03] MEDS: POTASSIUM CHLORIDE INJ 40 MEQ in SODIUM CHLORIDE 0.9% IV 500 ML 130 MEQ IVPB ×2 (08:19→17:42)
[2025-08-03] MEDS: PANTOPRAZOLE SODIUM IV 40 MG VIAL IV PUSH (08:19)
--- NOTE | 2025-08-03 08:33 | PC.NURSE ---
pt c/o nausea at this time, will monitor and delay PO meds until feeling up to it
[2025-08-03] MEDS: SERTRALINE HCL 50 MG TABLET 100 MG PO (12:49)
[2025-08-03] MEDS: TETRACYCLINE HCL 250 MG CAPSULE 500 MG PO ×2 (12:49→20:39)
[2025-08-03] MEDS: MONTELUKAST SODIUM 10 MG TABLET PO (12:49)
[2025-08-03] MEDS: LOSARTAN POTASSIUM 25 MG TABLET PO (12:49)
--- NOTE | 2025-08-03 13:19 | P.CDI_ITS ---
CDI Query Clarification Request BMI: 30.6 Nutritional Diagnostic Statement: Please refer to the comprehensive nutrition assessment for further information. If you agree with diagnosis of Severe protein calorie malnutrition related to uncontrolled vomiting in the setting of altered GI function as evidenced by intakes <75% needs >1 month; weight loss -23%/5 months. Please specify severity if known: * Mild * Moderate * Severe * Other/Unknown <Leslee Jin RN - Last Filed: 08/03/25 13:19> BMI: 30.6 Nutritional Diagnostic Statement: Please refer to the comprehensive nutrition assessment for further information. If you agree with diagnosis of Severe protein calorie malnutrition related to uncontrolled vomiting in the setting of altered GI function as evidenced by intakes <75% needs >1 month; weight loss -23%/5 months. Please specify severity if known: * Other/Unknown <Laury Ramsey APRN - Last Filed: 08/03/25 13:23>
[2025-08-03 16:03] LABS: Anion Gap -1 mmol/L (4-12); Blood Urea Nitrogen 4 mg/dL (7-17); Calcium 7.5 mg/dL (8.4-10.2); Carbon Dioxide 28 mmol/L (22-30); Chloride 109 mmol/L (98-107); Estimated CRCL calculation 58 ml/min; Estimated Glomerular Filt Rate > 60; Glucose 101 mg/dL (65-110); Potassium 3.2 mmol/L (3.4-5.0); Sodium 136 mmol/L (137-145)
[2025-08-03] MEDS: MICONAZOLE NITRATE 2% CREAM 30 GM TUBE 1 APPLIC TOPICAL (20:40)
[2025-08-04] VITALS (9 sets, daily range): BP systolic 126–132; BP diastolic 57–68; PULSE 73–105; RESP 18; TEMP 36.4–36.8; O2SAT 97–100
[2025-08-04] MEDS: SODIUM CHLORIDE 0.9% IV 1,000 ML 125 ML IV CONT ×3 (00:06→21:17)
[2025-08-04] MEDS: cefTRIAXone 1 GM in SODIUM CHLORIDE 0.9% IV 50 ML 100 ML IVPB (00:07)
[2025-08-04] MEDS: KCL 20 MEQ/SW 100 ML 100 ML 50 MEQ IVPB (00:08)
[2025-08-04 05:22] LABS: Hematocrit 27.1 % (37.0-47.0); Hemoglobin 8.7 g/dL (12.0-15.0); Mean Corpuscular HGB Conc 32.1 g/dl (32-36); Mean Corpuscular Hemoglobin 29.8 pg (26-34); Mean Corpuscular Volume 92.8 fl (80-100); Platelet Count Result 140 k/mm3 (150-375); Red Blood Count 2.92 M/mm3 (4.2-5.4); White Blood Count 3.6 K/mm3 (4.5-10.0)
[2025-08-04 05:56] LABS: Anion Gap -1 mmol/L (4-12); Blood Urea Nitrogen 3 mg/dL (7-17); Calcium 7.3 mg/dL (8.4-10.2); Carbon Dioxide 25 mmol/L (22-30); Chloride 113 mmol/L (98-107); Cholesterol 113 mg/dL (0-200); Estimated CRCL calculation 63 ml/min; Estimated Glomerular Filt Rate > 60; Glucose 82 mg/dL (65-110); HDL Direct 25 mg/dL; Potassium 3.5 mmol/L (3.4-5.0); Sodium 137 mmol/L (137-145); Triglycerides 88 mg/dL (<150)
[2025-08-04 06:22] LABS: Hepatitis B Surface Antigen Negative (Negative)
[2025-08-04 06:28] LABS: HAV RESULT Negative (Negative); Hepatitis B Core IgM Result Negative (Negative)
--- NOTE | 2025-08-04 08:23 | PM.IMPN2 ---
Assessment and Plan Assessment and Plan (1) Intractable nausea and vomiting: Code(s): R11.2 - Nausea with vomiting, unspecified Status: Acute Assessment and Plan: -the patient has been on therapy for H pylori. She stated that this is been irritating her stomach. She also has a history of GERD. The patient continued to feel nauseated even though she received Zofran in the emergency room. She also had some electrolyte imbalances as well. She also has UTI. -CT scan of the abdomen was reported as negative for benign. -continue with antiemetic medication. -continue with IV fluids. -monitor electrolytes and replete as necessary. -continue with IV Protonix. -currently she is on full liquid diet and tolerating it well, will advance to reg diet today to start with dinner (2) UTI (urinary tract infection): Code(s): N39.0 - Urinary tract infection, site not specified Status: Acute Assessment and Plan: -continue with Rocephin. -blood and urine cultures are pending. positive dysuria (3) Hypokalemia: Code(s): E87.6 - Hypokalemia Status: Acute Assessment and Plan: -her potassium was 3.0 and was replenished. 3.5 today, after a total of 100meq IV given yesterday throughout the day. -Giving x1 more dose of 40meq K PO today due to pt being able to take pills -monitor BMP and replenish potassium as necessary. (4) Hypomagnesemia: Code(s): E83.42 - Hypomagnesemia Status: Acute Assessment and Plan: -magnesium was 1.7. Which is low normal and she was replenished in the emergency room and nadine to 2.2. -continue to monitor magnesium level. (5) Helicobacter positive gastritis: Code(s): K29.70 - Gastritis, unspecified, without bleeding; B96.81 - Helicobacter pylori [H. pylori] as the cause of diseases classified elsewhere Status: Acute Assessment and Plan: -continue with tetracycline if patient is able to tolerate. Last day of these abx tomorrow, pt reports that she has been able to tolerate them while inpt. -she has been changed to IV Protonix. (6) Depression: Code(s): F32.A - Depression, unspecified Status: Acute Assessment and Plan: -continue with sertraline (7) HTN (hypertension): Qualifiers: Hypertension type: primary hypertension Qualified Code(s): I10 - Essential (primary) hypertension Code(s): I10 - Essential (primary) hypertension Status: Acute Assessment and Plan: -patient's blood pressure is on the soft side 130/68. -resume losartan if blood pressure allows. -monitor BMP (8) Asthma: Code(s): J45.909 - Unspecified asthma, uncomplicated Status: Acute Assessment and Plan: -continue with albuterol treatments p.r.n.. -continue with Singulair (9) Yeast infection: Code(s): B37.9 - Candidiasis, unspecified Status: Acute Assessment and Plan: -miconazole cream (10) Cirrhosis: Code(s): K74.60 - Unspecified cirrhosis of liver Status: Acute Assessment and Plan: New per pt. -AST/ALT elevated, will continue to trend -Hep panel & lipid panel added on: [facility] -Pt established with Dr. Oliver BRENNAN, will f/u with him for hepatology referral since none at [place] -Denies drinking etoh or drug IV drug use but does admit to high fat diet Plan Continue electrolyte monitoring and H. Pylori tx Medical Record Review I have reviewed the following patient records and this information was taken into consideration when formulating the assessment and plan.: previous labs and previous ER visits Subjective Date/time seen: 08/04/25 1208 Interval history: Patient resting comfortably in bed upon my arrival but still c/o nausea. He also states that she had x2 episodes of diarrhea overnight. She is currently tolerating full liquid diet and is agreeable to advancing diet. Pt reports feeling better today, but still not back to baseline. Review of Systems Constitutional: Constitutional: Reports as per HPI and Reports no additional constitutional complaints Eyes: Eyes: Reports as per HPI and Reports no additional eye complaints ENT: Reports system reviewed and no additional complaints, except as documented and Reports Normal hearing present Cardiovascular: Cardiovascular: Reports no additional cardiovascular complaints Respiratory: Respiratory: Reports as per HPI and Reports no additional respiratory complaints Gastrointestinal: Gastrointestinal: Reports as per HPI and Reports no additional gastrointestinal complaints Genitourinary: Genitourinary: Reports no additional female genitourinary complaints Musculoskeletal: Musculoskeletal: Reports no additional musculoskeletal complaints Integumentary/Breasts: Skin/Breast: Reports system reviewed and no additional complaints, except as docu Neurologic: Reports system reviewed and no additional complaints, except as documented and Reports Normal hearing present Psychiatric: Psychiatric: Reports no additional psychiatric complaints and Reports as per HPI Hematologic/Lymphatic: Hematologic/Lymphatic: Reports no additional hematologic/lymphatic complaints Allergic/Immunologic: Allergic/Immunologic: Reports no additional allergic/immunologic complaints Exam Const: General: cooperative, healthy appearing, no acute distress, well developed, awake, Physically active and average body habitus Nutritional Appearance: average body habitus Orientation/consciousness: oriented to person, oriented to place, oriented to time and patient oriented x3 Limitations: no limitations HENMT: Head: normal to inspection, No palpable skull fracture present, normocephalic and atraumatic Eyes: General: appearance normal, both eyes and all related structures Alignment and Position: alignment normal Periorbital: periorbital findings normal Eyelids: eyelids normal Pupils: Equal, round and reactive pupils present Neck: Neck: normal visual inspection, full ROM and no lymphadenopathy Chest: Chest palpation & inspection: normal inspection of the chest Resp: Effort & Inspection: normal respiratory effort Auscultation: clear to auscultation bilaterally Percussion: percussion normal Cardio: Palpation: normal PMI Rate: regular rate Rhythm: regular rhythm Heart sounds: S1 normal heart sound present and S2 normal heart sound present Peripheral pulses: Peripheral pulses 2+ throughout GI: Inspection: normal to inspection Auscultation: normal bowel sounds Rectal Exam: deferred : General: Yes no CVA tenderness Back/Spine/Pelvis: Back: no CVA tenderness Cervical Spine: cervical ROM normal Thoracic/Lumbar Spine: thoracic and lumbar spine normal to inspection Pelvis: no pain with anterior-posterior compression Skin: General skin exam: normal color and rashes (Under breast) Lesions: no lesions Rashes: no rashes and rashes noted (Under breast) Trauma: no lacerations or abrasions Wounds: no wounds Hair: normal Nails: normal Other: Erythematous blanchable rash under both breasts. Neuro: General: oriented to person, oriented to place, oriented to time and patient oriented x3 Cranial nerves: Yes Equal, round and reactive pupils present and Yes Normal hearing present Cognition (Neuro): normal cognition Speech: normal speech Motor exam (neuro): 5/5 motor strength present throughout Sensory Exam: normal sensation Extrem: General: normal to inspection Right upper extremity: normal to inspection and shoulder/upper arm Left upper extremity: normal to inspection and shoulder/upper arm Right lower extremity: normal to inspection Left lower extremity: normal to inspection Psych: Appearance: grossly normal Mental Status: mental status grossly normal Speech and movement: Normal speech and movement present Affect: normal affect Attitude: cooperative Thought process: Normal thought process present Insight: Good insight present (Psych) Judgement: Good judgement present (Psych) Objective Data Vital Signs Vital Signs: Vital Signs - 24 hr 08/03/25 12:00 08/03/25 14:26 08/03/25 16:00 Temperature 98.4 F Pulse Rate 75 72 72 Respiratory Rate 15 Blood Pressure 108/48 L Pulse Oximetry 97 Oxygen Delivery 08/03/25 20:00 08/03/25 20:00 08/03/25 20:16 Temperature 97.8 F Pulse Rate 73 78 Respiratory Rate 16 Blood Pressure 125/63 Pulse Oximetry 98 Oxygen Delivery Room Air 08/04/25 00:00 08/04/25 04:00 08/04/25 05:13 Temperature 97.6 F Pulse Rate 73 73 74 Respiratory Rate 18 Blood Pressure 130/68 Pulse Oximetry 97 Oxygen Delivery Intake/Output Intake/Output: Intake & Output 08/01/25 08/02/25 08/03/25 08/04/25 23:59 23:59 23:59 23:59 Intake Total 1000 3019.2 879.2 Balance 1000 3019.2 879.2 Meds/Results Medications: Active Medications Generic Name Dose Route Start Last Admin Trade Name Freq PRN Reason Stop Dose Admin Albuterol 2.5 mg 08/03/25 03:19 Albuterol Sulfate Neb 2.5 Mg/3 Ml Inh INHALATION Q6H PRN Shortness Of Breath Or Wheezing Sodium Chloride 1,000 mls @ 125 mls/hr 08/02/25 23:55 08/04/25 00:06 Normal Saline Iv IV CONT 125 mls/hr .Q8H SCOTTIE Administration Ceftriaxone Sodium 1 gm/ 50 mls @ 100 mls/hr 08/04/25 00:00 08/04/25 00:07 Sodium Chloride IVPB 100 mls/hr Q24H [facility]OTT[facility] Administration Losartan Potassium 25 mg 08/03/25 09:00 08/03/25 12:49 Losartan Potassium 25 Mg Tablet PO 25 mg DAILY [facility] Administration Miconazole Nitrate 1 applic 08/03/25 09:00 08/03/25 20:40 Miconazole Nitrate 2% Cream 30 Gm Tube TOPICAL 1 applic Q12HR [facility] Administration Montelukast Sodium 10 mg 08/03/25 09:00 08/03/25 12:49 Montelukast Sodium 10 Mg Tablet PO 10 mg DAILY [facility] Administration Ondansetron HCl 4 mg 08/02/25 23:55 08/03/25 17:45 Ondansetron Inj 4 Mg/2 Ml Vial IV PUSH 4 mg Q4H PRN Administration Nausea Pantoprazole Sodium 40 mg 08/03/25 09:00 08/03/25 08:19 Pantoprazole Sodium Iv 40 Mg Vial IV PUSH 40 mg QAM [facility] Administration Sertraline HCl 100 mg 08/03/25 09:00 08/03/25 12:49 Sertraline Hcl 50 Mg Tablet PO 100 mg DAILY [facility] Administration Tetracycline HCl 500 mg 08/03/25 09:00 08/03/25 20:39 Tetracycline Hcl 250 Mg Capsule PO 08/05/25 21:01 500 mg Q12HR [facility]OTTIE Administration Radiology Results: ITS Impressions Chest X-Ray 08/02/25 19:49 Impression: No acute cardiopulmonary abnormality. Abdomen/Pelvis CT 08/03/25 07:30 IMPRESSION: 1. No acute abnormality. 2. Additional findings as above. Labs Labs: Laboratory Results - last 24 hr 08/03/25 08/04/25 15:12 04:50 WBC 3.6 L RBC 2.92 L Hgb 8.7 L Hct 27.1 L MCV 92.8 MCH 29.8 MCHC 32.1 RDW 13.2 Plt Count 140 L MPV 10.7 H Sodium 136 L 137 Potassium 3.2 L 3.5 Chloride 109 H 113 H Carbon Dioxide 28 25 Anion Gap -1 L -1 L BUN 4 L 3 L Creatinine 0.84 0.77 Estim Creat Clear Calc 58 63 Estimated GFR > 60 > 60 Glucose 101 82 Calcium 7.5 L 7.3 L Triglycerides 88 Cholesterol 113 LDL Cholesterol Direct 76 HDL Direct 25 Hepatitis A IgM Ab Negative Hep Bs Antigen Negative Hep B Core IgM Ab Negative Hepatitis C Ab Screen Negative Quality VTE Prophylaxis VTE prophylaxis: mechanical ordered
[2025-08-04] MEDS: TETRACYCLINE HCL 250 MG CAPSULE 500 MG PO ×2 (08:27→21:17)
[2025-08-04] MEDS: PANTOPRAZOLE SODIUM IV 40 MG VIAL IV PUSH (08:27)
[2025-08-04] MEDS: MICONAZOLE NITRATE 2% CREAM 30 GM TUBE 1 APPLIC TOPICAL ×2 (08:28→21:18)
[2025-08-04] MEDS: SERTRALINE HCL 50 MG TABLET 100 MG PO (08:38)
[2025-08-04] MEDS: MONTELUKAST SODIUM 10 MG TABLET PO (08:38)
[2025-08-04] MEDS: LOSARTAN POTASSIUM 25 MG TABLET PO (08:38)
[2025-08-04] MEDS: ONDANSETRON INJ 4 MG/2 ML VIAL IV PUSH ×2 (08:38→13:30)
[2025-08-04] MEDS: POTASSIUM CHLORIDE 20 MEQ ER TABLET 40 MEQ PO (15:04)
[2025-08-05] VITALS (10 sets, daily range): BP systolic 117–144; BP diastolic 51–68; PULSE 65–77; RESP 16–18; TEMP 36.3–37; O2SAT 96–99
[2025-08-05] MEDS: SODIUM CHLORIDE 0.9% IV 1,000 ML 125 ML IV CONT (01:03)
[2025-08-05] MEDS: cefTRIAXone 1 GM in SODIUM CHLORIDE 0.9% IV 50 ML 100 ML IVPB (01:04)
[2025-08-05 05:50] LABS: Hematocrit 27.6 % (37.0-47.0); Hemoglobin 8.9 g/dL (12.0-15.0); Mean Corpuscular HGB Conc 32.2 g/dl (32-36); Mean Corpuscular Hemoglobin 30.0 pg (26-34); Mean Corpuscular Volume 92.9 fl (80-100); Platelet Count Result 136 k/mm3 (150-375); Red Blood Count 2.97 M/mm3 (4.2-5.4); White Blood Count 4.4 K/mm3 (4.5-10.0)
[2025-08-05 06:15] LABS: Alanine Aminotransferase 43 U/L (6-35); Albumin Level 2.2 g/dL (3.5-5.1); Alkaline Phosphatase 91 U/L (38-126); Anion Gap 1 mmol/L (4-12); Aspartate Amino Transferase 58 U/L (14-36); Bilirubin,Total 0.7 mg/dL (0.2-1.3); Calcium 7.6 mg/dL (8.4-10.2); Carbon Dioxide 23 mmol/L (22-30); Chloride 111 mmol/L (98-107); Estimated CRCL calculation 69 ml/min; Estimated Glomerular Filt Rate > 60; Glucose 79 mg/dL (65-110); Magnesium 1.7 mg/dL (1.6-2.3); Potassium 3.5 mmol/L (3.4-5.0); Sodium 135 mmol/L (137-145); Total Protein 5.4 g/dL (6.3-8.2)
[2025-08-05 06:27] LABS: Blood Urea Nitrogen < 2 mg/dL (7-17)
[2025-08-05] MEDS: SERTRALINE HCL 50 MG TABLET 100 MG PO (08:16)
[2025-08-05] MEDS: PANTOPRAZOLE SODIUM IV 40 MG VIAL IV PUSH (08:16)
[2025-08-05] MEDS: MONTELUKAST SODIUM 10 MG TABLET PO (08:17)
[2025-08-05] MEDS: TETRACYCLINE HCL 250 MG CAPSULE 500 MG PO ×2 (08:17→21:37)
[2025-08-05] MEDS: LOSARTAN POTASSIUM 25 MG TABLET PO (08:17)
[2025-08-05] MEDS: MICONAZOLE NITRATE 2% CREAM 30 GM TUBE 1 APPLIC TOPICAL ×2 (08:18→21:38)
[2025-08-05] MEDS: ONDANSETRON INJ 4 MG/2 ML VIAL IV PUSH ×3 (08:21→16:16)
--- NOTE | 2025-08-05 12:51 | P.PNIM_ITS ---
Assessment and Plan Assessment and Plan (1) Intractable nausea and vomiting: Code(s): R11.2 - Nausea with vomiting, unspecified Status: Acute Assessment and Plan: - the patient has been on therapy for H pylori. today is her last day of hpylori treatment - CT scan of the abdomen was reported as negative - continue antiemetic - pt is on a bland diet today - hopeful dc glory - electrolytes are nl (2) UTI (urinary tract infection): Code(s): N39.0 - Urinary tract infection, site not specified Status: Acute Assessment and Plan: -continue with Rocephin iv for suspected UTI -blood and urine cultures are pending - wcc is nl (3) Hypokalemia: Code(s): E87.6 - Hypokalemia Status: Acute Assessment and Plan: -potassium has been corrected (4) Hypomagnesemia: Code(s): E83.42 - Hypomagnesemia Status: Acute Assessment and Plan: -continue to correct mg (5) Helicobacter positive gastritis: Code(s): K29.70 - Gastritis, unspecified, without bleeding; B96.81 - Helicobacter pylori [H. pylori] as the cause of diseases classified elsewhere Status: Acute Assessment and Plan: -transition to oral PPI - pt completing tetracycline oral abx today (6) Depression: Code(s): F32.A - Depression, unspecified Status: Acute Assessment and Plan: -continue with sertraline (7) HTN (hypertension): Qualifiers: Hypertension type: primary hypertension Qualified Code(s): I10 - Essential (primary) hypertension Code(s): I10 - Essential (primary) hypertension Status: Acute Assessment and Plan: - bp is stable -monitor BMP (8) Asthma: Code(s): J45.909 - Unspecified asthma, uncomplicated Status: Acute Assessment and Plan: -continue with albuterol treatments p.r.n.. -continue with Singulair (9) Yeast infection: Code(s): B37.9 - Candidiasis, unspecified Status: Acute Assessment and Plan: -miconazole cream (10) Cirrhosis: Code(s): K74.60 - Unspecified cirrhosis of liver Status: Acute Assessment and Plan: - transaminitis -AST/ALT elevated -Pt established with Dr. Oliver BRENNAN, will f/u with him for hepatology Subjective Date/time seen: 08/05/25 12:51 Interval history: Pt feeling very nauseated today wanting to dc glory today pt is on her last day of her hpylori treatment Review of Systems Review of Systems: ongoing nausea Exam Const: General: cooperative, healthy appearing, no acute distress, well developed, awake, Physically active and average body habitus Nutritional Appearance: average body habitus Orientation/consciousness: oriented to person, oriented to place, oriented to time and patient oriented x3 Limitations: no limitations HENMT: Head: normal to inspection, No palpable skull fracture present, normocephalic and atraumatic Eyes: General: appearance normal, both eyes and all related structures Alignment and Position: alignment normal Periorbital: periorbital findings normal Eyelids: eyelids normal Pupils: Equal, round and reactive pupils present Neck: Neck: normal visual inspection, full ROM and no lymphadenopathy Chest: Chest palpation & inspection: normal inspection of the chest Resp: Effort & Inspection: normal respiratory effort Auscultation: clear to auscultation bilaterally Percussion: percussion normal Cardio: Palpation: normal PMI Rate: regular rate Rhythm: regular rhythm Heart sounds: S1 normal heart sound present and S2 normal heart sound present Peripheral pulses: Peripheral pulses 2+ throughout GI: Inspection: normal to inspection Auscultation: normal bowel sounds Rectal Exam: deferred : General: Yes no CVA tenderness Back/Spine/Pelvis: Back: no CVA tenderness Cervical Spine: cervical ROM normal Thoracic/Lumbar Spine: thoracic and lumbar spine normal to inspection Pelvis: no pain with anterior-posterior compression Skin: General skin exam: normal color and rashes (Under breast) Lesions: no lesions Rashes: no rashes and rashes noted (Under breast) Trauma: no lacerations or abrasions Wounds: no wounds Hair: normal Nails: normal Other: Erythematous blanchable rash under both breasts. Neuro: General: oriented to person, oriented to place, oriented to time and patient oriented x3 Cranial nerves: Yes Equal, round and reactive pupils present and Yes Normal hearing present Cognition (Neuro): normal cognition Speech: normal speech Motor exam (neuro): 5/5 motor strength present throughout Sensory Exam: normal sensation Extrem: General: normal to inspection Right upper extremity: normal to inspection and shoulder/upper arm Left upper extremity: normal to inspection and shoulder/upper arm Right lower extremity: normal to inspection Left lower extremity: normal to inspection Psych: Appearance: grossly normal Mental Status: mental status grossly normal Speech and movement: Normal speech and movement present Affect: nor mal affect Attitude: cooperative Thought process: Normal thought process present Insight: Good insight present (Psych) Judgement: Good judgement present (Psych) Objective Data Vital Signs Vital Signs: Vital Signs - 24 hr 08/04/25 14:00 08/04/25 16:05 08/04/25 20:00 Temperature 36.8 C Pulse Rate 74 105 H Respiratory Rate 18 Blood Pressure 132/58 L Pulse Oximetry 100 Oxygen Delivery Room Air 08/04/25 20:00 08/04/25 20:24 08/05/25 00:00 Temperature 36.7 C Pulse Rate 77 77 76 Respiratory Rate 18 Blood Pressure 126/57 L Pulse Oximetry 98 Oxygen Delivery 08/05/25 04:00 08/05/25 04:25 08/05/25 08:18 Temperature 36.3 C L Pulse Rate 75 71 Respiratory Rate 18 Blood Pressure 117/51 L Pulse Oximetry 96 Oxygen Delivery Room Air Intake/Output Intake/Output: Intake & Output 08/02/25 08/03/25 08/04/25 08/05/25 23:59 23:59 23:59 23:59 Intake Total 1000 3019.2 4592.0 890.8 Balance 1000 3019.2 4592.0 890.8 Meds/Results Medications: Active Medications Generic Name Dose Route Start Last Admin Trade Name Freq PRN Reason Stop Dose Admin Albuterol 2.5 mg 08/03/25 03:19 Albuterol Sulfate Neb 2.5 Mg/3 Ml Inh INHALATION Q6H PRN Shortness Of Breath Or Wheezing Sodium Chloride 1,000 mls @ 125 mls/hr 08/02/25 23:55 08/05/25 01:03 Normal Saline Iv IV CONT 125 mls/hr .Q8H SCOTTIE Administration Ceftriaxone Sodium 1 gm/ 50 mls @ 100 mls/hr 08/04/25 00:00 08/05/25 01:04 Sodium Chloride IVPB 100 mls/hr Q24H SCOTTIE Administration Losartan Potassium 25 mg 08/03/25 09:00 08/05/25 08:17 Losartan Potassium 25 Mg Tablet PO 25 mg DAILY SCOTTIE Administration Miconazole Nitrate 1 applic 08/03/25 09:00 08/05/25 08:18 Miconazole Nitrate 2% Cream 30 Gm Tube TOPICAL 1 applic Q12HR SCOTTIE Administration Montelukast Sodium 10 mg 08/03/25 09:00 08/05/25 08:17 Montelukast Sodium 10 Mg Tablet PO 10 mg DAILY SCOTTIE Administration Ondansetron HCl 4 mg 08/02/25 23:55 08/05/25 12:31 Ondansetron Inj 4 Mg/2 Ml Vial IV PUSH 4 mg Q4H PRN Administration Nausea Pantoprazole Sodium 40 mg 08/03/25 09:00 08/05/25 08:16 Pantoprazole Sodium Iv 40 Mg Vial IV PUSH 40 mg QAM SCOTTIE Administration Sertraline HCl 100 mg 08/03/25 09:00 08/05/25 08:16 Sertraline Hcl 50 Mg Tablet PO 100 mg DAILY SCOTTIE Administration Tetracycline HCl 500 mg 08/03/25 09:00 08/05/25 08:17 Tetracycline Hcl 250 Mg Capsule PO 08/05/25 21:01 500 mg Q12HR SCOTTIE Administration Radiology Results: ITS Impressions Chest X-Ray 08/02/25 19:49 Impression: No acute cardiopulmonary abnormality. Abdomen/Pelvis CT 08/03/25 07:30 IMPRESSION: 1. No acute abnormality. 2. Additional findings as above. Labs Labs: Laboratory Results - last 24 hr 08/05/25 05:31 WBC 4.4 L RBC 2.97 L Hgb 8.9 L Hct 27.6 L MCV 92.9 MCH 30.0 MCHC 32.2 RDW 13.2 Plt Count 136 L MPV 10.5 H Sodium 135 L Potassium 3.5 Chloride 111 H Carbon Dioxide 23 Anion Gap 1 L BUN < 2 L Creatinine 0.70 Estim Creat Clear Calc 69 Estimated GFR > 60 Glucose 79 Calcium 7.6 L Magnesium 1.7 Total Bilirubin 0.7 AST 58 H ALT 43 H Alkaline Phosphatase 91 Total Protein 5.4 L Albumin 2.2 L
[2025-08-05 15:11] LABS: Anion Gap 1 mmol/L (4-12); Calcium 7.6 mg/dL (8.4-10.2); Carbon Dioxide 25 mmol/L (22-30); Chloride 110 mmol/L (98-107); Estimated CRCL calculation 71 ml/min; Estimated Glomerular Filt Rate > 60; Glucose 85 mg/dL (65-110); Magnesium 1.6 mg/dL (1.6-2.3); Potassium 3.2 mmol/L (3.4-5.0); Sodium 136 mmol/L (137-145)
[2025-08-05 15:13] LABS: Blood Urea Nitrogen < 2 mg/dL (7-17)
[2025-08-05] MEDS: POTASSIUM CHLORIDE 20 MEQ ER TABLET 40 MEQ PO (18:35)
[2025-08-05] MEDS: MAGNESIUM OXIDE 200 MG TABLET PO (21:37)
[2025-08-06] VITALS (8 sets, daily range): BP systolic 128–138; BP diastolic 57–59; PULSE 69–78; RESP 16–18; TEMP 36.7–37; O2SAT 97–99
[2025-08-06] MEDS: cefTRIAXone 1 GM in SODIUM CHLORIDE 0.9% IV 50 ML 100 ML IVPB (01:35)
[2025-08-06 06:46] LABS: Alanine Aminotransferase 44 U/L (6-35); Albumin Level 2.6 g/dL (3.5-5.1); Alkaline Phosphatase 98 U/L (38-126); Anion Gap 1 mmol/L (4-12); Aspartate Amino Transferase 61 U/L (14-36); Bilirubin,Total 0.8 mg/dL (0.2-1.3); Calcium 7.9 mg/dL (8.4-10.2); Carbon Dioxide 27 mmol/L (22-30); Chloride 109 mmol/L (98-107); Estimated CRCL calculation 66 ml/min; Estimated Glomerular Filt Rate > 60; Glucose 82 mg/dL (65-110); Magnesium 1.6 mg/dL (1.6-2.3); Potassium 3.5 mmol/L (3.4-5.0); Sodium 137 mmol/L (137-145); Total Protein 5.9 g/dL (6.3-8.2)
[2025-08-06] MEDS: ONDANSETRON INJ 4 MG/2 ML VIAL IV PUSH ×3 (06:58→18:33)
[2025-08-06 07:04] LABS: Blood Urea Nitrogen < 2 mg/dL (7-17)
[2025-08-06 07:55] LABS: Hematocrit 28.2 % (37.0-47.0); Hemoglobin 9.1 g/dL (12.0-15.0); Immature Granulocyte Percent A 0.2 % (0-0.5); Lymphocytes Absolute Auto 2.16 K/mm3 (0.9-3.2); Mean Corpuscular HGB Conc 32.3 g/dl (32-36); Mean Corpuscular Hemoglobin 29.4 pg (26-34); Mean Corpuscular Volume 91.3 fl (80-100); Nucleated Red Blood Cells Absolute Auto 0.000 K/mm3 (0.0-0.012); Nucleated Red Blood Cells Perc 0.0 % (0.0-0.2); Platelet Count Result 151 k/mm3 (150-375); Red Blood Count 3.09 M/mm3 (4.2-5.4); White Blood Count 4.2 K/mm3 (4.5-10.0)
[2025-08-06] MEDS: MONTELUKAST SODIUM 10 MG TABLET PO (08:28)
[2025-08-06] MEDS: LOSARTAN POTASSIUM 25 MG TABLET PO (08:28)
[2025-08-06] MEDS: PANTOPRAZOLE 40 MG TABLET PO (08:28)
[2025-08-06] MEDS: SERTRALINE HCL 50 MG TABLET 100 MG PO (08:28)
[2025-08-06] MEDS: MAGNESIUM OXIDE 200 MG TABLET PO ×2 (08:28→20:56)
[2025-08-06] MEDS: MICONAZOLE NITRATE 2% CREAM 30 GM TUBE 1 APPLIC TOPICAL ×2 (08:31→20:56)
[2025-08-06] MEDS: POTASSIUM CHLORIDE 20 MEQ ER TABLET PO (09:48)
--- NOTE | 2025-08-06 12:46 | PM.IMPN2 ---
Assessment and Plan Assessment and Plan (1) Intractable nausea and vomiting: Code(s): R11.2 - Nausea with vomiting, unspecified Status: Acute Assessment and Plan: - the patient has been on therapy for H pylori. today is her last day of hpylori treatment - CT scan of the abdomen was reported as negative - continue antiemetic - pt is on a bland diet today - hopeful dc glory if no further vomiting. - electrolytes are nl (2) UTI (urinary tract infection): Code(s): N39.0 - Urinary tract infection, site not specified Status: Acute Assessment and Plan: -continue with Rocephin iv for suspected UTI d/c'd since culture negative -blood cultures are pending - wcc is nl (3) Hypokalemia: Code(s): E87.6 - Hypokalemia Status: Acute Assessment and Plan: -potassium has been corrected (4) Hypomagnesemia: Code(s): E83.42 - Hypomagnesemia Status: Acute Assessment and Plan: -continue to correct mg (5) Helicobacter positive gastritis: Code(s): K29.70 - Gastritis, unspecified, without bleeding; B96.81 - Helicobacter pylori [H. pylori] as the cause of diseases classified elsewhere Status: Acute Assessment and Plan: -transition to oral PPI - pt completing tetracycline oral abx 08/05/25 (6) Depression: Code(s): F32.A - Depression, unspecified Status: Acute Assessment and Plan: -continue with sertraline (7) HTN (hypertension): Qualifiers: Hypertension type: primary hypertension Qualified Code(s): I10 - Essential (primary) hypertension Code(s): I10 - Essential (primary) hypertension Status: Acute Assessment and Plan: - bp is stable -monitor BMP (8) Asthma: Code(s): J45.909 - Unspecified asthma, uncomplicated Status: Acute Assessment and Plan: -continue with albuterol treatments p.r.n.. -continue with Singulair (9) Yeast infection: Code(s): B37.9 - Candidiasis, unspecified Status: Acute Assessment and Plan: -miconazole cream (10) Cirrhosis: Code(s): K74.60 - Unspecified cirrhosis of liver Status: Acute Assessment and Plan: - transaminitis -AST/ALT elevated -Pt established with Dr. Oliver GI, will f/u with him for hepatology Plan code status - full code Disposition - patient will be discharged home once stable, hoepfully in the AM. Medical Record Review I have reviewed the following patient records and this information was taken into consideration when formulating the assessment and plan.: previous labs Consultations Consultations: I have discussed the care of this pt with the consulting providers. Time Spent With Patient Time with patient: Greater than 35 minutes Subjective Date/time seen: 08/06/25 12:46 Interval history: patient finished her H. Pylori treatment 08/05/25. Had vomiting yesterday. She was able to keep liquids down yesterday evening and throughout the night. Today patient reports she did take in half a piece of lam and 4 bites of potatoes for breakfast. she became nauseated but did not vomit. Patient was hoping for discharge home, however she ate very little of her lunch and was vomiting shortly after. patient is able to keep liquids down. patient was given Zofran, she has since ate half a brownie with no vomiting. Review of Systems Review of Systems: ongoing nausea All systems reviewed & are unremarkable except as noted in HPI and below Constitutional: Constitutional: Reports as per HPI and Reports no additional constitutional complaints Eyes: Eyes: Reports as per HPI and Reports no additional eye complaints ENT: Reports system reviewed and no additional complaints, except as documented and Reports Normal hearing present Cardiovascular: Cardiovascular: Reports no additional cardiovascular complaints Respiratory: Respiratory: Reports as per HPI and Reports no additional respiratory complaints Gastrointestinal: Gastrointestinal: Reports as per HPI and Reports no additional gastrointestinal complaints Genitourinary: Genitourinary: Reports no additional female genitourinary complaints Musculoskeletal: Musculoskeletal: Reports no additional musculoskeletal complaints Integumentary/Breasts: Skin/Breast: Reports system reviewed and no additional complaints, except as docu Neurologic: Reports system reviewed and no additional complaints, except as documented and Reports Normal hearing present Psychiatric: Psychiatric: Reports no additional psychiatric complaints and Reports as per HPI Hematologic/Lymphatic: Hematologic/Lymphatic: Reports no additional hematologic/lymphatic complaints Allergic/Immunologic: Allergic/Immunologic: Reports no additional allergic/immunologic complaints Exam Const: General: cooperative, healthy appearing, no acute distress, well developed, awake, Physically active and average body habitus Nutritional Appearance: average body habitus Orientation/consciousness: oriented to person, oriented to place, oriented to time and patient oriented x3 Limitations: no limitations HENMT: Head: normal to inspection, No palpable skull fracture present, normocephalic and atraumatic Eyes: General: appearance normal, both eyes and all related structures Alignment and Position: alignment normal Periorbital: periorbital findings normal Eyelids: eyelids normal Pupils: Equal, round and reactive pupils present Neck: Neck: normal visual inspection, full ROM and no lymphadenopathy Chest: Chest palpation & inspection: normal inspection of the chest Resp: Effort & Inspection: normal respiratory effort Auscultation: clear to auscultation bilaterally Percussion: percussion normal Cardio: Palpation: normal PMI Rate: regular rate Rhythm: regular rhythm Heart sounds: S1 normal heart sound present and S2 normal heart sound present Peripheral pulses: Peripheral pulses 2+ throughout GI: Inspection: normal to inspection Auscultation: normal bowel sounds Rectal Exam: deferred : General: Yes no CVA tenderness Back/Spine/Pelvis: Back: no CVA tenderness Cervical Spine: cervical ROM normal Thoracic/Lumbar Spine: thoracic and lumbar spine normal to inspection Pelvis: no pain with anterior-posterior compression Skin: General skin exam: normal color and rashes (Under breast) Lesions: no lesions Rashes: no rashes and rashes noted (Under breast) Trauma: no lacerations or abrasions Wounds: no wounds Hair: normal Nails: normal Other: Erythematous blanchable rash under both breasts. Neuro: General: oriented to person, oriented to place, oriented to time and patient oriented x3 Cranial nerves: Yes Equal, round and reactive pupils present and Yes Normal hearing present Cognition (Neuro): normal cognition Speech: normal speech Motor exam (neuro): 5/5 motor strength present throughout Sensory Exam: normal sensation Extrem: General: normal to inspection Right upper extremity: normal to inspection and shoulder/upper arm Left upper extremity: normal to inspection and shoulder/upper arm Right lower extremity: normal to inspection Left lower extremity: normal to inspection Psych: Appearance: grossly normal Mental Status: mental status grossly normal Speech and movement: Normal speech and movement present Affect: normal affect Attitude: cooperative Thought process: Normal thought process present Insight: Good insight present (Psych) Judgement: Good judgement present (Psych) Objective Data Vital Signs Vital Signs: Vital Signs - 24 hr 08/05/25 14:00 08/05/25 15:09 08/05/25 16:05 Temperature 98.6 F Pulse Rate 77 72 Respiratory Rate 18 Blood Pressure 144/58 H Pulse Oximetry 99 98 Oxygen Delivery Room Air 08/05/25 20:00 08/05/25 20:00 08/05/25 20:15 Temperature 97.9 F Pulse Rate 72 72 77 Respiratory Rate 18 16 Blood Pressure 137/68 Pulse Oximetry 98 97 Oxygen Delivery Room Air 08/06/25 00:00 08/06/25 04:00 08/06/25 04:15 Temperature 98.4 F Pulse Rate 78 74 74 Respiratory Rate 16 Blood Pressure 128/57 L Pulse Oximetry 97 Oxygen Delivery 08/06/25 08:32 Temperature Pulse Rate Respiratory Rate Blood Pressure Pulse Oximetry Oxygen Delivery Room Air Intake/Output Intake/Output: Intake & Output 08/03/25 08/04/25 08/05/25 08/06/25 23:59 23:59 23:59 23:59 Intake Total 3019.2 4592.0 1590.8 622 Balance 3019.2 4592.0 1590.8 622 Meds/Results Medications: Active Medications Generic Name Dose Route Start Last Admin Trade Name Freq PRN Reason Stop Dose Admin Albuterol 2.5 mg 08/03/25 03:19 Albuterol Sulfate Neb 2.5 Mg/3 Ml Inh INHALATION Q6H PRN Shortness Of Breath Or Wheezing Losartan Potassium 25 mg 08/03/25 09:00 08/06/25 08:28 Losartan Potassium 25 Mg Tablet PO 25 mg DAILY SCOTTIE Administration Magnesium Oxide 200 mg 08/05/25 21:00 08/06/25 08:28 Magnesium Oxide 200 Mg Tablet PO 200 mg Q12HR SCOTTIE Administration Miconazole Nitrate 1 applic 08/03/25 09:00 08/06/25 08:31 Miconazole Nitrate 2% Cream 30 Gm Tube TOPICAL 1 applic Q12HR SCOTTIE Administration Montelukast Sodium 10 mg 08/03/25 09:00 08/06/25 08:28 Montelukast Sodium 10 Mg Tablet PO 10 mg DAILY SCOTTIE Administration Ondansetron HCl 4 mg 08/02/25 23:55 08/06/25 12:29 Ondansetron Inj 4 Mg/2 Ml Vial IV PUSH 4 mg Q4H PRN Administration Nausea Pantoprazole Sodium 40 mg 08/06/25 09:00 08/06/25 08:28 Pantoprazole 40 Mg Tablet PO 40 mg QAM SCOTTIE Administration Potassium Chloride 20 meq 08/06/25 09:00 08/06/25 09:48 Potassium Chloride 20 Meq Er Tablet PO 20 meq DAILY SCOTTIE Administration Sertraline HCl 100 mg 08/03/25 09:00 08/06/25 08:28 Sertraline Hcl 50 Mg Tablet PO 100 mg DAILY SCOTTIE Administration Radiology Results: ITS Impressions Chest X-Ray 08/02/25 19:49 Impression: No acute cardiopulmonary abnormality. Abdomen/Pelvis CT 08/03/25 07:30 IMPRESSION: 1. No acute abnormality. 2. Additional findings as above. Labs Labs: Laboratory Results - last 24 hr 08/05/25 08/06/25 08/06/25 14:54 06:06 06:12 WBC 4.2 L RBC 3.09 L Hgb 9.1 L Hct 28.2 L MCV 91.3 MCH 29.4 MCHC 32.3 RDW 13.3 Plt Count 151 MPV 10.8 H Immature Gran % (Auto) 0.2 Neut % (Auto) 33.0 L Lymph % (Auto) 51.9 H Edgar % (Auto) 8.9 H Eos % (Auto) 5.0 H Baso % (Auto) 1.0 Lymph # (Auto) 2.16 Edgar # (Auto) 0.4 Eos # (Auto) 0.2 Baso # (Auto) 0.0 Abs Immat Gran (auto) 0.01 Absolute Neuts (auto) 1.4 Absolute Nucleated RBC 0.000 Nucleated RBC % 0.0 Sodium 136 L 137 Potassium 3.2 L 3.5 Chloride 110 H 109 H Carbon Dioxide 25 27 Anion Gap 1 L 1 L BUN < 2 L < 2 L Creatinine 0.68 L 0.73 Estim Creat Clear Calc 71 66 Estimated GFR > 60 > 60 Glucose 85 82 Calcium 7.6 L 7.9 L Magnesium 1.6 1.6 Total Bilirubin 0.8 AST 61 H ALT 44 H Alkaline Phosphatase 98 Total Protein 5.9 L Albumin 2.6 L Quality VTE Prophylaxis VTE prophylaxis: mechanical ordered Hospitalist [facility] Advance Care Plan I have confirmed that the patient's Advanced Care Plan is present, code status is documented, or surrogate decision maker is listed in patient medical record.: Yes Medication Reconciliation I have utilized all available resources to obtain, update and review the patients current medications (includes all prescriptions, OTC, herbals, cannabis, and nutritional supplements).: Yes
--- NOTE | 2025-08-06 18:55 | ECG_ITS ---
Test Date: 2025-08-06 19:07:46 Measurements Intervals [place] Rate: 75 P: 60 RI: 169 QRS: 18 QRSD: 92 T: 32 QT: 422 QTc: 473 Interpretive Statements SINUS RHYTHM NONSPECIFIC T-WAVE ABNORMALITY- ANTERIOR LEADS BASELINE ARTIFACT- II, III, AVF BORDERLINE ECG Compared to ECG 08/02/2025 19:10:14 NO SIGNIFICANT CHANGE Electronically Signed On 08-06-2025 19:43:37 [facility] by Zander Steiner D.O.
[2025-08-06] MEDS: FLUCONAZOLE 100 MG TABLET 50 MG PO (20:56)
[2025-08-07 05:49] LABS: Hematocrit 26.9 % (37.0-47.0); Hemoglobin 8.9 g/dL (12.0-15.0); Immature Granulocyte Percent A 0.2 % (0-0.5); Lymphocytes Absolute Auto 2.34 K/mm3 (0.9-3.2); Mean Corpuscular HGB Conc 33.1 g/dl (32-36); Mean Corpuscular Hemoglobin 30.0 pg (26-34); Mean Corpuscular Volume 90.6 fl (80-100); Nucleated Red Blood Cells Absolute Auto 0.000 K/mm3 (0.0-0.012); Nucleated Red Blood Cells Perc 0.0 % (0.0-0.2); Platelet Count Result 145 k/mm3 (150-375); Red Blood Count 2.97 M/mm3 (4.2-5.4); White Blood Count 4.1 K/mm3 (4.5-10.0)
[2025-08-07 06:00] VITALS: BP 136/68; PULSE 71; RESP 18; TEMP 36.7; O2SAT 98
[2025-08-07 06:11] LABS: Alanine Aminotransferase 38 U/L (6-35); Albumin Level 2.4 g/dL (3.5-5.1); Alkaline Phosphatase 90 U/L (38-126); Anion Gap 2 mmol/L (4-12); Aspartate Amino Transferase 50 U/L (14-36); Bilirubin,Total 0.9 mg/dL (0.2-1.3); Calcium 7.8 mg/dL (8.4-10.2); Carbon Dioxide 27 mmol/L (22-30); Chloride 106 mmol/L (98-107); Estimated CRCL calculation 65 ml/min; Estimated Glomerular Filt Rate > 60; Glucose 84 mg/dL (65-110); Magnesium 1.6 mg/dL (1.6-2.3); Potassium 3.0 mmol/L (3.4-5.0); Sodium 135 mmol/L (137-145); Total Protein 5.6 g/dL (6.3-8.2)
[2025-08-07 07:14] LABS: Blood Urea Nitrogen < 2 mg/dL (7-17)
--- NOTE | 2025-08-07 08:00 | ECG_ITS ---
Test Date: 2025-08-07 08:56:23 Measurements Intervals [place] Rate: 67 P: 47 [place]: 173 QRS: 10 QRSD: 86 T: 31 QT: 433 QTc: 460 Interpretive Statements SINUS RHYTHM NORMAL ECG Compared to ECG 08/06/2025 19:07:46 No significant changes Electronically Signed On 08-07-2025 09:05:26 [employer] by Zander Steiner D.O.
[2025-08-07] MEDS: LOSARTAN POTASSIUM 25 MG TABLET PO (09:27)
[2025-08-07] MEDS: POTASSIUM CHLORIDE 20 MEQ ER TABLET PO ×2 (09:27→09:28)
[2025-08-07] MEDS: SERTRALINE HCL 50 MG TABLET 100 MG PO (09:27)
[2025-08-07] MEDS: PANTOPRAZOLE 40 MG TABLET PO (09:28)
[2025-08-07] MEDS: MAGNESIUM OXIDE 200 MG TABLET PO (09:28)
[2025-08-07] MEDS: MICONAZOLE NITRATE 2% CREAM 30 GM TUBE 1 APPLIC TOPICAL (09:28)
[2025-08-07] MEDS: MONTELUKAST SODIUM 10 MG TABLET PO (09:28)
[2025-08-07] MEDS: ONDANSETRON INJ 4 MG/2 ML VIAL IV PUSH (09:41)
--- NOTE | 2025-08-07 11:23 | P.DS_ITS ---
DS: Admitting Diagnosis Discharge Date 08/07/2025 Admitting Diagnosis Intractable nausea vomiting UTI Hypokalemia Hypomagnesemia Helicobacter positive gastritis Depression Hypertension Asthma Yeast infection Hepatic steatosis DS: Discharge Diagnosis Discharge Diagnosis (1) Intractable nausea and vomiting: Code(s): R11.2 - Nausea with vomiting, unspecified Status: Acute (2) UTI (urinary tract infection): Code(s): N39.0 - Urinary tract infection, site not specified Status: Acute (3) Hypokalemia: Code(s): E87.6 - Hypokalemia Status: Acute (4) Hypomagnesemia: Code(s): E83.42 - Hypomagnesemia Status: Acute (5) Helicobacter positive gastritis: Code(s): K29.70 - Gastritis, unspecified, without bleeding; B96.81 - Helicobacter pylori [H. pylori] as the cause of diseases classified elsewhere Status: Acute (6) Depression: Code(s): F32.A - Depression, unspecified Status: Acute (7) HTN (hypertension): Qualifiers: Hypertension type: primary hypertension Qualified Code(s): I10 - Essential (primary) hypertension Code(s): I10 - Essential (primary) hypertension Status: Acute (8) Asthma: Code(s): J45.909 - Unspecified asthma, uncomplicated Status: Acute (9) Yeast infection: Code(s): B37.9 - Candidiasis, unspecified Status: Acute (10) Cirrhosis: Code(s): K74.60 - Unspecified cirrhosis of liver Status: Acute DS: Summary Hospital Course Reason for hospitalization: Nausea vomiting Hospital Course: The patient is a 70-year-old female with a history of myelodysplastic syndrome, hepatic steatosis/cirrhosis, hypertension, asthma, depression, and GERD who was admitted for intractable nausea, vomiting, and diarrhea. She had recently started quadruple therapy for H. pylori gastritis and reported intolerance to oral intake, with associated electrolyte disturbances. Initial labs were notable for hypokalemia, hypomagnesemia, mild transaminitis, hypoalbuminemia, and anemia. Urinalysis was suggestive of a urinary tract infection, and she was started on IV ceftriaxone pending cultures. Imaging, including chest x-ray and abdominal/pelvic CT, showed no acute abnormalities but did reveal hepatic steatosis with micronodular contour suggestive of cirrhosis. During her hospitalization, the patient was managed with IV fluids, electrolyte repletion, antiemetics, and IV pantoprazole. Her potassium and magnesium levels were corrected, and she was transitioned to oral supplementation as tolerated. She completed her course of H. pylori therapy and was transitioned to oral PPI. Her UTI treatment was discontinued after negative urine cultures. She was also treated for a yeast infection with topical miconazole. Her diet was advanced as tolerated, and she was able to maintain adequate oral hydration, though she continued to experience some nausea with solid foods. Her antihypertensive, antidepressant, and asthma medications were continued as appropriate. She remained hemodynamically stable throughout her stay, and her laboratory values and symptoms gradually improved. She was discharged home in stable condition with instructions for close outpatient follow-up with her primary care provider and gastroenterology for ongoing management of her liver disease and to monitor her electrolytes. Time Spent with Patient Time attestation: Total time spent providing and/or coordinating discharge services: 35 minutes Exam Const: General: cooperative, no acute distress and awake Eyes: General: appearance normal, both eyes and all related structures Neck: Neck: normal visual inspection Resp: Effort & Inspection: normal respiratory effort Auscultation: clear to auscultation bilaterally Cardio: Rate: regular rate Rhythm: regular rhythm GI: Auscultation: normal bowel sounds Skin: General skin exam: rashes (Under breast) Other: Erythematous blanchable rash under both breasts. Neuro: General: patient oriented x3 Speech: normal speech Motor exam (neuro): 5/5 motor strength present throughout Sensory Exam: normal sensation Extrem: General: normal to inspection Psych: Mental Status: mental status grossly normal Affect: normal affect DS: Data Data Completed and Pending Labs on day of discharge: Labs from last 24 hours 08/07/25 05:22 WBC 4.1 L RBC 2.97 L Hgb 8.9 L Hct 26.9 L MCV 90.6 MCH 30.0 MCHC 33.1 RDW 13.4 Plt Count 145 L MPV 10.1 Immature Gran % (Auto) 0.2 Neut % (Auto) 30.5 L Lymph % (Auto) 57.1 H [place] % (Auto) 8.0 Eos % (Auto) 3.7 Baso % (Auto) 0.5 Lymph # (Auto) 2.34 [place] # (Auto) 0.3 Eos # (Auto) 0.2 Baso # (Auto) 0.0 Abs Immat Gran (auto) 0.01 Absolute Neuts (auto) 1.3 Absolute Nucleated RBC 0.000 Nucleated RBC % 0.0 Sodium 135 L Potassium 3.0 L Chloride 106 Carbon Dioxide 27 Anion Gap 2 L BUN < 2 L Creatinine 0.74 Estim Creat Clear Calc 65 Estimated GFR > 60 Glucose 84 Calcium 7.8 L Magnesium 1.6 Total Bilirubin 0.9 AST 50 H ALT 38 H Alkaline Phosphatase 90 Total Protein 5.6 L Albumin 2.4 L Preliminary micro results at discharge 08/03/25 04:40 Blood Culture - Preliminary Blood 08/03/25 04:51 Blood Culture - Preliminary Blood Imaging Radiologist's impression: Ordering Physician: Enrique Wei MD Date of Service: 08/02/25 Procedure(s): XR chest 1V Accession Number(s): [id number] cc: Emery Lim MD; Prabha Dotson PA-C; Enrique Wei MD~ EXAMINATION: XR chest 1V, 08/02/2025 19:25 RADAR AIR TRAFFIC CONTROLLER HISTORY: syncope COMPARISON: No comparisons available. Technique: Single view. Findings: The lungs are clear, no effusion. No pneumothorax. Heart is normal size. Mediastinal and hilar contours are within normal limits. Bony thorax no acute abnormality. Impression: No acute cardiopulmonary abnormality. Reviewed, dictated and finalized at [facility]. R AIR TRAFFIC CONTROLLER Ordering Physician: Emery Lim MD Date of Service: 08/02/25 Procedure(s): CT abdomen pelvis wo con Accession Number(s): [id number] cc: Emery Lim MD; Prabha Dotson PA-C; Carrillo Tello MD~ CT ABDOMEN AND PELVIS WITHOUT CONTRAST Clinical History: abdominal pain, nausea and vomiting Comparison: CT abdomen pelvis without contrast 06/04/2025 Technique: Unenhanced axial images lung bases to symphysis pubis Coronal, sagittal reformats CT images acquired with automatic exposure control for dose reduction DLP: 718 mGy-cm Findings: Without intravenous contrast, sensitivity for detecting visceral parenchymal abnormalities decreased. Lung bases: Clear. Visualized heart and pericardium: Unremarkable. Liver: Enlarged. Steatosis. Micronodular contour suggesting cirrhosis. Gallbladder: Removed. Spleen: Unremarkable. Pancreas: Unremarkable. Adrenal glands: Unremarkable. Kidneys: Right kidney- No hydronephrosis. Tiny stone. Left kidney- No hydronephrosis. No renal stones. Distal esophagus/stomach: Unremarkable. Small bowel loops: Normal caliber and wall thickness. Colon: Diverticula. Normal caliber and wall thickness. Normal RLQ appendix. Nodes: No enlarged nodes. Peritoneum: No ascites. No free intraperitoneal air. Urinary bladder: Unremarkable. Uterus: Removed. Adnexa: No masses. Bones: No acute bony abnormality. Soft tissues: Small umbilical hernia with fat. Unopacified abdominal aorta: No aneurysmal dilatation. IMPRESSION: 1. No acute abnormality. 2. Additional findings as above. Reviewed, dictated and finalized at location [facility]. R AIR TRAFFIC CONTROLLER Discharge Plan Discharge Attending physician on discharge: Aguila Mares Consulting providers: Laury Ramsey; Zander Setiner; Jacki Waggoner; Sharona Hernandez; Debbie Alonso; Tylor Xavier; Bora Waddell Discharging Clinician: Rosemarie Higginbotham Patient Disposition: Home Activity: as tolerated Diet: as tolerated Discharge Instructions: Please follow up with GI as scheduled. Please follow up with general surgery as scheduled. Patient Instructions: Antibiotic Form Patient Language: Tamazight Stand Alone Forms: General Discharge Information Follow-up/Referrals: Prabha Dotson PA-C [Primary Care Provider, [facility]] Referral Note: keep the appointment on 08/11/25 that we discussed to follow up after this hospitalization. Ask your PCP to check your potassium level at this visit. Discharge Medications: New miconazole nitrate 2 % Cream 1 applic topical Q12HR Qty: 30 0RF magnesium oxide 400 mg (241.3 mg magnesium) Tablet 200 mg PO Q12HR Qty: 30 0RF potassium chloride [K-Tab] 20 mEq tablet extended release 20 meq PO DAILY Qty: 30 0RF ondansetron 4 mg tablet,disintegrating 4 mg PO Q6H PRN (Reason: nausea and vomiting) Qty: 30 0RF Continued Multi For Her 50 Plus 400-80 mcg Capsule 1 cap PO DAILY sertraline 100 mg tablet 100 mg PO DAILY Qty: 90 1RF montelukast 10 mg tablet 10 mg PO DAILY Qty: 90 1RF losartan 25 mg tablet 25 mg PO DAILY Qty: 90 1RF Patient Comments: takes at bedtime albuterol 90 mcg-budesonide 80 mcg/actuation HFA aerosol inhaler 90-80 mcg/actuation HFA aerosol inhaler 0RF albuterol sulfate 2.5 mg /3 mL (0.083 %) solution for nebulization 2.5 mg inhalation Q6H PRN (Reason: shortness of breath or wheezing) pantoprazole 40 mg tablet,delayed release (DR/EC) See Rx Instructions .ROUTE .COMPLEX Qty: 180 1RF Dose Instruction: TAKE 1 TABLET BY MOUTH TWICE A DAY Rx Instructions: TAKE 1 TABLET BY MOUTH TWICE A DAY Discontinued tetracycline 500 mg tablet 500 mg PO Q12H 14 Days Qty: 28 0RF ondansetron HCl 4 mg tablet 4 mg PO Q8H PRN (Reason: nausea and vomiting) Qty: 60 0RF Date of admission: 08/03/25 08:05 Primary Care Provider: Prabha Dotson Admitting Provider: Carrillo Tello Attending physician on admission: Rosemarie Higginbotham Condition: Stable Quality VTE Prophylaxis VTE prophylaxis: mechanical ordered
== END 2025-08-07 12:20 | disposition home or self-care (01) | DRG 392 ==
LOC: ANHED 08-03 00:01 → ANH3MED 08-03 00:42
PROVIDERS: Emergency Medicine; Family Medicine; Nurse Practitioner; Nurse Practitioner Family; Admitting Provider Internal Medicine; Emergency Provider Emergency Medicine; PCP Physician Assistant Medical; Visit Provider Nurse Practitioner Adult Health
DX: R11.2 Nausea with vomiting, unspecified (principal); N39.0 Urinary tract infection, site not specified; E46 Unspecified protein-calorie malnutrition; E87.6 Hypokalemia; E83.42 Hypomagnesemia; K21.9 Gastro-esophageal reflux disease without esophagitis; K29.70 Gastritis, unspecified, without bleeding; K76.0 Fatty (change of) liver, not elsewhere classified; D46.9 Myelodysplastic syndrome, unspecified; F32.A Depression, unspecified; M19.042 Primary osteoarthritis, left hand; J45.909 Unspecified asthma, uncomplicated; B37.9 Candidiasis, unspecified; B96.81 Helicobacter pylori [H. pylori] as the cause of diseases classified elsewhere; Z79.2 Long term (current) use of antibiotics; Z90.49 Acquired absence of other specified parts of digestive tract; Z68.30 Body mass index [BMI] 30.0-30.9, adult
CPT/HCPCS: 36415; 71045; 74176; 80048; 80053; 80061; 80074; 81001; 82948; 83605; 83690; 83735; 85025; 85027; 87040; 87086; 93005; 96360; 99199; 99285; A9270; G0378; J0696; J0780; J2405; J2470; J3475; J3480; J7030; J7040

== ENCOUNTER 2025-08-21 11:31 | Emergency (ER) | payer MEDICARE, SELFPAY ==
--- NOTE | ~2025-08-21 | CT_ITS ---
EXAM/PROCEDURE: CT abdomen pelvis wo con HISTORY: abdominal pain COMPARISON: August 02, 2025 TECHNIQUE: Noncontrast CT of the abdomen and pelvis FINDINGS: Minimal fibrotic and atelectatic changes in the lung bases similar to the previous exam. Lung bases are otherwise clear. Heart size normal. Coronary artery calcifications noted. Severe fatty infiltrative changes throughout the liver with no discrete lesion or mass seen. The liver is also mildly enlarged measuring 21 cm in the cephalocaudal dimension. Cholecystectomy clips. No hydroureteronephrosis. Normal size appendix and aorta. No hydroureteronephrosis. Urinary bladder is nondistended. Small umbilical omentum containing only hernia. Nonobstructive bowel gas pattern with no free air free fluid or pneumatosis. Patient appears status post hysterectomy. Degenerative changes throughout the lumbar spine. No bulky mesenteric or retroperitoneal lymphadenopathy or masses seen. Scattered diverticuli present but no gross acute diverticulitis. The stomach is unopacified and nondistended but no gross acute abnormality seen. IMPRESSION: Directed noncontrast exam demonstrating no gross acute abnormality to explain patient's symptoms. Several chronic appearing findings as above including hepatomegaly with severe fatty liver changes, post cholecystectomy/hysterectomy, and diverticular disease with no gross acute diverticulitis. Reviewed, dictated and finalized at location A. [employer] IMPRESSION: Directed noncontrast exam demonstrating no gross acute abnormality to explain p atient's symptoms. Several chronic appearing findings as above including hepato megaly with severe fatty liver changes, post cholecystectomy/hysterectomy, and diverticular disease with no gross acute diverticulitis.
[2025-08-21 11:35] VITALS: BP 114/59; PULSE 110; RESP 18; TEMP 36.4; O2SAT 95
--- OUTSIDE RECORDS SUMMARY | 2025-08-21 11:55 | XMS_ITS | Encounter Summary ---
Author Organization [facility] Address Formerly [facility], [facility] [place] [address] Care Team Providers Care Investment Recovery Technician Name Role Phone Mario Alberto Murray MD Primary Care Provider [phone] Prabha Dotson PA-C Primary Care Provider [phone] Encounter Details Date Type Department Care Team (Late st Contact Info) Description 11/30/2015 Abstract [facility] CONVERSION [address] [place] [address] , Generic Conversion, Social History Tobacco Use [...] Rule Out 10/03/2021 10/03/2021 10/03/2021 10:02 PM FLORAL ASSOCIATE COVID-19 Confirmed 10/03/2021 10/03/2021 12:32 AM FLORAL ASSOCIATE COVID-19 Rule Out 08/08/2023 08/08/2023 08/08/2023 10:12 AM FLORAL ASSOCIATE COVID-19 Confirmed 08/08/2023 08/08/2023 12:32 AM FLORAL ASSOCIATE COVID-19 Rule Out 10/05/2024 10/05/2024 10/05/2024 2:42 PM FLORAL ASSOCIATE documented as of this encounter Care Teams Investment Recovery Technician Relationship Specialty Start Date End Date Mario Alberto Murray MD PCP - General INTERNAL MEDICINE 04/03/21 08/07/23 Prabha Dotson PA-C [address] [place] [address] [address] [place] [address] PCP - General PHYSICIAN SAP BI ARCHITECT 08/08/23 documented as of this encounter
--- OUTSIDE RECORDS SUMMARY | 2025-08-21 11:55 | XMS_ITS | Clinical Summary ---
Author Organization [facility] Address [address] [facility] [place] [address] Care Team Providers Care Internet E Commerce Specialist Name Role Phone Unavailable Primary Care Provider [...] Encounters Date Type Department Care Team Description 07/17/2025 Abstract [facility] Oncology and Hematology - [place] [address] [place] [address] Catrina Pierre MD 07/16/2025 Orders Only [facility] Oncology and Hematology - [place] [address] [place] [address] Tylor Jaeger MD 07/15/2025 Orders Only [facility] Oncology and Hematology - [place] [address] [place] [address] Tylor Jaeger MD Chronic anemia (Primary Dx) [...] on file Legal Sex Female 8:31 AM AUCTIONEER AUTOMOBILE Gender Identity Not on file Sexual Orientation Not on file Last Filed Vital Signs Vital Sign Reading Time Taken Comments Blood Pressure 132/70 09/15/2024 11:43 AM AUCTIONEER AUTOMOBILE Pulse 99 09/15/2024 11:43 AM AUCTIONEER AUTOMOBILE Temperature 36.7 C (98 F) 09/15/2024 11:43 AM AUCTIONEER AUTOMOBILE Respiratory Rate 16 09/15/2024 11:4 3 AM AUCTIONEER AUTOMOBILE Oxygen Saturation 96% 09/15/2024 11: 43 AM AUCTIONEER AUTOMOBILE Inhaled Oxygen Concentration - - Weight 103.8 kg (228 lb 12.8 oz) 2024 11:43 AM AUCTIONEER AUTOMOBILE Height 157.5 cm (5' 2) 06/07/2022 9:52 AM CDT Body Mass Index 41.85 06/07/2022 9:52 AM CDT Plan of Treatment Upcoming Encounters Date Type Department Care Team (Late st Contact Info) Description 09/18/2025 8:30 AM AUCTIONEER AUTOMOBILE Office Visit [facility] Oncology and Hematology - [place] [address] [place] [address] Tylor Jaeger MD [address] [facility] [address] [place] [address] Health Maintenance Due Date Last [...] Procedure Name Priority Date/Time Associated Diagnosis Comments CBC WITH AUTODIFFERENTIAL Routine 2024 12:57 PM AUCTIONEER AUTOMOBILE XR DEXA BONE DENSITY AXIAL 1 OR MORE SITES Routine 12/17/2019 Osteoporosis, unspecified osteoporosis type, unspecified pathological fracture presence from Last 3 Months or Most Recently Relevant to Health Maintenance Results * CBC WITH AUTODIFFERENTIAL (07/16/2025 12:57 PM AUCTIONEER AUTOMOBILE) Blood us Tylor Jaeger MD HEMATOLOGY ORDERABLES Final Res ult * XR DEXA BONE DENSITY AXIAL 1 OR MORE SITES (12/17/2019) Anatomical Region Laterality Modality Other us Tylor Jaeger MD DIAGNOSTIC IMAGING ORDERABLES F inal Result from Last 3 Months or Most Recently Relevant to Health Maintenance Insurance MEDICARE PART A AND B [facility]LY [facility] MEDICARE SUPP AESSI MEDICARE PART A AND B [facility]LY [facility] MEDICARE SUPP AESSI
--- OUTSIDE RECORDS SUMMARY | 2025-08-21 11:55 | XMS_ITS | Clinical Summary ---
Author Organization [facility] Address [address] [place] [address] Care Team Providers Care Commutator Inspector Name Role Phone Prabha Dotson PA-C Primary Care Provider [phone] Allergies Active Allergy Reactions Criticality Noted Date [...] Comments Blood Pressure 160/66 10/05/2024 3:19 PM THREAT MONITORING ANALYST Pulse 70 10/05/2024 3:19 PM THREAT MONITORING ANALYST Temperature 37.2 C (98.9 F) 10/05/2024 3:19 PM THREAT MONITORING ANALYST Respiratory Rate 18 10/05/2024 3:19 PM THREAT MONITORING ANALYST Oxygen Saturation 99% 10/05/2024 3:19 PM THREAT MONITORING ANALYST Inhaled Oxygen Concentration - - Weight 101 kg (222 lb 10.6 oz) 10/05/2024 2:06 P M THREAT MONITORING ANALYST Height 157.5 cm (5' 2) 10/05/2024 2:06 PM THREAT MONITORING ANALYST Body Mass Index 40.73 10/05/2024 2:06 PM THREAT MONITORING ANALYST Plan of Treatment Health Maintenance Due Date [...] this topic Insurance MEDICARE [employer] Care Teams Commutator Inspector Relationship Specialty Start Date End Date Prabha Dotson PA-C [address] [place], [place] [address] [place] [address] PCP - General PHYSICIAN SHAKER SCREEN OPERATOR 08/08/23
[2025-08-21 11:59] VITALS: PULSE 90; RESP 10; O2SAT 94
[2025-08-21 12:00] VITALS: PULSE 94; RESP 31; O2SAT 95
[2025-08-21 12:03] LABS: Hematocrit 37.3 % (37.0-47.0); Hemoglobin 12.3 g/dL (12.0-15.0); Immature Granulocyte Percent A 0.3 % (0-0.5); Lymphocytes Absolute Auto 2.57 K/mm3 (0.9-3.2); Mean Corpuscular HGB Conc 33.0 g/dl (32-36); Mean Corpuscular Hemoglobin 30.0 pg (26-34); Mean Corpuscular Volume 91.0 fl (80-100); Nucleated Red Blood Cells Absolute Auto 0.000 K/mm3 (0.0-0.012); Nucleated Red Blood Cells Perc 0.0 % (0.0-0.2); Platelet Count Result 293 k/mm3 (150-375); Red Blood Count 4.10 M/mm3 (4.2-5.4); White Blood Count 8.9 K/mm3 (4.5-10.0)
[2025-08-21 12:14] LABS: Alanine Aminotransferase 46 U/L (6-35); Albumin Level 3.5 g/dL (3.5-5.1); Alkaline Phosphatase 131 U/L (38-126); Anion Gap 10 mmol/L (4-12); Aspartate Amino Transferase 67 U/L (14-36); Bilirubin,Total 1.1 mg/dL (0.2-1.3); Blood Urea Nitrogen 14 mg/dL (7-17); Calcium 8.9 mg/dL (8.4-10.2); Carbon Dioxide 18 mmol/L (22-30); Chloride 106 mmol/L (98-107); Estimated CRCL calculation 42 ml/min; Estimated Glomerular Filt Rate 55; Glucose 124 mg/dL (65-110); Lipase 81 U/L (23-300); Potassium 4.4 mmol/L (3.4-5.0); Sodium 134 mmol/L (137-145); Total Protein 7.9 g/dL (6.3-8.2)
[2025-08-21 12:15] VITALS: PULSE 88; RESP 21; O2SAT 95
[2025-08-21 12:30] VITALS: PULSE 88; RESP 20; O2SAT 95
[2025-08-21 12:45] VITALS: PULSE 86; RESP 25; O2SAT 94
[2025-08-21] MEDS: SODIUM CHLORIDE 0.9% IV 1,000 ML 999 ML IV CONT (13:09)
[2025-08-21] MEDS: FAMOTIDINE 20 MG/2 ML VIAL IV PUSH (13:09)
[2025-08-21] MEDS: METOCLOPRAMIDE HCL 10 MG TABLET PO (13:09)
[2025-08-21] MEDS: DICYCLOMINE HCL INJ 20 MG/2 ML VIAL IM (13:09)
[2025-08-21 13:22] LABS: Magnesium 1.8 mg/dL (1.6-2.3)
--- NOTE | 2025-08-21 14:22 | ED_ITS ---
HPI - General Adult General Chief complaint: Nausea/Vomiting/Diarrhea Stated complaint: N/V since March Time Seen by Provider: 08/21/25 11:45 History of Present Illness HPI narrative: Rosaura Sarmiento is a 70-year-old female who presents today with continued nausea vomiting that has been going on since March. She states that she will have about 3-4 episodes a week but she can keep liquids down. She says that she is having that surgery with GI physician next month. She better GI appointment today in the custody nausea vomiting going to they recommended coming it in evaluation make sure the x-ray okay. She currently states that she is having some nausea but has not vomited yet today. She has kept some liquids down she reports of just mild lower abdominal pain for 5. She also had a normal bowel movement earlier today. Related Data Home Medications ?Medication ?Instructions ?Recorded ?Confirmed ?Last Taken ?Type [id number]-[id number]-zzyat acid 1 cap PO DAILY 08/21/25 07/16/25 History 400 mcg-vitamin K 80 mcg capsule (Multi For Her 50 Plus) Held on 08/17/25. Instructions: Patient no longer taking albuterol sulfate 2.5 mg/3 mL 2.5 mg inhalation Q6H [place] N 08/03/25 08/21/25 Unknown History (0.083 %) solution for nebulization shortness of breat h or wheezing Allergies Allergy/AdvReac Type Severity Reaction Status Date / Time iodine Allergy Intermediate SWELLING Verified 08/21/25 11:32 Sulfa (Sulfonamide Allergy Intermediate hives Verified 08/21/25 11:32 Antibiotics) shellfish derived Allergy Mild Swelling Verified 08/21/25 11:32 of Lip/Tongue/Throat Review of Systems 2 Review of Systems: All systems reviewed & are unremarkable except as noted in HPI and below PMFSH Past Medical History Medical History Intractable nausea and vomiting Asthma Helicobacter positive gastritis MDS (myelodysplastic syndrome) Osteoporosis Hepatic steatosis Depression Arthritis Hyperglycemia Arthritis of finger of left hand Trigger finger, left little finger Surgical History Surgical History H/O arthroscopic knee surgery right knee H/O left wrist surgery History of elbow surgery ORIF History of tonsillectomy History of total hysterectomy with bilateral salpingo-oophorectomy (BSO) History of cholecystectomy Family History Family History Sibling Diabetes mellitus Malignant neoplasm of prostate Mother Family history of suicide Father Family history of Alzheimer's disease Social History Social History Social History: 03/22/25 somewhat confident with medical forms. She lives with Skip who is her durable power engineer second assistant for healthcare. She has 2 children. She is retired. code status: Full Code Smoking status: Never smoker Second hand tobacco smoke exposure: No Alcohol intake: never Substance use: never Substance use type: does not use Lack of Transportation: No Lack of Food: Never True Current Housing: I Have Housing Concerned About Future Housing: No Difficulty Paying Gas/Electric Bills: No Difficulty Paying for Meds: No Currently Unemployed: No Education: High School Diploma/GED Difficulty w/ Childcare or Family Care: No Living arrangements: with family Occupation/Education: retired Gender identity (if verbalized by the patient): Female Sexual Orientation (if Verbalized by the Patient): Straight or Heterosexual Spiritual care concerns: No Exam 2 Narrative: GENERAL: Well-appearing, well-nourished, and in no acute distress. HEAD: Normocephalic, atraumatic. EYES: PERRLA and EOMI. ENT: Nares clear, no rhinorrhea or epistaxis. Mucous membranes moist. Oropharynx without tonsillar hypertrophy exudate or other lesions. NECK: Supple. No adenopathy or masses. No carotid bruits or JVD CHEST: Clear to auscultation. No respiratory distress. No wheezes rales or rhonchi HEART: Regular rate and rhythm. No murmur heard. Normal peripheral pulses. ABDOMEN: Soft, nontender, nondistended, normal active bowel sounds. EXTREMITIES: Normal range of motion. No edema. SKIN: Warm, dry, no rash. NEURO: No focal deficits. Alert and oriented x3. PSYCH: Normal mood and affect. Course Vital Signs Vital signs: Vital Signs Temperature 36.4 C 08/21/25 11:35 Pulse Rate 110 H 08/21/25 11:35 Respiratory Rate 18 08/21/25 11:35 Blood Pressure 114/59 L 08/21/25 11:35 Pulse Oximetry 95 08/21/25 11:35 Oxygen Delivery Room Air 08/21/25 11:35 Temperature 36.4 C 08/21/25 11:35 Pulse Rate 86 08/21/25 12:45 Respiratory Rate 25 H 08/21/25 12:45 Blood Pressure 114/59 L 08/21/25 11:35 Pulse Oximetry 94 08/21/25 12:45 Oxygen Delivery Room Air 08/21/25 11:35 [facility] Narrative Medical decision making narrative: 70-year-old female with this continued intermittent no nausea vomiting since March On exam patient appears hydrated she reports of having some nausea but she has got liquids down today. She had no abdominal pain with palpation but states she does have some mild lower abdominal pain and still feels nauseated at this time. Denies any recent fevers states she had a normal bowel movement earlier today. Concern for bowel obstruction, diverticulitis, hernia,: Constipation Her labs are stable --she was concerned about her potassium magnesium which are within normal limits patient was treated with IV fluids and Reglan and IM Bentyl patient re-evaluated at 3:00 p.m. and states that she is feeling lot better she no longer feels nauseated her pain is gone Consulted with Dr. Boyd with GI and he is agreeable that she should be able to go home and will send her home with Reglan that she can take at home for her symptoms and just follow-up in clinic. Patient updated on consult with Dr. Boyd for outpatient follow-up she may continue the Reglan as ordered and if she develops any new worsening symptoms or unable to keep liquids sounds she is to return to the emergency department. She feels comfortable with this plan denies anything further at this time. Differential Diagnosis Differential Diagnosis: el obstruction, diverticulitis, hernia,: Constipation Lab Data [facility] Lab Attestation statement: I personally reviewed the patient's lab results. 08/21/25 11:57 08/21/25 11:57 Labs: Lab Results 08/21/25 08/21/25 Range/Units 11:57 14:38 WBC 8.9 (4.5-10.0) K/mm3 RBC 4.10 L (4.2-5.4) M/mm3 Hgb 12.3 D (12.0-15.0) g/dL Hct 37.3 (37.0-47.0) % MCV 91.0 (80-100) fl MCH 30.0 (26-34) pg MCHC 33.0 (32-36) g/dl RDW 13.1 (11.5-14.5) % Plt Count 293 D (150-375) k/mm3 MPV 10.7 H (7.4-10.4) fl Immature Gran % (Auto) 0.3 (0-0.5) % Neut % (Auto) 63.3 (45.5-73.1) % Lymph % (Auto) 28.8 (18.3-44.2) % [place] % (Auto) 6.3 (2.6-8.5) % Eos % (Auto) 0.9 (0-4.4) % Baso % (Auto) 0.4 (0.2-1.2) % Lymph # (Auto) 2.57 (0.9-3.2) K/mm3 [place] # (Auto) 0.6 (0.1-0.6) K/mm3 Eos # (Auto) 0.1 (0-0.3) K/mm3 Baso # (Auto) 0.0 (0.0-0.1) K/mm3 Abs Immat Gran (auto) 0.03 (0.00-0.031) K/mm3 Absolute Neuts (auto) 5.6 (1.3-6.7) K/mm3 Absolute Nucleated RBC 0.000 (0.0-0.012) K/mm3 Nucleated RBC % 0.0 (0.0-0.2) % Sodium 134 L (137-145) mmol/L Potassium 4.4 (3.4-5.0) mmol/L Chloride 106 (98-107) mmol/L Carbon Dioxide 18 L (22-30) mmol/L Anion Gap 10 (4-12) mmol/L BUN 14 D (7-17) mg/dL Creatinine 0.99 (0.7-1.0) mg/dL Estim Creat Clear Calc 42 ml/min Estimated GFR 55 L (59 - ) Glucose 124 H (65-110) mg/dL Calcium 8.9 (8.4-10.2) mg/dL Magnesium 1.8 (1.6-2.3) mg/dL Total Bilirubin 1.1 (0.2-1.3) mg/dL AST 67 H (14-36) U/L ALT 46 H (6-35) U/L Alkaline Phosphatase 131 H (38-126) U/L Total Protein 7.9 (6.3-8.2) g/dL Albumin 3.5 (3.5-5.1) g/dL Lipase 81 (23-300) U/L Urine Color Dark yellow (Yellow) Urine Appearance Cloudy H (Clear) Urine pH 5.5 (5.0-9.0) Ur Specific [place] 1.033 (1.001-1.035) Urine Protein 1+ H (Negative) mg/dL Urine Glucose (UA) Negative (Negative) mg/dL Urine Ketones 1+ H (Negative) mg/dL Ur Blood (Man) Negative (Negative) Urine Nitrate Negative (Negative) Urine Bilirubin 2+ H (Negative) Urine Urobilinogen 1.0 (<2.0) mg/dL Add Ur Microanalysis Reviewed Leukocyte Esterase Rfl 1+ H (Negative) KRYSTLE/UL Urine RBC 0-2 (0-2) /hpf Urine WBC 11-20 H (0-3) /hpf Ur Squamous Epith Cells Many H (Few) /hpf Urine Bacteria None seen /hpf Urine Casts >20 Imaging Data Attestation: I personally reviewed and interpreted this imaging study as follows: My impression: Impressions Abdomen/Pelvis CT 08/21/25 13:20 IMPRESSION: Directed noncontrast exam demonstrating no gross acute abnormality to explain patient's symptoms. Several chronic appearing findings as above including hepatomegaly with severe fatty liver changes, post cholecystectomy/hysterectomy, and diverticular disease with no gross acute diverticulitis. Radiologist's impression: ITS Impressions Abdomen/Pelvis CT 08/21/25 13:20 IMPRESSION: Directed noncontrast exam demonstrating no gross acute abnormality to explain patient's symptoms. Several chronic appearing findings as above including hepatomegaly with severe fatty liver changes, post cholecystectomy/hysterectomy, and diverticular disease with no gross acute diverticulitis. Discharge Plan Discharge Clinical Impression: Nausea & vomiting Qualifiers: Vomiting type: unspecified Qualified Code(s): R11.2 - Nausea with vomiting, unspecified Patient Disposition: Home Condition: Stable Instructions: Antibiotic Form Additional Instructions: Continue to take your medications as prescribed you may also use the Reglan as ordered 1 nausea make sure your keeping fluids down. Please follow-up with your GI specialist as scheduled. If he develops any new or worsening symptoms otherwise return emergency department Patient Language: Croatian Prescriptions: New metoclopramide HCl [Reglan] 10 mg tablet 10 mg PO Q6H PRN (Reason: nausea and vomiting) Qty: 20 0RF No Action Multi For Her 50 Plus 400-80 mcg Capsule 1 cap PO DAILY sertraline 100 mg tablet 100 mg PO DAILY Qty: 90 1RF montelukast 10 mg tablet 10 mg PO DAILY Qty: 90 1RF losartan 25 mg tablet 25 mg PO DAILY Qty: 90 1RF Patient Comments: takes at bedtime famotidine 40 mg tablet 40 mg PO .12 pm and HS Qty: 60 3RF omeprazole 40 mg capsule,delayed release(DR/EC) 40 mg PO BID Qty: 60 3RF albuterol 90 mcg-budesonide 80 mcg/actuation HFA aerosol inhaler 90-80 mcg/actuation HFA aerosol inhaler 0RF albuterol sulfate 2.5 mg /3 mL (0.083 %) solution for nebulization 2.5 mg inhalation Q6H PRN (Reason: shortness of breath or wheezing) miconazole nitrate 2 % Cream 1 applic topical Q12HR Qty: 30 0RF magnesium oxide 400 mg (241.3 mg magnesium) Tablet 200 mg PO Q12HR Qty: 30 0RF potassium chloride [K-Tab] 20 mEq tablet extended release 20 meq PO DAILY Qty: 30 0RF ondansetron 4 mg tablet,disintegrating 4 mg PO Q6H PRN (Reason: nausea and vomiting) Qty: 30 0RF Follow-up/Referrals: Prabha Dotson PA-C [Primary Care Provider, Family Practice] - 1 Week Time of Disposition: 15:05
[2025-08-21 15:13] LABS: Add Urine Microscopic? YES; Appearance Urine Cloudy (Clear); Glucose Urine UA Negative (Negative); Leukocyte Esterase Ur 1+ LEU/UL (Negative); Need Manual Microscopic Reviewed; Nitrate Urine Negative (Negative); Non Pathogenic Casts >20; Specific Grav Ur 1.033 (1.001-1.035)
== END 2025-08-21 15:19 | disposition home or self-care (01) ==
PROVIDERS: Emergency Provider Nurse Practitioner Family; PCP Physician Assistant Medical
DX: R11.2 Nausea with vomiting, unspecified (principal); J45.909 Unspecified asthma, uncomplicated; F32.A Depression, unspecified; M19.90 Unspecified osteoarthritis, unspecified site
CPT/HCPCS: 36415; 74176; 80053; 81001; 83690; 83735; 85025; 96361; 96372; 96374; 99284; A9270; J0500; J7030